=== PATIENT | male | born 1955 | race Caucasian/White ===

== ENCOUNTER → 2025-10-24 | Outpatient (CLI) | payer MEDICARE, SELFPAY ==
--- NOTE | 2025-10-24 09:08 | ECHOD_ITS ---
Reason For Study Reason For Study: AR Procedure This was a 2D Doppler, Color Flow transthoracic echocardiogram. Exam performed in department. Left Ventricle Normal-sized left ventricle. Left ventricular ejection fraction by Oshea's biplane: 50%. Systolic function borderline reduced. E/e' suggest normal filling pressures. No regional wall motion abnormalities noted. Borderline global hypokinesis. Right Ventricle Normal right ventricle. Normal systolic function. Unable to estimate RV systolic pressure due to insufficient tricuspid regurgitant envelope. Atria The left and right atria are normal. Estimated RA pressure: 3 mmHg. Normal atrial septum. Mitral Valve Normal mitral valve. Mild mitral regurgitation. No mitral stenosis. Tricuspid Valve Normal tricuspid valve. Trace tricuspid regurgitation. No tricuspid stenosis. Aortic Valve Trileaflet aortic valve. Mild aortic regurgitation. No hemodynamically significant aortic stenosis. Pulmonic Valve Normal pulmonic valve. Trace pulmonic regurgitation. No pulmonic stenosis. Great Vessels Normal aortic root. Normal ascending aorta. Pericardium/Pleural No pericardial effusion. MMode/2D Measurements & Calculations LVIDd: 5.4 cm IVSd: 1.2 cm Ao root diam: 3.5 cm LVIDs: 3.5 cm LVPWd: 1.2 cm RVDd: 3.3 cm FS: 36.6 % LAV(MOD-bp): 52.9 ml LVAd ap4: 24.3 cm2 SV(MOD-sp4): 31.9 ml LAV(MOD-bp) Indexed: 28.7 ml/m2 LVLd ap4: 7.6 cm SI(MOD-sp4): 17.3 ml/m2 LAV(MOD-sp2): 61.7 ml EDV(MOD-sp4): 66.8 ml LAV(MOD-sp4): 45.2 ml EDV(sp4-el): 66.5 ml LVAs ap4: 15.8 cm2 LVLs ap4: 6.4 cm ESV(MOD-sp4): 34.9 ml ESV(sp4-el): 33.2 ml EF(MOD-sp4): 47.8 % EF(sp4-el): 50.1 % SV(sp4-el): 33.3 ml LA A4 area: 17.7 cm2 RA A4 area: 15.7 cm2 Time Measurements MV dec time: 0.35 sec Doppler Measurements & Calculations MV E max jett: 58.9 cm/sec Lat Peak E' Jett: 9.2 cm/sec Med Peak E' Jett: 8.6 cm/sec MV A max jett: 47.1 cm/sec E/E' lat: 6.4 E/E' med: 6.9 MV E/A: 1.3 MV V2 max: 72.6 cm/sec Ao V2 max: 135.4 cm/sec MV max P.1 mmHg MV dec slope: 166.2 cm/sec2 Ao max P.3 mmHg MV V2 mean: 36.3 cm/sec Ao V2 mean: 90.8 cm/sec MV mean P.70 mmHg Ao mean P.8 mmHg MV V2 VTI: 34.8 cm Ao V2 VTI: 34.9 cm AV (velocity ratio): 0.73 LV V1 max: 101.1 cm/sec PA V2 max: 99.8 cm/sec LV V1 max P.1 mmHg PA V2 mean: 63.2 cm/sec LV V1 mean P.1 mmHg LV V1 mean: 67.4 cm/sec LV V1 VTI: 25.4 cm ECHO/Echo Complete Interpretation Summary Left ventricular EF by Oshea's biplane: 50%, Borderline reduced LV function w ith borderline global LV hypokinesis Normal right ventricular systolic function Mild aortic regurgitation Mild mitral regurgitation Ordering Physician: Nestor Ward Referring Physician: Nestor Ward Performed By: Rosa Cortes RCS
--- OUTSIDE RECORDS SUMMARY | 2025-10-24 09:40 | XMS RPT_ITS | CCD ---
Author Organization [facility] Care Team Providers Care Outcomes Specialist Name Role Phone MELVI AMARAL Consulting Unavailable KEYA, DR DEJA Iniguez Admitting Unavaila ble KEYA, DR DEJA Iniguez Primary Care Unavaila ble KEYA, DR DEJA Iniguez Attending Unavaila ble PROVIDER, UNKNOWN Consulting Unavailable KEYA, DR DEJA Iniguez Admitting Unavaila ble KEYA, DR DEJA Iniguez Primary Care Unavaila ble KEYA, DR DEJA Iniguez Attending Unavaila ble Melvi Amaral MD Primary Care Provider Melvi Amaral MD Primary Care Provider Melvi Amaral MD Primary Care Provider Melvi Amaral MD Primary Care Provider Melvi Amaral MD Primary Care Provider Erik SERVER.Zulay HOYT Unavailable Rajeev SERVERAustyn BLANCO Unavailable MELVI AMARAL Primary Care Unavailable MELVI AMARAL Attending Unavailable MELVI AMARAL Attending Unavailable MELVI AMARAL Primary Care Unavailable CARLOS A HOLLAND Attending Unavailable CHRISTINA DRAKE Referring Unavailable MELVI AMARAL Primary Care Unavailable MELVI AMARAL Primary Care Unavailable CHRISTINA DRAKE Attending Unavailable MELVI AMARAL Primary Care Unavailable MELVI AMARAL Referring Unavailable Melvi Amaral Referring Unavailable Melvi Amaral Primary Care Unavailable Nestor Ward Attending Unavailable Allergies Allergy Classification Reported Allergen(s) Allergy Type Date of Onset Reaction(s) Facility (20 sources) Amoxicillin / Clavulanate; Translations: [AMOXICILLIN-POT CLAVULANATE] Drug Allergy 09-30-2005 Rash [facility] Work Phone: (20 sources) Cephalexin; Translations: [CEPHALEXIN] Drug Allergy 09-30-2005 Hives [facility] Work Phone: (20 sources) predniSONE; Translations: [PREDNISONE] Drug Allergy 07-23-2022 Intolerance [facility] Work Phone: (1 source) Amoxicillin Drug Allergy 07-11-2025 [facility] Repository (1 source) Cephalexin Drug Allergy 07-11-2025 [facility] Repository (1 source) Clavulanate Drug Allergy 07-11-2025 [facility] Repository (1 source) predniSONE Drug Allergy 07-11-2025 [facility] Repository Medications Current Medications Medication Drug Class(es) Dates Sig (Normalized) Sig (Original) [id number] 200 actuat albuterol 0.09 mg/actuat metered dose inhaler (20 sources) beta2-Adrenergic Agonist Start: 07-05-2024 take 2 puff(s) by inhalation every four hours as needed albuterol HFA (PROVENTIL HFA, VENTOLIN HFA) 90 mcg/actuation inhaler Inhale 2 Puffs as instructed every 4 hours as needed. 1 Each 5 07/05/2024 Active Start: 05-11-2020 End: 07-05-2024 take 2 puff(s) by inhalation every six hours as needed albuterol HFA (PROVENTIL HFA, VENTOLIN HFA) 90 mcg/actuation inhaler Indications: Encounter for medication refill Inhale 2 Puffs as instructed every 6 hours as needed. 1 Each 2 11/19/2021 07/05/2024 Discontinued Comment on above: Inhale 2 Puffs as in structed every 6 hours as needed. fexofenadine (20 sources) Histamine-1 Receptor Antagonist fexofenadine HCl (CEYL ALLERGY ORAL) Take 1 tablet by mouth as needed. Active fexofenadine HCl (CELY ALLERGY ORAL) Take 1 tablet by mouth as needed. 0 Active Comment on above: Take 1 tablet by kris th as needed. levothyroxine sodium 0.175 mg oral tablet (20 sources) l-Thyroxine Start: 08-31-20 End: 09-10-20 take 1 tablet by mouth once daily for thyroid dysfunction levothyroxine (LEVOXYL) 175 mcg tablet Take 1 tablet by mouth once daily. Take on empty stomach. For Thyroid. 30 tablet 11 09/10/2024 Active Start: 05-02-2020 End: 04-30-2021 take 1 tablet by mouth once daily for thyroid dysfunction levothyroxine (LEVOXYL) 150 mcg tablet Take 1 tablet by mouth once daily. Take on empty stomach. For Thyroid. 30 tablet 11 05/02/2020 04/30/2021 Discontinued Comment on above: Take 1 tablet by kris th once daily. Take on empty stomach. For Thyroid. meloxicam 15 mg oral tablet (20 sources) Nonsteroidal Anti-inflammatory Drug Start: 03-13-20 End: 08-13-20 take 1 tablet by mouth once daily at mealtime meloxicam (MOBIC) 15 mg tablet Indications: Arthritis Take 1 tablet by mouth once daily. Take with food. 30 tablet 5 08/13/2024 Active Comment on above: Take 1 tablet by kris th once daily. Take with food. perflutren lipid microspheres 1.3 mL in NaCl (PF) 0.9% 10 mL injection (DEFINITY) (9 sources) Start: 07-26-20 End: 10-25-20 perflutren lipid microspheres 1.3 mL in NaCl (PF) 0.9% 10 mL injection (DEFINITY) polyethylene glycol 3350 [id number] mg / potassium chloride 2970 mg / sodium bicarbonate 6740 mg / sodium chloride 5860 mg / sodium sulfate 30347 mg powder for oral solution (1 source) Osmotic Laxative Start: 09-21-20 End: 09-21-20 peg 3350-Electrolytes (GOLYTELY) 236-22.74-6.74 -5.86 gram suspension Indications: Screen for colon cancer , History of colonic polyps Take 4,000 mL by mouth one time only for 1 dose. Refer to printed prep instructions from your provider. 4000 mL 09/21/2024 09/21/2024 Active predniSONE 10 mg oral tablet (1 source) Start: 07-09-20 22 End: 07-18-20 22 predniSONE (DELTASONE) 10 mg tablet Indications: Itching Take 4 tabs daily for 3 days, then 2 tabs daily for 3 days, then 1 tab daily for 3 days with food. 21 tablet 0 07/09/2022 07/18/2022 Active Comment on above: Take 4 tabs daily fo r 3 days, then 2 tabs daily for 3 days, then 1 tab daily for 3 days with food. 125 ml sodium chloride 9 mg/ml prefilled syringe (9 sources) Start: 07-26-20 End: 10-25-20 sodium chloride 0.9 % (flush) 10 mL (BD POSIFLUSH) Completed/Discontinued Medications Medication Drug Class(es) Dates Sig (Normalized) Sig (Original) 120 actuat budesonide 0.16 mg/actuat / formoterol fumarate 0.0048 mg/actuat / glycopyrrolate 0.009 mg/actuat metered dose inhaler (4 sources) Corticosteroid, beta2-Adrenergic Agonist Start: 10-12-2024 End: 05-09-2025 take 2 puff(s) by inhalation twice daily budesonide-glycopy r-formoterol (BREZTRI) 160-9-4.8 mcg/actuation HFA aerosol inhaler Inhale 2 Puffs as instructed two times a day. 10.7 g 5 10/12/2024 05/09/2025 Discontinued Start: 07-27-2024 End: 08-13-2024 take 2 puff(s) by inhalation twice daily bnrtwpxznx-chfwsggs-yyxxinmokh (BREZTRI AEROSPHERE) 160-9-4.8 mcg/actuation HFA aerosol inhaler Inhale 2 Puffs as instructed two times a day. 1 Each 5 07/27/2024 08/13/2024 Discontinued calcium chloride 0.0014 meq/ml / potassium chloride 0.004 meq/ml / sodium chloride 0.103 meq/ml / sodium lactate 0.028 meq/ml injectable solution (1 source) Start: 10-07-2024 End: 10-07-2024 take 30 mL intravenously every hour 30 mL/hr, INTRAVENOUS, CONTINUOUS, Starting on Vangie 10/07/24 at 1230, Until Vangie 10/07/24 at 1317, Preprocedure diphenhydrAMINE (1 source) Histamine-1 Receptor Antagonist Start: 10-07-2024 End: 10-07-2024 12.5-50 mg, INTRAVENOUS, DIRECTED, Starting on Vangie 10/07/24 at 1300, Until Vangie 10/07/24 at 1659, DOSING DIRECTED BY PHYSICIAN FOR PROCEDURAL SEDATION ONLY, Intraprocedure 1 ml fentaNYL 0.05 mg/ml injection (1 source) Opioid Agonist Start: 10-07-2024 End: 10-07-2024 25-100 mcg, INTRAVENOUS, DIRECTED, Starting on Vangie 10/07/24 at 1300, Until Vangie 10/07/24 at 1659, DOSING DIRECTED BY PHYSICIAN FOR PROCEDURAL SEDATION ONLY, Intraprocedure 12 hr fexofenadine hydrochloride 60 mg / pseudoephedrine hydrochloride 120 mg extended release oral tablet (1 source) alpha-Adrenergic Agonist, Histamine-1 Receptor Antagonist Start: 06-06-2010 End: 05-15-2021 p-ephed hcl/fexofenadine hcl(CELY-D 12 HOUR 60 MG-120 MG TAB) Indications: Allergic rhinitis, cause unspecified Take 1 pill twice daily as needed for allegies 180 3 06/06/2010 05/15/2021 Discontinued (Discontinued by Patient) 120 actuat fluticasone propionate 0.11 mg/actuat metered dose inhaler (20 sources) Corticosteroid Start: 07-26-2022 End: 05-26-2023 fluticasone (FLOVENT HFA) 110 mcg/actuation inhaler Inhale 2 Puffs as instructed twice daily. VIA SPACER THEN RINSE AND GARGLE MOUTH WITH WATER. 1 Each 07/26/2022 05/26/2023 Discontinued Start: 08-07-2021 End: 07-26-2022 fluticasone (FLOVENT HFA) 44 mcg/actuation inhaler 1 inhalation twice daily every day, or as directed. 1 Inhaler 08/07/2021 07/26/2022 Discontinued (Changing Therapy/Dosage Form) Comment on above: 1 inhalation twice d aily every day, or as directed. Inhale 2 Puffs as in structed twice daily. VIA SPACER THEN RINSE AND GARGLE MOUTH WITH WATER. fluticasone / salmeterol (5 sources) Corticosteroid, beta2-Adrenergic Agonist Start: 05-26-20 End: 12-29-19 take 1 puff(s) by inhalation twice daily fluticasone-salmeter ol (WIXELA INHUB) 100-50 mcg/dose inhaler Indications: Mild intermittent asthma without complication Inhale 1 Puff as instructed twice daily. 1 Each 05/26/2023 12/29/2023 Discontinued (Changing Therapy/Dosage Form) Start: 05-26-2023 take 1 puff(s) by in halation twice daily fluticasone-salmeterol (WIXELA INHUB) 100-50 mcg/dose inhaler Indications: Mild intermittent asthma without complication Inhale 1 Puff as instructed twice daily. 1 Each 05/26/2023 Active Comment on above: Inhale 1 Puff as ins tructed twice daily. fluticasone-umeclid in-vilanter (TRELEGY ELLIPTA) 200-62.5-25 mcg inhalation powder (14 sources) Start: End: take 1 puff(s) by inhalation once daily fluticasone-umeclidi n-vilanter (TRELEGY ELLIPTA) 200-62.5-25 mcg inhalation powder Inhale 1 Puff as instructed once daily. 1 Each 12/29/2023 10/12/2024 Discontinued (Course of therapy completed) Start: 12-29-2023 take 1 puff(s) by inhalation once daily pivnhabuysy-flysfeixd-zulrrqah (TRELEGY ELLIPTA) 200-62.5-25 mcg inhalation powder Inhale 1 Puff as instructed once daily. 1 Each 12/29/2023 Active Start: 10-28-2023 End: 12-29-2023 take 1 puff(s) by inhalation once daily iaxccohxizc-vcycemckm-pkztirdg (TRELEGY ELLIPTA) 200-62.5-25 mcg inhalation powder Inhale 1 Puff as instructed once daily. 1 Each 10/28/2023 12/29/2023 Discontinued Start: 10-28-2023 take 1 puff(s) by inhalation once daily orbfpvermfa-xfiieakjk-anmxagcq (TRELEGY ELLIPTA) 200-62.5-25 mcg inhalation powder Inhale 1 Puff as instructed once daily. 1 Each 10/28/2023 Active Comment on above: Inhale 1 Puff as ins tructed once daily. 5 ml midazolam 1 mg/ml injection (1 source) Benzodiazepine Start: 10-07-20 End: 10-07-20 1-5 mg, INTRAVENOUS, DIRECTED, Starting on Vangie 10/07/24 at 1300, Until Vangie 10/07/24 at 1659, DOSING DIRECTED BY PHYSICIAN FOR PROCEDURAL SEDATION ONLY, Intraprocedure montelukast 10 mg oral tablet (20 sources) Leukotriene Receptor Antagonist Start: 10-30-20 End: 05-09-20 take 1 tablet by mouth once daily at bedtime montelukast (SINGULAIR) 10 mg tablet Take 1 tablet by mouth daily at bedtime. 30 tablet 11 12/26/2023 05/09/2025 Discontinued Comment on above: Take 1 tablet by kris th daily at bedtime. nirmatrelvir tablet 150 mg and ritonavir tablet 100 mg in a dose pack (PAXLOVID) (4 sources) Start: 05-15-20 End: 05-20-20 nirmatrelvir tablet 150 mg and ritonavir tablet 100 mg in a dose pack (PAXLOVID) Indications: COVID Administer TWO pink nirmatrelvir 150 mg tablets and ONE white ritonavir 100 mg tablet for a total of three tablets twice daily. 30 tablet 0 05/15/2022 05/20/2022 Start: 05-15-2022 End: 05-20-2022 nirmatrelvir tablet 150 mg a nd ritonavir tablet 100 mg in a dose pack (PAXLOVID) Indications: COVID Administer TWO pink nirmatrelvir 150 mg tablets and ONE white ritonavir 100 mg tablet for a total of three tablets twice daily. 30 tablet 0 05/15/2022 05/20/2022 Active Start: 05-15-2022 End: 05-15-2022 nirmatrelvir tablet 150 mg a nd ritonavir tablet 100 mg in a dose pack (PAXLOVID) Indications: COVID Administer TWO pink nirmatrelvir 150 mg tablets and ONE white ritonavir 100 mg tablet for a total of three tablets twice daily. 30 tablet 0 05/15/2022 05/15/2022 Discontinued Comment on above: Administer TWO pink nirmatrelvir 150 mg tablets and ONE white ritonavir 100 mg tablet for a total of three tablets twice daily. Problems Active Problems Problem Classification Problem Date Documented Date Episodic/Chronic Adjustment disorders (20 sources) Adjustment disorder with depressed mood; Translations: [Adjustment disorder with depressed mood] Onset: 10-17-2006 10-17-2006 Chronic Asthma (20 sources) Uncomplicated asthma; Translations: [Unspecified asthma, uncomplicated] Onset: 11-25-2022 Chronic Cardiac dysrhythmias (1 source) Palpitations; Translations: [Palpitations] Episodic Conditions associated with dizziness or vertigo (3 sources) Dizziness; Translations: [Dizziness and giddiness] Onset: 05-09-2025 05-09-2025 Episodic Disorders of lipid metabolism (20 sources) Mixed hyperlipidemia; Translations: [Mixed hyperlipidemia] Onset: 10-17-2006 10-17-2006 Chronic Esophageal disorders (1 source) Gastroesophageal reflux disease; Translations: [Gastro-esophageal reflux disease without esophagitis] 12-29-2023 Chronic Osteoarthritis (2 sources) Arthritis; Translations: [Unspecified osteoarthritis, unspecified site] 06-23-2023 Chronic Other and unspecified benign neoplasm (2 sources) Polyp of colon; Translations: [Polyp of colon] Episodic Other infections; including parasitic (2 sources) Post-viral disorder; 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 Other inflammatory condition of skin (1 source) Itching ; Translations: [Pruritus, unspecified] Episodic Other nervous system disorders (1 source) Neuropathy; Translations: [Polyneuropathy, unspecified] Chronic Other skin disorders (1 source) Eruption; Translations: [Rash and other nonspecific skin eruption] Episodic Other upper respiratory disease (20 sources) Allergic rhinitis; Translations: [Allergic rhinitis, unspecified] Onset: 10-17-2019 11-09-2019 Chronic Other upper respiratory disease (1 source) Allergic rhinitis due to pollen; Translations: [Allergic rhinitis due to pollen] 06-23-2023 Chronic Residual codes; unclassified (1 source) Tobacco smoking consumption - finding; Translations: [Tobacco use] 12-29-2023 Episodic Syncope (2 sources) Syncope and collapse; Translations: [Syncope and collapse] 05-09-2025 Episodic Thyroid disorders (20 sources) Hypothyroidism; Translations: [Hypothyroidism, unspecified] Onset: 10-17-2006 12-14-2015 Chronic Unclassified (1 source) History of colonic polyps; Translations: [History of colonic polyps] Onset: 10-07-2024 Viral infection (2 sources) Disease caused by 2019-nCoV; Translations: [COVID-19] Episodic Past or Other Problems Problem Classification Problem Date Documented Da te Episodic/Chronic Allergic reactions (20 sources) Asteatotic eczema; Translations: [Other specified dermatitis] Onset: 04-03-2012 04-03-2012 Episodic Gastrointestinal hemorrhage (20 sources) Hematochezia; Translations: [Melena] Onset: 10-21-2008 10-21-2008 Episodic Other and unspecified benign neoplasm (8 sources) History of polyp of colon; Translations: [Personal history of colonic polyps] Onset: 10-07-2024 Episodic Other bone disease and musculoskeletal deformities (20 sources) Senile osteopenia; Translations: [Other specified disorders of bone density and structure, unspecified site] Onset: 08-19-2018 08-19-2018 Episodic Other inflammatory condition of skin (19 sources) Itching of skin; Translations: [Pruritus, unspecified] Onset: 04-03-2012 04-03-2012 Episodic Other inflammatory condition of skin (20 sources) Pruritus, unspecified; Translations: [Unspecified pruritic disorder] Onset: 04-03-2012 04-03-2012 Episodic Other injuries and conditions due to external causes (20 sources) Excoriation of skin; Translations: [Other injury of unspecified body region, initial encounter] Onset: 04-03-2012 04-03-2012 Episodic Other screening for suspected conditions (not mental disorders or infectious disease) (15 sources) Patient encounter status; Translations: [Encounter for screening for malignant neoplasm of colon] Onset: 08-20-2024 04-09-2021 Episodic Other skin disorders (20 sources) Asteatosis cutis; Translations: [Xerosis cutis] Onset: 04-03-2012 04-03-2012 Episodic Results Test Name Value Interpretation Reference Range Facil maribeth Belle 05-23-2025 MAGGY Telephone (FAMPWS) DAIANA ABDALLA ([id number]) 1955 M Date Time Provider Department 05/23/25 JACKELYNMELVI ASTORGA Steven GAUTHIER During your visit today, we recorded the following information about you: Anny Dobson LPN 05/23/2025 11:19 AM Signed Pt reports he had OV with pcp on 05/09/25 for near syncope. Pt reports it was discussed at the appt to have pt use Zio monitor if pt continued to have episodes and if they were more frequent. (Discussed the possibility of using a Zio monitor for extended cardiac monitoring if episodes become more frequent (more than once a week) or severe). Pt reports he would like to try the Zio Monitor. Advised pt provider is out of the office until 05/26 and [employer] Section Supervisor may review. Pt reports he is out of town at this time. Please call pt with provider message. SAMI Price Krista, LPN 05/24/2025 12:52 PM Signed Pt is calling back today and would like some type of response to message below. Pt would like Zio ordered. Please call pt when provider has reviewed message. SAMI Price Jesse, APRN.EVELINA 05/24/2025 1:56 PM Signed Please let the patient know that I have ordered. Should be mailed to him today or tomorrow. Austyn Boo APRN.Evelin Cristobal MA 05/24/2025 3:56 PM Signed Pt notified. Evelin Gregg MA Allergies As of Date: 05/23/2025 Noted Allergy Reaction AUGMENTIN (AMOXICILLIN-POT CLAVUL*09/30/2005 2 - Rash KEFLEX (CEPHALEXIN) 09/30/2005 4 - Hives PREDNISONE 07/23/2022 5 - Intolerance Comments: Dizziness, tachycardia Date Reviewed: 05/09/2025 Reviewed by: Evelin Gregg MA - Fully Assessed Reason for Visit: Orders [681] Visit Diagnosis:Syncope and collapse [R55] Order(s):OUTSIDE VENDOR CARDIAC OUTPATIENT EXTENDED RHYTHM RECORDING (WITHOUT TELEMETRY) [[id number]] Order #: [id number]: 1 Prescriptions as of 05/24/2025 - levothyroxine (LEVOXYL) 175 mcg tablet Take 1 tablet by mouth once daily. Take on empty stomach. For Thyroid. - meloxicam (MOBIC) 15 mg tablet Take 1 tablet by mouth once daily. Take with food. - albuterol HFA (PROVENTIL HFA, VENTOLIN HFA) 90 mcg/actuation inhaler Inhale 2 Puffs as instructed every 4 hours as needed. - fexofenadine HCl (CELY ALLERGY ORAL) Take 1 tablet by mouth as needed. Problem List As Of Date 05/23/2025 Noted Resolved MIXED HYPERLIPIDEMIA [E78.2] 10/17/2006 ADJUSTMENT DISORDER WITH DEPRESSED MOOD [F43.21]10/17/2006 Hypothyroidism [E03.9] 10/17/2006 MELENA, BLOOD IN STOOL [K92.1] 10/21/2008 Pruritus [L29.9] 04/03/2012 Asteatotic eczema [L30.8] 04/03/2012 Xerosis cutis [L85.3] 04/03/2012 Excoriation [T14.8XXA] 04/03/2012 Osteopenia, senile [M85.80] 08/19/2018 Allergic rhinitis due to allergen [J30.9] 10/2019 Mild intermittent asthma without complication [*11/25/2022 History of colonic polyps [Z86.0100] 10/07/2024 Screen for colon cancer [Z12.11] 10/07/2024 Encounter Status:Closed by EVELIN GREGG on 05/24/25 [facility] CNOVon 05-09-2025 CNOV Office Visit (FAMPWS ) DAIANA ABDALLA ([id number]) 1955 M Date Time Provider Department 05/09/25 12:40 PM MELVI AMARAL During your visit today, we recorded the following information about you: Pulse Respiration Blood pressure Weight 75/minute 16/minute 130/80 81.2 kg Melvi Amaral MD 05/09/2025 1:25 PM Signed Chief Complaint Patient presents with: Syncope HPI Daiana Loida Abdalla is a 70 year old adult who presents here today for syncope. Pt states that he has had multiple episodes where he has felt like he was going to pass out, but has not passed out. He states that he feels something coming over him like he is moving to a different level of consciousness. He stated he looked up sx to make sure he was not having a mini stroke. He has not been evaluated at ER for this. Denies any n/v, Shortness of Breath. He does have some dizziness with it. He states he does get a little fluttering of the heart at times. It seems to occur when he is active, one time he was walking in a store. He has had an episode while driving. He states that these episodes only last 2-5 seconds. No headaches. Vision gets blurry. Denies any changes to his medication since this started other than no longer singular or Breztri inhaler. Nothing he can think of that would trigger these episodes. Near-Syncope: - Intermittent episodes of near-syncope, described as feeling like the body is crashing or shutting down, lasting a few seconds. - Episodes occur sporadically; none in the past week, but had some a week ago. - Occur in various settings, including while driving and at the store. - No specific triggers identified; denies correlation with exercise. - Denies associated dyspnea or fatigue. - Denies family history of cardiac issues, except for father who had a mitral valve issue at age 87. - Denies excessive alcohol consumption; quit drinking 6 months ago, with only occasional beer since. - Consumes caffeine regularly; last episode occurred during a drive to [place], [place], when he ensured he was caffeinated. - Questions if lack of sleep could be a contributing factor. - Daughter has hypoglycemia; Daiana wonders if episodes could be related, but denies being diabetic. 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 - Recent EKG performed. - Echo performed a couple of years ago by Dr. Salcido, supervisor malted milk, due to suspected COVID-19. - Researches mini-strokes (TIA) but does not believe symptoms fit. Asthma: - Discontinued asthma medications due to psychological side effects. - Reports improvement in asthma symptoms; willing to resume medication if symptoms become chronic again. Past medical history, appointments, medications, allergies reviewed. Previous Medical History PAST MEDICAL HISTORY Diagnosis Date Allergic rhinitis due to allergen 10/2019 Remote allergy shots, over 25 years ago. Arthritis Asthma (HCC) 10/2019 Childhood. Cancer ([facility]) Skin GERD (gastroesophageal reflux disease) Neuropathy Feet. Other and unspecified hyperlipidemia Unspecified hypothyroidism Previous Surgical History PAST SURGICAL HISTORY Procedure Laterality Date HERNIA REPAIR HX RPR UMBILICAL HRNA 5 YRS/> REDUCIBLE Family History FAMILY HISTORY Problem Relation Age of Onset Prostate Cancer Father Asthma Father Severe. Thyroid Brother Patient Allergies ALLERGIES Allergen Reactions Augmentin [Amoxicil* Rash Keflex [Cephalexin] Hives Prednisone Intolerance Dizziness, tachycardia Current Medications Current Outpatient Medications on File Prior to Visit Medication Sig dtvzsvdsnx-dkmpcrgq-el rmoterol (BREZTRI) 160-9-4.8 mcg/actuation HFA aerosol inhaler Inhale 2 Puffs as instructed two times a day. levothyroxine (LEVOXYL) 175 mcg tablet Take 1 tablet by mouth once daily. Take on empty stomach. For Thyroid. meloxicam (MOBIC) 15 mg tablet Take 1 tablet by mouth once daily. Take with food. albuterol HFA (PROVENTIL HFA, VENTOLIN HFA) 90 mcg/actuation inhaler Inhale 2 Puffs as instructed every 4 hours as needed. montelukast (SINGULAIR) 10 mg tablet Take 1 tablet by mouth daily at bedtime. fexofenadine HCl (CELY ALLERGY ORAL) Take 1 tablet by mouth as needed. No current facility-administered medications on file prior to visit. Social History Social History Tobacco Use Smoking status: Some Days Current packs/day: 0.00 Types: Cigarettes Last attempt to quit: 2022 Years since quittin.4 Smokeless tobacco: Never Tobacco comments: Infrequent smoker of cigarette (3 or less per month), marijuana couple hits per week. Vaping Use Vaping status: Never Used Substance Use Topics Alcohol use: Not Currently Comment: Beer 3 times a week Drug use: Yes Frequency: 2.0 times per week Types: Marijuana Comment: week EXAM: B (more content not included)... Normal [facility] [id number] 05-09-2025 ECG01 Ventricular Rate : 6 3 BPM Atrial Rate : 63 BPM P-R Interval : 146 ms QRS Duration : 86 ms Q-T Interval : 414 ms QTC Calculation(Bazett) : 423 ms Calculated P [place] : 39 degrees Calculated R [place] : -1 degrees Calculated T [place] : 16 degrees NORMAL SINUS RHYTHM NORMAL ECG Confirmed by MD SINGH QARAB ([id number]) on 05/10/2025 1:27:28 PM NAME : DAIANA ABDALLA PID : [id number] : 1955 Gender : Male Race : ORD : Procedure Date : May 09 2025 12:54:25 Edit Date : May 10 2025 13:27:30 Diagnosis: NORMAL SINUS RHYTHM NORMAL ECG Confirmed by MD SINGH QARAB ([id number]) on 05/10/2025 1:27:28 PM Test Reason : Location : 136 : [place] Overread By : MD SINGH QARAB Edited By : MD SINGH QARAB Referred By : Melvi Amaral Acquired by : pineda gregg ma, [facility] [id number] 10-07-2024 [id number] HNO ID: [id number] Author: DISHA BERG RN Service: ? Author Type: Registered Nurse Type: [id number] Filed: 11/25/2024 10:24 Note Text: The patient received a copy of Colonoscopy discharge instructions that contain information for how to contact the physician who performed the procedure and when to seek medical care. Normal [facility] Colonoscopyon 10-07-2024 Colonoscopy [facility] Patient Name: Daiana Abdalla Procedure Date: 10/07/2024 12:36 PM Date of : 1955 Admit Type: Outpatient Age: 69 Gender: Male Note Status: Finalized Procedure: Colonoscopy Indications: High risk colon cancer surveillance: Personal history of colonic polyps Providers: Carlos A Holland MD Patient Profile: This is a 69 year old male. Refer to note in patient chart for documentation of history and physical. Last Colonoscopy: June 2022. Referring Physician: Christina Drake (Referring ) Medicines: Fentanyl 50 micrograms IV, Midazolam 3 mg IV, Diphenhydramine 50 mg IV Complications: No immediate complications. Estimated blood loss: None. Requesting Provider: Procedure: Pre-Anesthesia Assessment: - Prior to the procedure, a History and Physical was performed, and patient medications and allergies were reviewed. The patient's tolerance of previous anesthesia was also reviewed. The risks and benefits of the procedure and the sedation options and risks were discussed with the patient. All questions were answered, and informed consent was obtained. Prior Anticoagulants: The patient has taken no anticoagulant or antiplatelet agents. ASA Grade Assessment: III - A patient with severe systemic disease. After reviewing the risks and benefits, the patient was deemed in satisfactory condition to undergo the procedure. After I obtained informed consent, the scope was passed under direct vision. Throughout the procedure, the patient's blood pressure, pulse, and oxygen saturations were monitored continuously. The Colonoscope was introduced through the anus and advanced to the cecum, identified by appendiceal orifice and ileocecal valve. The colonoscopy was performed without difficulty. The patient tolerated the procedure well. The quality of the bowel preparation was adequate to identify polyps greater than 5 mm in size. The ileocecal valve, appendiceal orifice, and rectum were photographed. Moderate Sedation: The administration of moderate sedation was initiated at 12:44. Moderate (conscious) sedation was personally administered by the endoscopist. The following parameters were monitored: oxygen saturation, heart rate, blood pressure, respiratory rate, EKG, adequacy of pulmonary ventilation, and response to care. Total physician intraservice time was 14 minutes. Findings: The perianal and digital rectal examinations were normal. Non-bleeding internal hemorrhoids were found during retroflexion. The hemorrhoids were mild and small. The appendiceal orifice appeared normal. The exam was otherwise without abnormality. Impression: - Non-bleeding internal hemorrhoids. - The appendiceal orifice is normal. - The examination was otherwise normal. - No specimens collected. Recommendation: - Patient has a contact number available for emergencies. The signs and symptoms of potential delayed complications were discussed with the patient. Return to normal activities tomorrow. Written discharge instructions were provided to the patient. - Resume previous diet. - Continue present medications. - Repeat colonoscopy in 5 years for surveillance. - Return to primary care physician PRN. Procedure Code(s): --- Professional --- 72194, Colonoscopy, flexible; diagnostic, including collection of specimen(s) by brushing or washing, when performed (separate procedure) G0500, Moderate sedation services provided by the same physician or other qualified health child care provider performing a gastrointestinal endoscopic service that sedation supports, requiring the presence of an independent trained observer to assist in the monitoring of the patient's level of consciousness and physiological status; initial 15 minutes of intra-service time; patient age 5 years or older (additional time may be reported with 62143, as appropriate) Diagnosis Code(s): --- Professional --- Z12.11, Encounter for screening for malignant neoplasm of colon Z86.0100, Personal history of colon polyps, unspecified K64.8, Other hemorrhoids CPT copyright 2020 [employer]. All rights reserved. The codes documented in this report are preliminary and upon certified social workers in health care review may be revised to meet current compliance requirements. Attending Participation: I personally performed the entire procedure. Scope In: 12:47:35 PM Scope Out: 12:58:54 PM MD Carlos A Faulkner MD 10/07/2024 1:02:19 PM This report has been signed electronically by Carlos A Holland MD Number of Addenda: 0 Note Initiated On: 10/07/2024 12:36 PM Estimated Blood Loss: Estimated blood loss: none. Normal [facility] Colonoscopy Study observatio non 10-07-2024 [facility] Gastrointestinal Endoscopy Patient Name: Daiana Abdalla Procedure Date: 10/07/2024 12:36 PM Date of : 1955 Admit Type: Outpatient Age: 69 Gender: Male Note Status: Finalized Procedure: Colonoscopy Indications: High risk colon cancer surveillance: Personal history of colonic polyps Providers: Carlos A Holland MD Patient Profile: This is a 69 year old male. Refer to note in patient chart for documentation of history and physical. Last Colonoscopy: June 2022. Referring Physician: Christina Drake (Referring ) Medicines: Fentanyl 50 micrograms IV, Midazolam 3 mg IV, Diphenhydramine 50 mg IV Complications: No immediate complications. Estimated blood loss: None. Requesting Provider: Procedure: Pre-Anesthesia Assessment: - Prior to the procedure, a History and Physical was performed, and patient medications and allergies were reviewed. The patient's tolerance of previous anesthesia was also reviewed. The risks and benefits of the procedure and the sedation options and risks were discussed with the patient. All questions were answered, and informed consent was obtained. Prior Anticoagulants: The patient has taken no anticoagulant or antiplatelet agents. ASA Grade Assessment: III - A patient with severe systemic disease. After reviewing the risks and benefits, the patient was deemed in satisfactory condition to undergo the procedure. After I obtained informed consent, the scope was passed under direct vision. Throughout the procedure, the patient's blood pressure, pulse, and oxygen saturations were monitored continuously. The Colonoscope was introduced through the anus and advanced to the cecum, identified by appendiceal orifice and ileocecal valve. The colonoscopy was performed without difficulty. The patient tolerated the procedure well. The quality of the bowel preparation was adequate to identify polyps greater than 5 mm in size. The ileocecal valve, appendiceal orifice, and rectum were photographed. Moderate Sedation: The administration of moderate sedation was initiated at 12:44. Moderate (conscious) sedation was personally administered by the endoscopist. The following parameters were monitored: oxygen saturation, heart rate, blood pressure, respiratory rate, EKG, adequacy of pulmonary ventilation, and response to care. Total physician intraservice time was 14 minutes. Findings: The perianal and digital rectal examinations were normal. Non-bleeding internal hemorrhoids were found during retroflexion. The hemorrhoids were mild and small. The appendiceal orifice appeared normal. The exam was otherwise without abnormality. Impression: - Non-bleeding internal hemorrhoids. - The appendiceal orifice is normal. - The examination was otherwise normal. - No specimens collected. Recommendation: - Patient has a contact number available for emergencies. The signs and symptoms of potential delayed complications were discussed with the patient. Return to normal activities tomorrow. Written discharge instructions were provided to the patient. - Resume previous diet. - Continue present medications. - Repeat colonoscopy in 5 years for surveillance. - Return to primary care physician PRN. Procedure Code(s): --- Professional --- 67162, Colonoscopy, flexible; diagnostic, including collection of specimen(s) by brushing or washing, when performed (separate procedure) G0500, Moderate sedation services provided by the same physician or other qualified health child care provider performing a gastrointestinal endoscopic service that sedation supports, requiring the presence of an independent trained (more content not included)... PROVATION [facility] Radiology Study observation (narrative) [facility] HISTORY PHYSICALon HISTORY PHYSICAL HNO ID: [id number] Author: CARLOS A HOLLAND MD Service: General Surgery Author Type: Physician Type: H&P Filed: 10/07/2024 12:40 Note Text: HISTORY AND PHYSICAL Daiana Loida Kanne : 1955 REFERRING PHYSICIAN: No referring provider defined for this encounter. CHIEF COMPLAINT: Patient presents with: Consult: Colonoscopy consultation. HPI: Daiana is a 69 year old adult referred for endoscopy. Daiana notes due for screening colonoscopy- hx of polyps. Daiana denies abdominal pain.. Daiana denies diarrhea. Daiana denies constipation. Daiana denies a change in bowel habits. Daiana denies melena. Daiana denies bright red blood per rectum. Daiana denies hemorrhoids. Daiana denies heartburn. Daiana denies dysphagia. Daiana denies a history of ulcers/ peptic ulcer disease. Daiana denies family history of colon issues. Daiana has undergone prior endoscopy. Colonoscopy 04/[address] Melara at [facility]. Sedation:Midazolam 3 mg IV, Fentanyl 50 micrograms IV, Diphenhydramine 50 mg IV Impression: - Non-bleeding internal hemorrhoids. - Diverticulosis in the sigmoid colon. - Nodular and pseudopolypoid mucosa in the cecum. Biopsied. CONVERTED FINAL DIAGNOSIS Colon, thickened cecal fold, biopsy (A) - Sessile serrated polyp. Colonoscopy with 06/[address] Prater at [facility]. Sedation: Midazolam 4 mg IV, Fentanyl 75 micrograms IV Impression: - Preparation of the colon was fair. - One 15 mm polyp in the cecum, removed with mucosal resection. Resected and retrieved. Clip was placed. - The examination was otherwise normal. - Mucosal resection was performed. Resection and retrieval were complete. FINAL DIAGNOSIS A. Cecal polyp, biopsy: - Sessile serrated polyp. CAYETANO/lakesha 06/19/2022 Repeat colonoscopy in 6 mos. CURRENT MEDICATIONS Current Outpatient Medications Medication Sig levothyroxine (LEVOXYL) 175 mcg tablet Take 1 tablet by mouth once daily. Take on empty stomach. For Thyroid. meloxicam (MOBIC) 15 mg tablet Take 1 tablet by mouth once daily. Take with food. albuterol HFA (PROVENTIL HFA, VENTOLIN HFA) 90 mcg/actuation inhaler Inhale 2 Puffs as instructed every 4 hours as needed. fluticasone-umeclidin- vilanter (TRELEGY ELLIPTA) 200-62.5-25 mcg inhalation powder Inhale 1 Puff as instructed once daily. montelukast (SINGULAIR) 10 mg tablet Take 1 tablet by mouth daily at bedtime. fexofenadine HCl (CELY ALLERGY ORAL) Take 1 tablet by mouth as needed. No current facility-administered medications for this visit. ALLERGIES: Augmentin [Amoxicillin-Pot Clavulanate], Keflex [Cephalexin], and Prednisone PAST MEDICAL HISTORY PAST MEDICAL HISTORY Diagnosis Date Allergic rhinitis due to allergen 10/2019 Remote allergy shots, over 25 years ago. Arthritis Asthma 10/2019 Childhood. Cancer (HCC) Skin GERD (gastroesophageal reflux disease) Neuropathy Feet. Other and unspecified hyperlipidemia Unspecified hypothyroidism PAST SURGICAL HISTORY PAST SURGICAL HISTORY Procedure Laterality Date HERNIA REPAIR HX RPR UMBILICAL HRNA 5 YRS/> REDUCIBLE FAMILY HISTORY FAMILY HISTORY Problem Relation Age of Onset Prostate Cancer Father Asthma Father Severe. Thyroid Brother SOCIAL HISTORY Social History Tobacco Use Smoking status: Some Days Current packs/day: 0.00 Types: Cigarettes Last attempt to quit: 2022 Years since quittin.8 Smokeless tobacco: Never Tobacco comments: Infrequent smoker of cigarette (3 or less per month), marijuana couple hits per week. Vaping Use Vaping status: Never Used Substance Use Topics Alcohol use: Not Currently Comment: Beer 3 times a week Drug use: Yes Frequency: 2.0 times per week Types: Marijuana Comment: week REVIEW OF SYMPTOMS: REVIEW OF SYSTEMS: General: The patient denies fatigue, denies weight loss, denies weight gain, denies feeling hot, and feelings of cold. Eyes: The patient denies glaucoma, denies eye injury/surgery, + glasses or contacts. Ear/Nose/Throat: The patient + allergies, denies hayfever, denies ear infections, and denies bloody noses. Cardiovascular: The patient denies chest pain, denies heart disease, denies high blood pressure, denies high cholesterol, and denies poor circulation. Respiratory: The patient denies tuberculosis, denies pneumonia, denies frequent cough, denies shortness of breath, and denies coughing up blood. Gastrointestinal: The patient denies difficulty swallowing, denies acid reflux, denies ulcers, denies jaundice/hepatitis, denies gallbladder problems, denies vomiting, denies black or tarry stools, denies hemorrhoids, denies bleeding from rectum, denies diverticulitis, denies constipation, denies diarrhea, denies loss of stool control, and denies hernias. Kidney/Bladder: The patient denies kidney stones, denies urine infections, and denies bloody urine. Skin: The patient + a history of skin cancer, denies bleeding/changing moles (more content not included)... Normal [facility] NURSING PROGon 10-07-2024 NURSING PROG HNO ID: [id number] Author: DISHA BERG RN Service: ? Author Type: Registered Nurse Type: Nursing Progress Note Filed: 10/07/2024 13:23 Note Text: pt arrived to phase 2 resting on left side. SR up x 2, call light in reach. Disha Berg RN Normal [facility] CNOVon 09-21-2024 CNOV Office Visit (GENSWS ) DAIANA ABDALLA ([id number]) 1955 [facility] Date Time Provider Department 09/21/24 8:00 AM CHRISTINA DRAKE During your visit today, we recorded the following information about you: Temperature Pulse Blood pressure Weight 97.3 degrees 76/minute 143/83 84.3 kg Height 1.651 m Christina Drake APRN.CNP 09/21/2024 9:10 AM Signed HISTORY AND PHYSICAL Daiana Abdalla : 1955 REFERRING PHYSICIAN: No referring provider defined for this encounter. CHIEF COMPLAINT: Patient presents with: Consult: Colonoscopy consultation. HPI: Daiana is a 69 year old adult referred for endoscopy. Daiana notes due for screening colonoscopy- hx of polyps. Daiana denies abdominal pain.. Daiana denies diarrhea. Daiana denies constipation. Daiana denies a change in bowel habits. Daiana denies melena. Daiana denies bright red blood per rectum. Daiana denies hemorrhoids. Daiana denies heartburn. Daiana denies dysphagia. Daiana denies a history of ulcers/ peptic ulcer disease. Daiana denies family history of colon issues. Daiana has undergone prior endoscopy. Colonoscopy 04/[address] Melara at [facility]. Sedation:Midazolam 3 mg IV, Fentanyl 50 micrograms IV, Diphenhydramine 50 mg IV Impression: - Non-bleeding internal hemorrhoids. - Diverticulosis in the sigmoid colon. - Nodular and pseudopolypoid mucosa in the cecum. Biopsied. CONVERTED FINAL DIAGNOSIS Colon, thickened cecal fold, biopsy (A) - Sessile serrated polyp. Colonoscopy with 06/[address] Prater at [facility]. Sedation: Midazolam 4 mg IV, Fentanyl 75 micrograms IV Impression: - Preparation of the colon was fair. - One 15 mm polyp in the cecum, removed with mucosal resection. Resected and retrieved. Clip was placed. - The examination was otherwise normal. - Mucosal resection was performed. Resection and retrieval were complete. FINAL DIAGNOSIS A. Cecal polyp, biopsy: - Sessile serrated polyp. CAYETANO/lakesha 06/19/2022 Repeat colonoscopy in 6 mos. Current Outpatient Medications Medication Sig levothyroxine (LEVOXYL) 175 mcg tablet Take 1 tablet by mouth once daily. Take on empty stomach. For Thyroid. meloxicam (MOBIC) 15 mg tablet Take 1 tablet by mouth once daily. Take with food. albuterol HFA (PROVENTIL HFA, VENTOLIN HFA) 90 mcg/actuation inhaler Inhale 2 Puffs as instructed every 4 hours as needed. fluticasone-umeclidin- vilanter (TRELEGY ELLIPTA) 200-62.5-25 mcg inhalation powder Inhale 1 Puff as instructed once daily. montelukast (SINGULAIR) 10 mg tablet Take 1 tablet by mouth daily at bedtime. fexofenadine HCl (CELY ALLERGY ORAL) Take 1 tablet by mouth as needed. No current facility-administered medications for this visit. ALLERGIES: Augmentin [Amoxicillin-Pot Clavulanate], Keflex [Cephalexin], and Prednisone PAST MEDICAL HISTORY Diagnosis Date Allergic rhinitis due to allergen 10/2019 Remote allergy shots, over 25 years ago. Arthritis Asthma 10/2019 Childhood. Cancer (HCC) Skin GERD (gastroesophageal reflux disease) Neuropathy Feet. Other and unspecified hyperlipidemia Unspecified hypothyroidism PAST SURGICAL HISTORY Procedure Laterality Date HERNIA REPAIR HX RPR UMBILICAL HRNA 5 YRS/> REDUCIBLE FAMILY HISTORY Problem Relation Age of Onset Prostate Cancer Father Asthma Father Severe. Thyroid Brother Social History Tobacco Use Smoking status: Some Days Current packs/day: 0.00 Types: Cigarettes Last attempt to quit: 2022 Years since quittin.8 Smokeless tobacco: Never Tobacco comments: Infrequent smoker of cigarette (3 or less per month), marijuana couple hits per week. Vaping Use Vaping status: Never Used Substance Use Topics Alcohol use: Not Currently Comment: Beer 3 times a week Drug use: Yes Frequency: 2.0 times per week Types: Marijuana Comment: week REVIEW OF SYMPTOMS: REVIEW OF SYSTEMS: General: The patient denies fatigue, denies weight loss, denies weight gain, denies feeling hot, and feelings of cold. Eyes: The patient denies glaucoma, denies eye injury/surgery, + glasses or contacts. Ear/Nose/Throat: The patient + allergies, denies hayfever, denies ear infections, and denies bloody noses. Cardiovascular: The patient denies chest pain, denies heart disease, denies high blood pressure, denies high cholesterol, and denies poor circulation. Respiratory: The patient denies tuberculosis, denies pneumonia, denies frequent cough, denies shortness of breath, and denies coughing up blood. Gastrointestinal: The patient denies difficulty swallowing, denies acid reflux, denies ulcers, denies jaundice/hepatitis, denies gallbladder problems, denies vomiting, denies black or tarry stools, denies hemorrhoids, denies bleeding from rectum, denies diverticulitis, denies constipation, denies diarrhea, denies loss of stool control, and d (more content not included)... Normal [facility] Barbra 09-21-2024 EVELINAN Telephone ([employer]) DAIANA ABDALLA ([id number]) 1955 M Date Time Provider Department 09/21/24 ALIE DRAKE [employer] During your visit today, we recorded the following information about you: Tigist Guo 09/21/2024 8:36 AM Signed 10-07-2024 Colonoscopy [facility] provider went over all prep instructions, patient has direct number to call if any questions after appointment Tigist Guo Allergies As of Date: 09/21/2024 Noted Allergy Reaction AUGMENTIN (AMOXICILLIN-POT CLAVUL*09/30/2005 2 - Rash KEFLEX (CEPHALEXIN) 09/30/2005 4 - Hives PREDNISONE 07/23/2022 5 - Intolerance Comments: Dizziness, tachycardia Date Reviewed: 09/21/2024 Reviewed by: Christina Drake APRN.CERTIFIED PHYSICIAN'S ASSISTANT - Fully Assessed Prescriptions as of 02/14/2025 - otthdooarb-fohuqvyt-lm rmoterol (BREZTRI) 160-9-4.8 mcg/actuation HFA aerosol inhaler Inhale 2 Puffs as instructed two times a day. - levothyroxine (LEVOXYL) 175 mcg tablet Take 1 tablet by mouth once daily. Take on empty stomach. For Thyroid. - meloxicam (MOBIC) 15 mg tablet Take 1 tablet by mouth once daily. Take with food. - albuterol HFA (PROVENTIL HFA, VENTOLIN HFA) 90 mcg/actuation inhaler Inhale 2 Puffs as instructed every 4 hours as needed. - montelukast (SINGULAIR) 10 mg tablet Take 1 tablet by mouth daily at bedtime. - fexofenadine HCl (CELY ALLERGY ORAL) Take 1 tablet by mouth as needed. Problem List As Of Date 09/21/2024 Noted Resolved MIXED HYPERLIPIDEMIA [E78.2] 10/17/2006 ADJUSTMENT DISORDER WITH DEPRESSED MOOD [F43.21]10/17/2006 Hypothyroidism [E03.9] 10/17/2006 MELENA, BLOOD IN STOOL [K92.1] 10/21/2008 Pruritus [L29.9] 04/03/2012 Asteatotic eczema [L30.8] 04/03/2012 Xerosis cutis [L85.3] 04/03/2012 Excoriation [T14.8XXA] 04/03/2012 Osteopenia, senile [M85.80] 08/19/2018 Allergic rhinitis due to allergen [J30.9] 10/2019 Mild intermittent asthma without complication [*11/25/2022 Encounter Status:Closed by TIGIST GUO on 02/14/25 Normal [facility] Comprehensive metabolic 2000 panelon 08-20-2024 Albumin [Mass/Vol] 4.1 g/dL Normal 3.9-4.9 [facility] Comment on above: Order Comment: Speci men Type: BLOOD SPECIMENOrdering Facility: [facility] Address: [address] [place] [address] Performed By: #### 2 4331-1, 17545-3, 6-3 ####[facility] LABCLIA [id number] [address] [address] [place] ALP [Catalytic activity/Vol] 93 U/L Normal 38-113 [facility] Comment on above: Order Comment: Speci men Type: BLOOD SPECIMENOrdering Facility: [facility] Address: [address] [place] [address] Performed By: #### 2 4331-1, 00026-5, 6-3 ####[facility] LABCLIA [id number] [place] [address] [place] ALT [Catalytic activity/Vol] 23 U/L Normal 10-54 [facility] Comment on above: Order Comment: Speci men Type: BLOOD SPECIMENOrdering Facility: [facility] Address: [address] [place] [address] Performed By: #### 2 4331-1, 20840-9, 3015-3 ####[facility] LABCLIA [id number] [address] [address] [place] Anion gap [Moles/Vol] 12 mmol/L Normal 8-15 [facility] Comment on above: Order Comment: Speci men Type: BLOOD SPECIMENOrdering Facility: [facility] Address: [address] [place] [address] Performed By: #### 2 4331-1, 35991-9, 6-3 ####[facility] LABCLIA [id number] [place] [address] [place] AST [Catalytic activity/Vol] 26 U/L Normal 14-40 [facility] Comment on above: Order Comment: Speci men Type: BLOOD SPECIMENOrdering Facility: [facility] Address: [address] [place] [address] Performed By: #### 2 4331-1, 43192-3, 3015-3 ####[facility] LABCLIA [id number] [place] [address] [place] Bilirubin [Mass/Vol] 0.4 mg/dL Normal 0.2-1.3 [facility] Comment on above: Order Comment: Speci men Type: BLOOD SPECIMENOrdering Facility: [facility] Address: [address] [place] [address] Performed By: #### 2 4331-1, 68841-9, 3 ####[facility] LABCLIA [id number] [place] [address] [place] Calcium [Mass/Vol] 8.8 mg/dL Normal 8.5-10.2 [facility] Comment on above: Order Comment: Speci men Type: BLOOD SPECIMENOrdering Facility: [facility] Address: [address] [place] [address] Performed By: #### 2 4331-1, 10923-6, 3 ####[facility] LABCLIA [id number] [place] [address] [place] Chloride [Moles/Vol] 104 mmol/L Normal 98-107 [facility] Comment on above: Order Comment: Speci men Type: BLOOD SPECIMENOrdering Facility: [facility] Address: [address] [place] [address] Performed By: #### 2 4331-1, 37962-6, 3015-3 ####[facility] [facility] [id number] [place] [address] [place] CO2 [Moles/Vol] 23 mmol/L Normal 22-30 [facility] Comment on above: Order Comment: Speci men Type: BLOOD SPECIMENOrdering Facility: [facility] Address: [address] [place] [address] Performed By: #### 2 4331-1, 79835-8, 3 ####[facility] [id number] [place] [address] [place] Creatinine [Mass/Vol] 0.81 mg/dL Normal 0.73-1.22 [facility] Comment on above: Order Comment: Speci men Type: BLOOD SPECIMENOrdering Facility: [facility] Address: [address] [place] [address] Performed By: #### 2 4331-1, , 3016-01 ####[facility] [id number] [place] [address] [place] Creatinine and Glomerular filtration rate.predicted panel (S/P/Bld) 95 mL/min/1.73m??? Normal >=60 [facility] Comment on above: Order Comment: Mikhaili men Type: BLOOD SPECIMENOrdering Facility: [facility] Address: [address] [place] [address] Result Comment: Aruna mated Glomerular Filtration Rate (eGFR) is calculated using the 2020 CKD-EPI creatinine equation. This equation utilizes serum creatinine, sex, and age as parameters. The creatinine assay has traceable calibration to isotope dilution-mass spectrometry. Refer to KDIGO guidelines for clinical interpretation. In patients with unstable renal function, e.g. those with acute kidney injury, the eGFR may not accurately reflect actual GFR. Performed By: #### 2 4331-1, 28564-1, 3 ####[facility] [id number] [place] [id number] [place] Glucose [Mass/Vol] 93 mg/dL Normal 74-99 [facility] Comment on above: Order Comment: Speci men Type: BLOOD SPECIMENOrdering Facility: [facility] Address: [address] [place] [place] [id number] Result Comment: The [place] Diabetes [employer] (ADA) provides guidance for cutoff values for fasting glucose and random glucose. The ADA defines fasting as no caloric intake for at least 8 hours. Fasting plasma glucose results between 100 to 125 mg/dL indicate increased risk for diabetes (prediabetes). Fasting plasma glucose results greater than or equal to 126 mg/dL meet the criteria for diagnosis of diabetes. In the absence of unequivocal hyperglycemia, results should be confirmed by repeat testing. In a patient with classic symptoms of hyperglycemia or hyperglycemic crisis, random plasma glucose results greater than or equal to 200 mg/dL meet the criteria for diagnosis of diabetes. Reference: Standards of Medical Care in Diabetes 2016, [place] [employer]. Diabetes Care. 2016.39(Suppl 1). Performed By: #### 2 4331-1, , 3 ####[facility] [id number] [place] [address] [place] Potassium [Moles/Vol] 4.4 mmol/L Normal 3.7-5.1 [facility] Comment on above: Order Comment: Speci men Type: BLOOD SPECIMENOrdering Facility: [facility] Address: [address] [place] [address] Performed By: #### 2 4331-1, , 3 ####[facility]IA [id number] [address] [address] [place] Protein [Mass/Vol] 6.7 g/dL Normal 6.3-8.0 [facility] Comment on above: Order Comment: Speci men Type: BLOOD SPECIMENOrdering Facility: [facility] Address: [address] [place] [address] Performed By: #### 2 4331-1, , 3 ####[facility] [id number] [address] [address] [place] Sodium [Moles/Vol] 139 mmol/L Normal 136-144 [facility] Comment on above: Order Comment: Speci men Type: BLOOD SPECIMENOrdering Facility: [facility] Address: [address] [place], [place] [address] Performed By: #### 2 4331-1, , 3 ####[facility] [id number] [address] [address] [place] Urea nitrogen [Mass/Vol] 15 mg/dL Normal 9-24 [facility] Comment on above: Order Comment: Speci men Type: BLOOD SPECIMENOrdering Facility: [facility] Address: [address] [place] [address] Performed By: #### 2 4331-1, , 3 ####[facility] [id number] [place] [id number] [place] Lipid 1996 panelon 4 Cholesterol [Mass/Vol] 231 mg/dL High <200 [facility] Comment on above: Order Comment: Speci men Type: BLOOD SPECIMENOrdering Facility: [facility] Address: [address] [place], [place] [id number] Result Comment: <200 mg/dL, Desirable 200-239 mg/dL, Borderline high >239 mg/dL, High Performed By: #### 2 4331-1, , 3016-01 ####[facility] [id number] [place] [id number] [place] Cholesterol in HDL [Mass/Vol] 45 mg/dL Normal >39 [facility] Comment on above: Order Comment: Speci men Type: BLOOD SPECIMENOrdering Facility: [facility] Address: [address] [place], [place] [id number] Result Comment: 40-5 9 mg/dL, Acceptable >59 mg/dL, High: Negative risk factor for coronary heart disease <40 mg/dL, Low: Positive risk factor for coronary heart disease Performed By: #### 2 4331-1, 60056-5, 3015-3 ####[facility] [id number] [place] Cholesterol in LDL [Mass/Vol] 170 mg/dL High <100 [facility] Comment on above: Order Comment: Speci men Type: BLOOD SPECIMENOrdering Facility: [facility] Address: [address] [place] [address] Result Comment: <100 mg/dL, Optimal 100-129 mg/dL, Near optimal/above optimal 130-159 mg/dL, Borderline high 160-189 mg/dL, High >189 mg/dL, Very high Secondary prevention optimal LDL Cholesterol levels are recommended to be < 70 mg/dL Performed By: #### 2 4331-1, 36578-0, 6-3 ####[facility] [id number] [address] STATES [facility] Cholesterol in LDL/Cholesterol in HDL [Mass ratio] 3.78 {ratio} High <2.54 [facility] Comment on above: Order Comment: Speci men Type: BLOOD SPECIMENOrdering Facility: [facility] Address: [address] [place] [address] Result Comment: Refe rence: 1. National Cholesterol Education Program ATP III Guideline At-A-Glance Quick Desk Reference: National Heart, Lung, and Blood Bowdle. National Institutes of Health. 2001: NIH Publication No. 01-3305. 2. An International Atherosclerosis Society position paper: global recommendations for the management of dyslipidemia: executive summary, Atherosclerosis. 2014: 232(2):410-413. Performed By: #### 2 4331-1, 21046-6, 3015-3 ####[facility] [id number] [address] [place] Cholesterol in VLDL [Mass/Vol] 16 mg/dL Normal <30 [facility] Comment on above: Order Comment: Mikhaili men Type: BLOOD SPECIMENOrdering Facility: [facility] Address: [address] [place] [address] Performed By: #### 2 4331-1, 17649-9, 6-3 ####[facility] [id number] [place] [address] [place] Cholesterol non HDL [Mass/Vol] 186 mg/dL High <130 [facility] Comment on above: Order Comment: Speci men Type: BLOOD SPECIMENOrdering Facility: [facility] Address: [address] [place] [address] Result Comment: <130 mg/dL, Optimal 130-159 mg/dL, Near optimal/above optimal 160-189 mg/dL, Borderline high 190-219 mg/dL, High >219 mg/dL, Very high Secondary prevention optimal non HDL Cholesterol levels are recommended to be <100 mg/dL Performed By: #### 2 4331-1, 88291-8, 6-3 ####[facility] [id number] [place] [address] [place] Cholesterol.total/C holesterol in HDL [Mass ratio] 5.13 {ratio} High <5.10 [facility] Comment on above: Order Comment: Speci men Type: BLOOD SPECIMENOrdering Facility: [facility] Address: [address] [place] [address] Performed By: #### 2 4331-1, 54325-0, 6-3 ####[facility] [id number] [place] [address] [place] FASTING TIME 12 hrs Normal [facility] Comment on above: Order Comment: Speci men Type: BLOOD SPECIMENOrdering Facility: [facility] Address: [address] [place] [address] Performed By: #### 2 4331-1, 69088-5, 6-3 ####[facility] [id number] [place] [address] [place] Triglyceride [Mass/Vol] 82 mg/dL Normal <150 [facility] Comment on above: Order Comment: Speci men Type: BLOOD SPECIMENOrdering Facility: [facility] Address: [address] [place] [address] Result Comment: <150 mg/dL, Normal 150-199 mg/dL, Borderline high 200-499 mg/dL, High >499 mg/dL, Very high Performed By: #### 2 4331-1, 90318-2, 3016-3 ####[facility] LABIA [id number] [place] [id number] [place] PSA/PROSTATE SPECIFIC ANTIGE N SCREENINGon 08-20-2024 Prostate specific Ag [Mass/Vol] 0.71 ng/mL Normal [facility] Comment on above: Order Comment: Speci men Type: BLOOD SPECIMENOrdering Facility: [facility] Address: [address] [place] [address] Performed By: #### P SAS1 ####[facility] [id number] [place] [address] [place] TSH SerPl-aCncon 08-20-2024 TSH Qn 1.380 m[IU]/L Normal 0.270-4.200 [facility] Comment on above: Order Comment: Speci men Type: BLOOD SPECIMENOrdering Facility: [facility] Address: [address] [place] [address] Performed By: #### 2 4331-1, 83321-8, 3016-3 ####[facility] [id number] [address] [place] CNOVon 08-13-2024 [facility] DAIANA ABDALLA ([id number]) 1955 M [facility] Date Time Provider Department 08/13/24 8:00 AM [facility] During your visit today, we recorded the following information about you: Pulse Respiration Blood pressure Weight 68/minute 16/minute 128/78 83.1 kg Height 1.676 m Melvi Amaral MD 08/13/2024 2:10 PM Signed Daiana Loida Lianne is a 69 year old adult here for a Medicare wellness visit. Overall doing well Skin concerns; some sun damage; lesion on left forearm that does not heal. Discussed colonoscopy; had serrated poly removed 2021; at the time 6 month follow up recommended. He will follow with Dr Melara. Arthritis pain in hands and knees, uses mobic 1-2 times.week Medicare Health Risk Assessment General Health Excellent Exercise: Minutes/Day 140 min Exercise: Days/Week 7 days Alcohol: Daily Use Patient declined Alcohol: Drinks/Day Patient declined Alcohol: 6 or more drinks Patient declined Feel off balance No Concerns: Teeth/Dentures No Concerns: Sexual function No Troubled by feelings None of the above Frequency: Eating healthy diet Nearly every day ADLs requiring help None of the above Safety precautions in home/vehicle Smoke, vape, chews tobacco No Difficulty hearing No Difficulty seeing No Current Providers Specialists: I have reviewed specialist-related care of the patient in the medical record. Current care team: Patient Care Team: Melvi Amaral MD as PCP - General Outside specialists seen: Pulmonary Medical/Family history review Reviewed and updated problem list, medical/surgical/famil y/social history, medications, and allergies. Opioid use review Opioid Medications (last 90 days) No data to display Anxiety/Depression screening PHQ-9 Score: 0. ALEXANDRA-7 Score: 0. Recommendation: no further intervention at this time Cognitive screening Cognitive screening reviewed and Patient declined Mini-Cog test. Functional Observation Was the patient's Timed Up AND Go test unsteady or >= 12 seconds? No Advance Care Planning Patient did not wish or was not able to name a surrogate decision maker or provide an advance care plan Not sure if they have this, he will check with his Measurements BP 128/78 Pulse 68 Resp 16 Ht 167.6 cm (5' 6) Wt 83.1 kg (183 lb 3.2 oz) BMI 29.57 kg/m? Vision Screening: Right: 20/20 Left: 20/ 20 Both: 20/20 CV: RRR Lungs: clear Skin: raised excoriated lesion left forearm Assessment/Plan Medicare annual wellness visit, subsequent (Z00.00) - Counseled on healthy diet and regular exercise - Personalized prevention plan provided ASSESSMENT/PLAN: 1. Medicare annual wellness visit, subsequent - ICD9: V70.0, ICD10: Z00.00 (primary diagnosis) - Counseled on healthy diet and regular exercise 2. Arthritis - ICD9: 716.90, ICD10: M19.90 Use mobic sparingly - MELOXICAM 15 MG TABLET 3. Screening for depression - ICD9: V79.0, ICD10: Z13.31 - DEPRESSION SCREENING 4. Encounter for screening examination for other mental health and behavioral disorders - ICD9: V79.8, ICD10: Z13.39 - ANXIETY SCREENING 5. Mixed hyperlipidemia - ICD9: 272.2, ICD10: E78.2 - LIPID PANEL BASIC - COMPREHENSIVE METABOLIC PANEL 6. Acquired hypothyroidism - ICD9: 244.9, ICD10: E03.9 - THYROID STIMULATING HORMONE 7. Screening for prostate cancer - ICD9: V76.44, ICD10: Z12.5 - PSA/PROSTATE SPECIFIC ANTIGEN SCREENING Notify of lab results. He will contact Katey and Dr Melara for follow up Follow up in 1 year Melvi Amaral MD Allergies As of Date: 08/13/2024 Noted Allergy Reaction AUGMENTIN (AMOXICILLIN-POT CLAVUL*09/30/2005 2 - Rash KEFLEX (CEPHALEXIN) 09/30/2005 4 - Hives PREDNISONE 07/23/2022 5 - Intolerance Comments: Dizziness, tachycardia Date Reviewed: 08/13/2024 Reviewed by: Eevlin Gregg MA - Fully Assessed Reason for Visit: Medicare Wellness Exam [4060] Primary Visit Diagnosis:Medicare annual wellness visit, subsequent [Z00.00] Other Visit Diagnoses:Arthritis [M19.90] Screening for depression [Z13.31] Encounter for screening examination for other mental health and behavioral disorders [Z13.39] Mixed hyperlipidemia [E78.2] Acquired hypothyroidism [E03.9] Screening for prostate cancer [Z12.5] Order(s):meloxicam (MOBIC) 15 mg tabletTake 1 tablet by mouth once daily. Take with food.Disp: 30 tabletRfl: 5 DEPRESSION SCREENING [] Order #: [id number]: 1 ANXIETY SCREENING [] Order #: [id number]: 1 THYROID STIMULATING HORMONE [SQTSH] Order #: [id number] FUTURE LIPID PANEL BASIC [SQLIPB] Order #: [id number] FUTURE COMPREHENSIVE METABOLIC PANEL [SQCMP] Order #: [id number] FUTURE PSA/PROSTATE SPECIFIC ANTIGEN SCREENING [SQPSAS1] Order #: [id number] FUTURE Prescriptions as of 08/13/2024 - meloxicam (MOBIC) 15 mg tablet Take 1 tablet by mouth once daily. Take wi (more content not included)... [facility] Tele[facility] (PULMWS) DAIANA ABDALLA ([id number]) 1955 [facility] Date Time Provider Department 07/27/24 FIFI SALCIDO [facility] During your visit today, we recorded the following information about you: Chary Lakhani RN 07/27/2024 9:12 AM Signed Patient calling stating that the Trelegy has become to expensive and asking if a cheaper alternative could be ordered. Patient adds that he is completely out of his med and has attempted to work with his insurance but has not gotten anywhere. [facility] [place]. YARELY Avila Kathleen, LPN 07/27/2024 10:22 AM Signed Called [facility], RX is still processing but copay has increased from $42 to $106. Pharmacy believes this is related to melanie alvarado. SAMI Cisneros Kathleen, LPN 07/27/2024 11:13 AM Signed Patient notified Jose Miguel fischer. He will compare prices. Amanda Canales LPN Allergies As of Date: 07/27/2024 Noted Allergy Reaction AUGMENTIN (AMOXICILLIN-POT CLAVUL*09/30/2005 2 - Rash KEFLEX (CEPHALEXIN) 09/30/2005 4 - Hives PREDNISONE 07/23/2022 5 - Intolerance Comments: Dizziness, tachycardia Date Reviewed: 07/05/2024 Reviewed by: Fifi Salcido MD - Fully Assessed Reason for Visit: Medication Problem [65] Order(s):budesonide-gl ycopyr-formoterol (BREZTRI AEROSPHERE) 160-9-4.8 mcg/actuation HFA aerosol inhalerInhale 2 Puffs as instructed two times a day.Disp: 1 EachRfl: 5 Prescriptions as of 07/27/2024 - uwlcsscnqh-wgcmqrmd-dr rmoterol (BREZTRI AEROSPHERE) 160-9-4.8 mcg/actuation HFA aerosol inhaler Inhale 2 Puffs as instructed two times a day. - albuterol HFA (PROVENTIL HFA, VENTOLIN HFA) 90 mcg/actuation inhaler Inhale 2 Puffs as instructed every 4 hours as needed. - fluticasone-umeclidin- vilanter (TRELEGY ELLIPTA) 200-62.5-25 mcg inhalation powder Inhale 1 Puff as instructed once daily. - montelukast (SINGULAIR) 10 mg tablet Take 1 tablet by mouth daily at bedtime. - levothyroxine (LEVOXYL) 175 mcg tablet Take 1 tablet by mouth once daily. Take on empty stomach. For Thyroid. - meloxicam (MOBIC) 15 mg tablet Take 1 tablet by mouth once daily. Take with food. - fexofenadine HCl (CELY ALLERGY ORAL) Take 1 tablet by mouth as needed. Problem List As Of Date 07/27/2024 Noted Resolved MIXED HYPERLIPIDEMIA [E78.2] 10/17/2006 ADJUSTMENT DISORDER WITH DEPRESSED MOOD [F43.21]10/17/2006 Hypothyroidism [E03.9] 10/17/2006 MELENA, BLOOD IN STOOL [K92.1] 10/21/2008 Pruritus [L29.9] 04/03/2012 Asteatotic eczema [L30.8] 04/03/2012 Xerosis cutis [L85.3] 04/03/2012 Excoriation [T14.8XXA] 04/03/2012 Osteopenia, senile [M85.80] 08/19/2018 Allergic rhinitis due to allergen [J30.9] 10/2019 Mild intermittent asthma without complication [*11/25/2022 Prescriptions ordered this encounter Disp Refills Start End BREZTRI AEROSPHERE 160 MCG-9MCG-4.8M* 1 Ea* 5 07/27/2024 Route: INHALATION Sig: Inhale 2 Puffs as instructed two times a day. Encounter Status:Closed by FIFI SALCIDO on 07/27/24 [facility] Barbra 07-16-2024 CNPN Telephone (FAMPWS) DAIANA ABDALLA ([id number]) 1955 [facility] Date Time Provider Department 07/16/24 MELVI AMARAL [facility] During your visit today, we recorded the following information about you: Evelin Gregg MA 07/16/2024 1:16 PM Signed Due for Medicare Wellness. Message left for pt to call back. KAYLEN Coleman Jillian, LPN 07/16/2024 2:16 PM Signed Patient returned call and appt scheduled. Allergies As of Date: 07/16/2024 Noted Allergy Reaction AUGMENTIN (AMOXICILLIN-POT CLAVUL*09/30/2005 2 - Rash KEFLEX (CEPHALEXIN) 09/30/2005 4 - Hives PREDNISONE 07/23/2022 5 - Intolerance Comments: Dizziness, tachycardia Date Reviewed: 07/05/2024 Reviewed by: Fifi Salcido MD - Fully Assessed Reason for Visit: due for appt [Other] Prescriptions as of 07/16/2024 - albuterol HFA (PROVENTIL HFA, VENTOLIN HFA) 90 mcg/actuation inhaler Inhale 2 Puffs as instructed every 4 hours as needed. - fluticasone-umeclidin- vilanter (TRELEGY ELLIPTA) 200-62.5-25 mcg inhalation powder Inhale 1 Puff as instructed once daily. - montelukast (SINGULAIR) 10 mg tablet Take 1 tablet by mouth daily at bedtime. - levothyroxine (LEVOXYL) 175 mcg tablet Take 1 tablet by mouth once daily. Take on empty stomach. For Thyroid. - meloxicam (MOBIC) 15 mg tablet Take 1 tablet by mouth once daily. Take with food. - fexofenadine HCl (CELY ALLERGY ORAL) Take 1 tablet by mouth as needed. Problem List As Of Date 07/16/2024 Noted Resolved MIXED HYPERLIPIDEMIA [E78.2] 10/17/2006 ADJUSTMENT DISORDER WITH DEPRESSED MOOD [F43.21]10/17/2006 Hypothyroidism [E03.9] 10/17/2006 MELENA, BLOOD IN STOOL [K92.1] 10/21/2008 Pruritus [L29.9] 04/03/2012 Asteatotic eczema [L30.8] 04/03/2012 Xerosis cutis [L85.3] 04/03/2012 Excoriation [T14.8XXA] 04/03/2012 Osteopenia, senile [M85.80] 08/19/2018 Allergic rhinitis due to allergen [J30.9] 10/2019 Mild intermittent asthma without complication [*11/25/2022 Encounter Status:Closed by YOSEF CRUM on 07/16/24 Normal [facility] NITRIC OXIDE, EXHALEDon - Yuridia Muñoz RPF T 07/05/2024 9:50 AM RESPIRATORY THERAPY ORAL EXHALED NITRIC OXIDE SERVICE DATE: 07/05/2024 SERVICE TIME: 9:50 AM Oral Exhaled Nitric Oxide measurement: 23.0 (ppb) Normal: Adult <25 ppb, pediatric (<12 years) <20 ppb High Normal / Increased: Adult 25-50 ppb, pediatric (<12 years) 20-35 ppb Moderately raised exhaled Nitric Oxide may indicate underlying inflammation, but note that: Cold and influenza can raise exhaled Nitric Oxide and some patients have higher baseline exhaled Nitric Oxide levels than others. High: Adult >50 ppb, pediatric (<12 years) >35 ppb Indicative of ongoing eosinophilic inflammation. Symptomatic patient likely to respond to steroids. Possible causes (if already on steroids): Poor compliance, recent allergen exposure, steroid dose inadequate, and steroid resistance. Note that not all patients with high exhaled nitric oxide levels display symptoms. Oral Exhaled Nitric Oxide measurement (Previous Encounters) Test Date Oral Exhaled Nitric Oxide (ppb) 07/05/2024 23.0 11/25/2022 12.0 07/26/2022 9.0 11/09/2019 83.0 (A) NAME: ARELI Diaz PATIENT NAME: Daiana Loida Abdalla DATE: July 05, 2024 TIME: 9:50 AM [facility] NITRIC OXIDE, EXHALEDon [facility] NITRIC OXIDE, EXHALEDon [facility] COLONOSCOPY DIAGNOSTICon [facility] Vital Signs Date Time Vital Sign Value Performing Clinician Faci lity 05-09-2025 12:44-0400 Body mass index (BMI) [Ratio] 29.79 kg/m2 Melvi Amaral MD Work Phone: [facility] 05-09-2025 12:44-0400 Body weight 81.2 kg Melvi Amaral MD Work Phone: [facility] 05-09-2025 12:44-0400 Diastolic blood pressure 80 mm[Hg] Melvi Amaral MD Work Phone: [facility] 05-09-2025 12:44-0400 Heart rate 75 /min Melvi Amaral MD Work Phone: [facility] 05-09-2025 12:44-0400 Respiratory rate 16 /min Melvi Amaral MD Work Phone: [facility] 05-09-2025 12:44-0400 Systolic blood pressure 130 mm[Hg] Melvi Amaral MD Work Phone: [facility] 10-07-2024 13:31-0500 Respiratory rate 16 /min Carlos A Holland MD Work Phone: [facility] 10-07-2024 13:03-0500 Heart rate 61 /min Carlos A Holland MD Work Phone: [facility] 10-07-2024 13:03-0500 SaO2% (BldA) [Mass fraction] 93 % Carlos A Holland MD Work Phone: [facility] 10-07-2024 13:00-0500 Diastolic blood pressure 84 mm[Hg] Carlos A Holland MD Work Phone: [facility] 10-07-2024 13:00-0500 Systolic blood pressure 155 mm[Hg] Carlos A Holland MD Work Phone: [facility] 10-07-2024 12:22-0500 Body mass index (BMI) [Ratio] 30.93 kg/m2 Carlos A Holland MD Work Phone: [facility] 10-07-2024 12:22-0500 Body temperature 97 [degF] Carlos A Holland MD Work Phone: [facility] 10-07-2024 12:22-0500 Body weight 84.3 kg Carlos A Holland MD Work Phone: [facility] 09-21-2024 08:07-0500 Body height 165.1 cm Christina Eric SERVER.CERTIFIED PHYSICIAN'S ASSISTANT Work Phone: [facility] 09-21-2024 08:07-0500 Body mass index (BMI) [Ratio] 30.92 kg/m2 Christina Eric SERVER.CERTIFIED PHYSICIAN'S ASSISTANT Work Phone: [facility] 09-21-2024 08:07-0500 Body temperature 97.3 [degF] Christina Eric SERVER.CERTIFIED PHYSICIAN'S ASSISTANT Work Phone: [facility] 09-21-2024 08:07-0500 Body weight 84.28 kg Christina Eric SERVER.CERTIFIED PHYSICIAN'S ASSISTANT Work Phone: [facility] 09-21-2024 08:07-0500 Diastolic blood pressure 83 mm[Hg] Christina Eric SERVER.CERTIFIED PHYSICIAN'S ASSISTANT Work Phone: [facility] 09-21-2024 08:07-0500 Heart rate 76 /min Christina Eric SERVER.CERTIFIED PHYSICIAN'S ASSISTANT Work Phone: [facility] 09-21-2024 08:07-0500 SaO2% (BldA) [Mass fraction] 100 % Christina Eric SERVER.CERTIFIED PHYSICIAN'S ASSISTANT Work Phone: [facility] 09-21-2024 08:07-0500 Systolic blood pressure 143 mm[Hg] Christina Monteroanshul GARZA Work Phone: [facility] 08-13-2024 08:03-0400 Body height 167.6 cm Melvi Amaral MD Work Phone: [facility] 08-13-2024 08:03-0400 Body mass index (BMI) [Ratio] 29.57 kg/m2 Melvi Amaral MD Work Phone: [facility] 08-13-2024 08:03-0400 Body weight 83.1 kg Melvi Amaral MD Work Phone: [facility] 08-13-2024 08:03-0400 Diastolic blood pressure 78 mm[Hg] Melvi Amaral MD Work Phone: [facility] 08-13-2024 08:03-0400 Heart rate 68 /min Melvi Amaral MD Work Phone: [facility] 08-13-2024 08:03-0400 Respiratory rate 16 /min Melvi Amaral MD Work Phone: [facility] 08-13-2024 08:03-0400 Systolic blood pressure 128 mm[Hg] Melvi Amaral MD Work Phone: [facility] 07-05-2024 09:48-0400 Body mass index (BMI) [Ratio] 30.43 kg/m2 Fifi Salcido MD Work Phone: [facility] 07-05-2024 09:48-0400 Body weight 83.46 kg Fifi Salcido MD Work Phone: [facility] 07-05-2024 09:46-0400 Body mass index (BMI) [Ratio] 30.43 kg/m2 Pulm Wstr Work Phone: [facility] 07-05-2024 09:46-0400 Body weight 83.46 kg Pulm Wstr Work Phone: [facility] 12-29-2023 15:10-0500 Body weight 84.82 kg Fifi Salcido MD Work Phone: [facility] 06-23-2023 14:45-0400 Body weight 84.23 kg Melvi Amaral MD Work Phone: [facility] 06-23-2023 14:45-0400 Diastolic blood pressure 70 mm[Hg] Melvi Amaral MD Work Phone: [facility] 06-23-2023 14:45-0400 Heart rate 72 /min Melvi Amaral MD Work Phone: [facility] 06-23-2023 14:45-0400 Respiratory rate 16 /min Melvi Amaral MD Work Phone: [facility] 06-23-2023 14:45-0400 Systolic blood pressure 122 mm[Hg] Melvi Amaral MD Work Phone: [facility] 11-25-2022 10:04-0500 Body weight 85.73 kg Fifi Salcido MD Work Phone: [facility] 11-25-2022 10:04-0500 Diastolic blood pressure 80 mm[Hg] Fifi Salcido MD Work Phone: [facility] 11-25-2022 10:04-0500 Heart rate 64 /min Fifi Salcido MD Work Phone: [facility] 11-25-2022 10:04-0500 Respiratory rate 17 /min Fifi Salcido MD Work Phone: [facility] 11-25-2022 10:04-0500 SaO2% (BldA) [Mass fraction] 95 % Fifi Salcido MD Work Phone: [facility] 11-25-2022 10:04-0500 Systolic blood pressure 122 mm[Hg] Fifi Salcido MD Work Phone: [facility] 07-26-2022 08:44-0400 Body height 165.6 cm Fifi Salcido MD Work Phone: [facility] 07-26-2022 08:44-0400 Body weight 83.01 kg Fifi Salcido MD Work Phone: [facility] 07-26-2022 08:44-0400 Heart rate 83 /min Fifi Salcido MD Work Phone: [facility] 07-26-2022 08:44-0400 Respiratory rate 12 /min Fifi Salcido MD Work Phone: [facility] 07-26-2022 08:44-0400 SaO2% (BldA) [Mass fraction] 96 % Fifi Salcido MD Work Phone: [facility] 07-26-2022 08:22-0400 Body height 165.6 cm Respiratory Wstr Work Phone: [facility] 07-26-2022 08:22-0400 Body weight 83.42 kg Respiratory Wstr Work Phone: [facility] 07-26-2022 08:22-0400 Heart rate 83 /min Respiratory Wstr Work Phone: [facility] 07-26-2022 08:22-0400 Respiratory rate 12 /min Respiratory Wstr Work Phone: [facility] 07-26-2022 08:22-0400 SaO2% (BldA) [Mass fraction] 96 % Respiratory Wstr Work Phone: [facility] 07-09-2022 15:43-0400 Body weight 83.01 kg Melvi Amaral MD Work Phone: [facility] 07-09-2022 15:43-0400 Diastolic blood pressure 72 mm[Hg] Melvi Amaral MD Work Phone: [facility] 07-09-2022 15:43-0400 Heart rate 88 /min Melvi Amaral MD Work Phone: [facility] 07-09-2022 15:43-0400 Respiratory rate 16 /min Melvi Amaral MD Work Phone: [facility] 07-09-2022 15:43-0400 Systolic blood pressure 118 mm[Hg] Melvi Amaral MD Work Phone: [facility] 06-17-2022 16:30-0400 Heart rate 66 /min Ezekiel Prater MD Work Phone: [facility] 06-17-2022 16:30-0400 Respiratory rate 16 /min Ezekiel Prater MD Work Phone: [facility] 06-17-2022 16:30-0400 SaO2% (BldA) [Mass fraction] 95 % Ezekiel Prater MD Work Phone: [facility] 06-17-2022 16:20-0400 Diastolic blood pressure 87 mm[Hg] Ezekiel Prater MD Work Phone: [facility] 06-17-2022 16:20-0400 Systolic blood pressure 134 mm[Hg] Ezekiel Prater MD Work Phone: [facility] 06-17-2022 14:47-0400 Body height 165.1 cm Ezekiel Prater MD Work Phone: [facility] 06-17-2022 14:47-0400 Body temperature 97.5 [degF] Ezekiel Prater MD Work Phone: [facility] 06-17-2022 14:47-0400 Body weight 83.92 kg Ezekiel Prater MD Work Phone: [facility] Encounters Encounter Date Encounter Type Care Provider Facility Start: 09-29-2025 ambulatory Melvi Amaral Facilit y:[facility] Start: 05-23-2025 End: 05-24-2025 Telephone encounter Melvi Amaral MD Work Phone: [facility] [place] Comment on above: Orders Start: 05-09-2025 End: 05-09-2025 Office outpatient visit 15 minutes Melvi Amaral MD Work Phone: [facility] [place] Comment on above: Dizziness (Primary D x); Syncope and collapse; Mild intermittent asthma, unspecified whether complicated (HCC) Start: 05-09-2025 End: 05-09-2025 ambulatory MELVI AMARAL Facility:[facility] Start: 10-12-2024 End: 10-12-2024 ambulatory Fifi Salcido MD Work Phone: Pulmonary Medicine Comment on above: Kentrell Bose Start: 10-07-2024 End: 10-07-2024 ambulatory CARLOS A HOLLAND Facility:[facility] Start: 10-07-2024 End: 10-07-2024 Subsequent hospital visit by physician Carlos A Holland MD Work Phone: Ambulatory Surgery Comment on above: Screen for colon can cer [Z12.11] Start: 09-21-2024 End: 02-14-2025 Telephone encounter Alie PRATHER General Surgery Start: 09-21-2024 End: 09-21-2024 ambulatory MELVI AMARAL Facility:[facility] Start: 09-21-2024 End: 09-21-2024 Patient encounter procedure Christina Drake APRN.CERTIFIED PHYSICIAN'S ASSISTANT Work Phone: General Surgery Comment on above: Screen for colon can cer (Primary Dx); History of colonic polyps Start: 09-10-2024 End: 09-10-2024 Refill Austyn Boo APRN.CERTIFIED PHYSICIAN'S ASSISTANT Work Phone: [facility] [place] Comment on above: Refill Request Start: 08-20-2024 End: 08-20-2024 ambulatory MELVI AMARAL Facility:[facility] Start: 08-13-2024 End: 08-13-2024 ambulatory MELVI AMARAL Facility:[facility] Start: 08-13-2024 End: 08-13-2024 Patient encounter procedure Melvi Amaral MD Work Phone: [facility] [place] Comment on above: Medicare annual well ness visit, subsequent (Primary Dx); Arthritis; Screening for depression; Encounter for screening examination for other mental health and behavioral disorders; Mixed hyperlipidemia; Acquired hypothyroidism; Screening for prostate cancer Start: 07-27-2024 End: 07-27-2024 Telephone encounter Fifi Salcido MD Work Phone: Pulmonary Medicine Comment on above: Medication Problem Start: 07-16-2024 End: 07-16-2024 Telephone encounter Melvi Amaral MD Work Phone: [facility] [place] Comment on above: due for appt Start: 07-05-2024 End: 07-05-2024 ambulatory Pulm [facility] Work Phone: PULM LAB [facility] Comment on above: Spirometry Start: 07-05-2024 End: 07-05-2024 Patient encounter procedure [facility] Work Phone: [facility] Comment on above: Mild persistent asth ma without complication (Primary Dx) Start: 06-23-2024 ambulatory Xuan Villalta [facility] Start: 06-23-2024 Patient encounter procedure Xuan High Pawan ABDULLAHI [facility] Comment on above: Population Health Na vigation Outreach (Soni Regalado PCSA) Start: 04-13-2024 ambulatory Polly Braunvirginiemerline [facility] Start: 04-13-2024 Patient encounter procedure Polly Dee Deemerline [facility]BDULLAH[facility] Comment on above: Population Health Na vigation Outreach (Soni AWV/HCC and care gaps ) Start: 12-29-2023 End: 12-29-2023 Patient encounter procedure Fifi Salcido MD Work Phone: Pulmonary Medicine Comment on above: Mild intermittent as thma without complication (Primary Dx); Current occasional smoker; Gastroesophageal reflux disease, unspecified whether esophagitis present Start: 12-26-2023 Refill Fifi Salcido MD Work Phone: Pulmonary Medicine Comment on above: Refill Request Start: 09-05-2023 Refill Austyn AGUILAR RN.CERTIFIED PHYSICIAN'S ASSISTANT Work Phone: [facility] [place] Comment on above: Refill Request Start: 06-23-2023 End: 06-23-2023 Patient encounter procedure Melvi Amaral MD Work Phone: [facility] [place] Comment on above: Acquired hypothyroid ism (Primary Dx); Mixed hyperlipidemia; Mild intermittent asthma without complication; Seasonal allergic rhinitis due to pollen; Arthritis Start: 05-26-2023 End: 05-26-2023 Patient encounter procedure Ronit Smith PA-C Work Phone: Pulmonary Medicine Comment on above: Mild intermittent as thma without complication (Primary Dx); Post-COVID syndrome Start: 05-05-2023 ambulatory Avani Roseanna Briggsoneida Luis [facility]ar[facility] Comment on above: Population Health Na vigation Outreach ([place] Care Gap) Start: 12-02-2022 Refill [facility] Provider Pulmonary Medicine Comment on above: Refill Request (saleem hutchinson ) Start: 11-25-2022 End: 11-25-2022 ambulatory Pul[facility] Work Phone: [facility] Comment on above: Spirometry Start: 11-25-2022 End: 11-25-2022 Patient encounter procedure [facility] Work Phone: [facility] [employer] Comment on above: Mild intermittent as thma without complication (Primary Dx) Start: 09-20-2022 Refill Melvi ventura MD Work Phone: [facility] [place] Comment on above: Refill Request Start: 07-26-2022 End: 07-26-2022 ambulatory Respiratory Therapist [facility] Work Phone: Pulmonary Medicine Comment on above: Spirometry Start: 07-26-2022 End: 07-26-2022 Patient encounter procedure Respiratory Therapist [facility] Work Phone: [facility] [employer] Comment on above: Mild persistent asth ma without complication (Primary Dx); Post-COVID syndrome; Palpitations Start: 07-22-2022 ambulatory Melvi ventura MD Work Phone: [facility] [place] Comment on above: Prendisone Results Start: 07-09-2022 End: 07-09-2022 Patient encounter procedure Melvi Amaral MD Work Phone: [facility] [place] Comment on above: Itching (Primary Dx) ; Rash; Neuropathy; Acquired hypothyroidism Start: 06-26-2022 Telephone encounter Loree RosenRn ) Kami PRITCHETT Colorectal Surgery Comment on above: Results Start: 06-24-2022 ambulatory Meg Montoya MD Work Phone: Colorectal Surgery Comment on above: Biopsy Test Result Start: 06-17-2022 End: 06-17-2022 Subsequent hospital visit by physician Ezekiel Prater MD Work Phone: Gastroenterology Comment on above: Polyp of colon, unsp ecified part of colon, unspecified type [K63.5] Start: 05-16-2022 Orders Only Meg Montoya MD Work Phone: Colorectal Surgery Comment on above: Polyp of colon, unsp ecified part of colon, unspecified type (Primary Dx) Start: 05-15-2022 End: 05-15-2022 ambulatory Melvi Amaral MD Work Phone: [facility] [place] Comment on above: COVID (Primary Dx) History of colonic p olyps Start: 05-15-2022 End: 05-15-2022 Telemedicine consultation with patient Melvi Amaral MD Work Phone: [facility] [place] Start: 05-15-2022 Telephone encounter Melvi bustillos MD Work Phone: [facility] [place] Comment on above: Medication Request ( antivirals ) Refill Request; Refi ll Request Start: 04-22-2022 Orders Only Fifi Salcido MD Work Phone: Res[facility] [place] Comment on above: Uncomplicated asthma , unspecified asthma severity, unspecified whether persistent (Primary Dx) Start: 03-30-2021 ambulatory Melvi ventura MD Work Phone: [facility] [place] Comment on above: RE: Medication Quest ion (Not Renewal) Start: 02-02-2021 End: 02-02-2021 ambulatory MELVI AMARAL [facility] Start: 01-12-2021 End: 01-12-[address] DEJA LAURA [facility] Procedures Date Procedure Procedure Detail Performing Clinician Start: 10-07-2024 Colonoscopy flx dx w /collj spec when pfrmd Christina Drake SERVER.CERTIFIED PHYSICIAN'S ASSISTANT Work Phone: Start: 10-07-2024 Colonoscopy Carlos A ulloa MD Work Phone: Start: 08-20-2024 Lipid 1996 panel - S keyanna or Plasma Austyn Rajeev SERVER.CERTIFIED PHYSICIAN'S ASSISTANT Work Phone: Start: 08-13-2024 Adult depression scr eening assessment Melvi Amaral MD Work Phone: Start: 07-05-2024 Nitric oxide gas determination Fifi Salcido MD Work Phone: Start: 06-27-2023 Lipid 1996 panel - S keyanna or Plasma Austyn Rajeev SERVER.CERTIFIED PHYSICIAN'S ASSISTANT Work Phone: Start: 11-25-2022 Nitric oxide gas determination Fifi Salcido MD Work Phone: Start: 07-26-2022 Nitric oxide gas determination Fifi Salcido MD Work Phone: Start: 07-26-2022 Brncdilat rspse spmt ry pre&post-brncdilat admn Fifi Salcido MD Work Phone: Start: 06-17-2022 Colonoscopy flx dx w /collj spec when pfrmd I Abelino Montoya MD Work Phone: Start: 06-17-2022 Colonoscopy Ezekiel bonilla MD Work Phone: Start: 02-14-2022 Adult depression scr eening assessment Fifi Salcido MD Work Phone: Start: 05-16-2021 Colonoscopy Fifi Salcido MD Work Phone: Plan of Treatment Date Care Activity Detail Author Start: 02-16-2032 Urine microalbumin profile [facility] Start: 10-07-2029 Screening for malign ant neoplasm of colon [facility] Start: 08-20-2029 Lipid panel Lipid Screening [facility] Start: 06-27-2028 Lipid 1996 panel - S keyanna or Plasma Lipid Screening [facility] Start: 06-27-2028 Lipid panel Lipid Screening [facility] Start: 08-20-2027 Diabetes Screening Diabetes Screenin g [facility] Start: 02-15-2027 LIPID SCREEN LIPID SCREEN [facility] Start: 06-27-2026 Diabetes Screening Diabetes Screenin g [facility] Start: 05-09-2026 Annual PCP Team Plastics Fabricator Or Welder carlos Disease Visit Annual PCP Team Chronic Disease Visit [facility] Start: 10-07-2025 Screening for malign ant neoplasm of colon [facility] Start: 08-13-2025 Abdominal aortic ane urysm screening Abdominal Aortic Aneurysm Screening [facility] Comment on above: Postponed from 01/11 (Declined at this time) Start: 08-13-2025 Annual PCP Team Plastics Fabricator Or Welder carlos Disease Visit Annual PCP Team Chronic Disease Visit [facility] Start: 08-13-2025 Anxiety Screening Anxiety Screening [facility] Start: 08-13-2025 Covid-19 Vaccine ( season) Covid-19 Vaccine () [facility] Comment on above: Postponed from 07/18 (Declined at this time) Start: 08-13-2025 Depression Screening Depression Scre ening [facility] Start: 08-13-2025 Pneumococcal Vaccine : 50+ (1 of 2 - PCV) Pneumococcal Vaccine: 50+ (1 of 2 - PCV) [facility] Comment on above: Postponed from 01/11 (Declined at this time) Start: 08-13-2025 Pneumococcal Vaccine : 65+ (1 of 2 - PCV) Pneumococcal Vaccine: 65+ (1 of 2 - PCV) [facility] Comment on above: Postponed from 01/11 (Declined at this time) Start: 08-13-2025 RSV Vaccine (1 - Ris k 60-74 years 1-dose series) RSV Vaccine (1 - Risk 60-74 years 1-dose series) [facility] Comment on above: Postponed from 01/11 (Declined at this time) Start: 08-13-2025 Screening for malign ant neoplasm of breast Mammogram Screening [facility] Comment on above: Postponed from 01/11 (Declined at this time) Start: 08-13-2025 Shingrix Vaccine (1 of 2) Delgado grix Vaccine (1 of 2) [facility] Comment on above: Postponed from 01/11 (Declined at this time) Start: 07-18-2025 Influenza vaccination C [facility] Start: 05-16-2025 Influenza vaccination Influenza Vacc ine (#1) [facility] Comment on above: Postponed from 07/18 (Declined at this time) Start: 02-15-2025 DIABETES SCREEN DIABETES SCREEN [facility] Start: 01-07-2025 End: 01-07-2025 Patient encounter procedure 01/07/2025 10:00 AM EST Office Visit Pulmonary Medicine [address] [place] [address] Zahraa Mason APRN.CERTIFIED PHYSICIAN'S ASSISTANT [address] [place] [address] 6 month f/u Pulmonary Medicine Comment on above: 6 month f/u Start: 01-06-2025 End: 01-06-2025 Patient encounter procedure 01/06/2025 9:30 AM EST Office Visit Pulmonary Medicine [address] [place] [address] Fifi Salcido MD [address] [place] [address] 6 month f/u Pulmonary Medicine Comment on above: 6 month f/u Start: 11-17-2024 Advance Directive Discussion Advance Directive Discussion [facility] Start: 11-17-2024 Medicare Advantage A nnual Wellness Visit Medicare Advantage Annual Wellness Visit [facility] Start: 10-07-2024 End: 10-07-2024 Patient encounter procedure 10/07/2024 2:00 PM EST Appointment Ambulatory Surgery [address] [place] [address] Carlos A Holland MD [address] [place] [address] Ambulatory Surgery Start: 08-13-2024 End: 11-12-2024 Comprehensive metabolic 2000 panel - Serum or Plasma COMPREHENSIVE METABOLIC PANEL Lab Routine Mixed hyperlipidemia Expected: 08/13/2024 (Approximate), Expires: 11/12/2024 [facility] Comment on above: Expected: 08/13/2024 (Approximate), Expires: 11/12/2024 Start: 08-13-2024 End: 11-12-2024 Lipid 1996 panel - Serum or Plasma LIPID PANEL BASIC Lab Routine Mixed hyperlipidemia Expected: 08/13/2024 (Approximate), Expires: 11/12/2024 [facility] Comment on above: Expected: 08/13/2024 (Approximate), Expires: 11/12/2024 Start: 08-13-2024 End: 11-12-2024 PSA/PROSTATE SPECIFIC ANTIGEN SCREENING PSA/PROSTATE SPECIFIC ANTIGEN SCREENING Lab Routine Screening for prostate cancer Expected: 08/13/2024, Expires: 11/12/2024 [facility] Comment on above: Expected: 08/13/2024 , Expires: 11/12/2024 Start: 08-13-2024 End: 11-12-2024 Thyrotropin [Units/volume] in Serum or Plasma THYROID STIMULATING HORMONE Lab Routine Acquired hypothyroidism Expected: 08/13/2024 (Approximate), Expires: 11/12/2024 [facility] Work Phone: Comment on above: Expected: 08/13/2024 (Approximate), Expires: 11/12/2024 Start: 08-13-2024 End: 08-13-2024 Patient encounter procedure 08/13/2024 8:00 AM EDT Office Visit [facility] [address] [place] [id number] Melvi Amaral MD [address] [place] [id number] Medicare Wellness [facility] Comment on above: Medicare Wellness Start: 07-18-2024 Covid-19 Vaccine ( season) Covid-19 Vaccine ( season) [facility] Start: 07-18-2024 Influenza vaccination C [facility] Start: 07-05-2024 End: 07-05-2024 Patient encounter procedure 07/05/2024 10:00 AM EDT Office Visit Pulmonary Medicine [address] [place] [id number] Fifi Salcido MD [address] [place] [id number] 6 month follow up Pulmonary Medicine Comment on above: 6 month follow up Start: 07-05-2024 End: 07-05-2024 Follow-up encounter 07/05/2024 9:45 AM EDT Procedure PULM LAB [facility] [address] [place] [address] Wstr, Pulm Lab [facility] [address] [place] [address] 6 month follow up PULM LAB [facility] Comment on above: 6 month follow up Start: 06-23-2024 ANNUAL PCP TEAM CATERING ASSISTANT CARLOS DISEASE VISIT ANNUAL PCP TEAM CHRONIC DISEASE VISIT [facility] Start: 11-17-2023 Advance Directive Discussion Advance Directive Discussion [facility] Start: 11-17-2023 Behavioral Health Screening Behavioral Health Screening [facility] Start: 11-17-2023 Depression Assessment Depression Ass essment [facility] Start: 08-05-2023 PROSTATE CANCER SCRE ENING DISCUSSION PROSTATE CANCER SCREENING DISCUSSION [facility] Start: 08-05-2023 Prostate specific an tigen measurement Prostate Cancer Screening Discussion [facility] Start: 07-18-2023 Covid-19 Vaccine ( season) Covid-19 Vaccine () [facility] Start: 07-18-2023 Influenza vaccination C [facility] Start: 07-09-2023 ANNUAL PCP TEAM CATERING ASSISTANT CARLOS DISEASE VISIT ANNUAL PCP TEAM CHRONIC DISEASE VISIT [facility] Start: 06-23-2023 End: 08-23-2023 CBC W Auto Differential panel - Blood CBC + DIFF Lab Routine Acquired hypothyroidism Arthritis Expected: 06/23/2023 (Approximate), Expires: 08/23/2023 [facility] Work Phone: Comment on above: Expected: 06/23/2023 (Approximate), Expires: 08/23/2023 Start: 06-23-2023 End: 08-23-2023 Comprehensive metabolic 2000 panel - Serum or Plasma COMP METABOLIC PANEL Lab Routine Mixed hyperlipidemia Expected: 06/23/2023 (Approximate), Expires: 08/23/2023 [facility] Work Phone: Comment on above: Expected: 06/23/2023 (Approximate), Expires: 08/23/2023 Start: 06-23-2023 End: 08-23-2023 Lipid 1996 panel - Serum or Plasma LIPID PANEL BASIC Lab Routine Mixed hyperlipidemia Expected: 06/23/2023 (Approximate), Expires: 08/23/2023 [facility] Work Phone: Comment on above: Expected: 06/23/2023 (Approximate), Expires: 08/23/2023 Start: 06-23-2023 End: 08-23-2023 Thyrotropin [Units/volume] in Serum or Plasma TSH BLD Lab Routine Acquired hypothyroidism Expected: 06/23/2023 (Approximate), Expires: 08/23/2023 [facility] Work Phone: Comment on above: Expected: 06/23/2023 (Approximate), Expires: 08/23/2023 Start: 06-17-2023 Colonoscopy COLONOSCOPY [facility] Start: 06-17-2023 COLORECTAL CANCER SCREENING COLORECTAL CANCER SCREENING [facility] Start: 06-17-2023 Screening for malign ant neoplasm of colon [facility] Start: 05-15-2023 ANNUAL PCP TEAM CATERING ASSISTANT CARLOS DISEASE VISIT ANNUAL PCP TEAM CHRONIC DISEASE VISIT [facility] Start: 02-15-2023 ANNUAL PCP TEAM CATERING ASSISTANT CARLOS DISEASE VISIT ANNUAL PCP TEAM CHRONIC DISEASE VISIT [facility] Start: 02-14-2023 Adult depression scr eening assessment DEPRESSION SCREENING [facility] Start: 11-17-2022 ADVANCE DIRECTIVE DISCUSSION ADVANCE DIRECTIVE DISCUSSION [facility] Start: 11-17-2022 DEPRESSION ASSESSMENT DEPRESSION ASS ESSMENT [facility] Start: 07-18-2022 Influenza vaccination INFLUENZA (#1) [facility] Start: 06-18-2022 COLORECTAL CANCER SCREENING COLORECTAL CANCER SCREENING [facility] Start: 05-16-2022 Colonoscopy COLONOSCOPY [facility] Start: 02-19-2022 COLORECTAL CANCER SCREENING COLORECTAL CANCER SCREENING [facility] Start: 02-19-2022 FECAL OCCULT BLOOD FECAL OCCULT BLOO D [facility] Start: 02-19-2022 Screening for malign ant neoplasm of colon Fecal Occult Blood [facility] Start: 12-21-2021 COVID-19 VACCINE (4 - Booster for Pfizer series) COVID-19 VACCINE (4 - Booster for Pfizer series) [facility] Start: 11-17-2021 DEPRESSION ASSESSMENT DEPRESSION ASS ESSMENT [facility] Start: 10-15-2021 COVID-19 VACCINE (4 - Booster for Pfizer series) COVID-19 VACCINE (4 - Booster for Pfizer series) [facility] Start: 10-15-2021 COVID-19 VACCINE (4 - Pfizer series) COVID-19 VACCINE (4 - Pfizer series) [facility] Start: 2015 RSV Vaccine (1 - 1-d ose 60+ series) RSV Vaccine (1 - 1-dose 60+ series) [facility] Start: 2005 SHINGRIX VACCINE (1 of 2) DELGADO GRIX VACCINE (1 of 2) [facility] Start: 2000 COLOGUARD (FIT-DNA) COLOGUARD (FIT-D NA) [facility] Start: [address] COLONOGRAPHY [facility] Start: 2000 Screening for malign ant neoplasm of colon [facility] Start: 2000 SIGMOIDOSCOPY SIGMOIDOSCOPY [facility] Start: 1995 Mammography [facility] Start: 1995 Screening for malign ant neoplasm of breast Mammogram Screening [facility] Start: 1973 Anxiety Screening Anxiety Screening [facility] Start: 1973 Depression Screening Depression Scre ening [facility] Start: 1961 Pneumococcal Vaccine : 65+ (1 - PCV) Pneumococcal Vaccine: 65+ (1 - PCV) [facility] Start: 1961 Pneumococcal Vaccine : 65+ (1 of 2 - PCV) Pneumococcal Vaccine: 65+ (1 of 2 - PCV) [facility] Start: 1961 PNEUMOCOCCAL: 65+ (1 - PCV) PNEUMOCOCCAL: 65+ (1 - PCV) [facility] Start: 1955 ABDOMINAL AORTIC ANE URYSM SCREENING ABDOMINAL AORTIC ANEURYSM SCREENING [facility] Start: 1955 Abdominal aortic ane urysm screening Abdominal Aortic Aneurysm Screening [facility] End: 05-16-2023 COLONOSCOPY DIAGNOSTIC COLONOSCOPY DIAGNOSTIC Endoscopy Routine Polyp of colon, unspecified part of colon, unspecified type 1 Occurrences starting 05/16/2022 until 05/16/2023 [facility] Work Phone: Comment on above: 1 Occurrences starti ng 05/16/2022 until 05/16/2023 ECG COMPLETE ECG COMPLETE ECG Routine Dizziness Ordered: 05/09/2025 [facility] Work Phone: Comment on above: Ordered: 05/09/2025 End: 07-26-2023 Echocardiography ECHO Cardiology Routine Palpitations 1 Occurrences starting 07/26/2022 until 07/26/2023 [facility] Work Phone: Comment on above: 1 Occurrences starti ng 07/26/2022 until 07/26/2023 End: 05-22-2023 NITRIC OXIDE, EXHALED NITRIC OXIDE, EXHALED PFT Routine Uncomplicated asthma, unspecified asthma severity, unspecified whether persistent 1 Occurrences starting 04/23/2022 until 05/22/2023 [facility] Work Phone: Comment on above: 1 Occurrences starti ng 04/23/2022 until 05/22/2023 End: 08-25-2023 NITRIC OXIDE, EXHALED NITRIC OXIDE, EXHALED PFT Routine Mild persistent asthma without complication 1 Occurrences starting 07/26/2022 until 08/25/2023 [facility] Work Phone: Comment on above: 1 Occurrences starti ng 07/26/2022 until 08/25/2023 End: 01-27-2025 NITRIC OXIDE, EXHALED NITRIC OXIDE, EXHALED PFT Routine 1 Occurrences starting 12/29/2023 until 01/27/2025 [facility] Work Phone: Comment on above: 1 Occurrences starti ng 12/29/2023 until 01/27/2025 OUTSIDE VENDOR CARDI AC OUTPATIENT EXTENDED RHYTHM RECORDING (WITHOUT TELEMETRY) OUTSIDE VENDOR CARDIAC OUTPATIENT EXTENDED RHYTHM RECORDING (WITHOUT TELEMETRY) Holter Routine Syncope and collapse Ordered: 05/24/2025 [facility] Work Phone: Comment on above: Ordered: 05/24/2025 End: 09-21-2025 Screening colonoscopy COLONOSCOPY SCREENING Endoscopy Routine Screen for colon cancer History of colonic polyps 1 Occurrences starting 09/21/2024 until 09/21/2025 [facility] Work Phone: Comment on above: 1 Occurrences starti ng 09/21/2024 until 09/21/2025 End: 05-22-2023 SPIROMETRY - BASELINE AND POST DILATOR SPIROMETRY - BASELINE AND POST DILATOR PFT Routine Uncomplicated asthma, unspecified asthma severity, unspecified whether persistent 1 Occurrences starting 04/23/2022 until 05/22/2023 [facility] Work Phone: Comment on above: 1 Occurrences starti ng 04/23/2022 until 05/22/2023 SPIROMETRY - BASELIN E AND POST DILATOR SPIROMETRY - BASELINE AND POST DILATOR PFT Routine Uncomplicated asthma, unspecified asthma severity, unspecified whether persistent 07/26/2022 8:26 AM EDT [facility] Work Phone: SURGICAL PATHOLOGY [facility] Work Phone: Comment on above: Release Upon Orderin g for 1 Occurrences starting 06/17/2022, 1 completed [facility] Immunizations Immunization Date Immunization Notes Care Provider Fa [facility] 02-15-2022 tetanus toxoid, redu stephany diphtheria toxoid, and acellular pertussis vaccine, adsorbed Fifi Salcido MD Work Phone: [facility] 08-30-2021 influenza, high-dose , quadrivalent vaccine (FLUZONE HIGH DOSE QUADRIVALENT) Fifi Salcido MD Work Phone: [facility] 08-30-2021 influenza virus vacc ine, unspecified formulation Austyn Boo SERVER.CERTIFIED PHYSICIAN'S ASSISTANT Work Phone: [facility] 10-17-2011 influenza virus vacc ine, unspecified formulation Fifi Salcido MD Work Phone: [facility] 06-06-2007 diphtheria, tetanus toxoids and acellular pertussis vaccine Fifi Salcido MD Work Phone: [facility] Payers Date Payer Category Payer Self-pay 2021 Medicare (Managed Care) SONI DAVIS HMO [id number] 2021 Unknown ANTHEM BLUE CROS S AND BLUE SHIELD ANTHEM MEDIBLUE HMO [id number] 2021-Present [phone] [address] [place] [address] O [id number] 2021 Unknown [id number] 2021 Medicare [id number] 2018 Private Health Insurance [employer]ITIL[employer] High [facility] [id number] 2018-2022 [address] [place] [address] O [id number] 1955 Unknown [id number] Medicare [id number] Unknown [id number] Social History Date Type Detail Facility Start: 05-16-2021 End: 07-26-2022 Tobacco smoking status NHIS Light tobacco smoker [facility] End: 11-17-2022 History of tobacco use Smoker [facility] Start: 05-16-2021 End: 07-05-2024 Tobacco use and exposure Smokeless tobacco non-user [facility] Start: 10-11-2020 End: 02-15-2022 Alcohol intake Current drinker of alcohol (finding) [facility] Start: 02-14-2022 History SDOH Alcohol Frequency 98 [facility] Start: 05-16-2021 History SDOH Alcohol Comment Beer 3 times a week [facility] Start: 02-14-2022 History SDOH Physica l Activity DPW 7 [facility] Start: 02-14-2022 History SDOH Stress 2 [facility] Start: 02-14-2022 History SDOH Housing Places Lived 1 [facility] Start: 05-15-2021 End: 07-26-2022 Tobacco Comment Infrequent smoker of cigarette (3 or less per month), marijuana couple hits per week. [facility] Start: 1955 Sex Assigned At Not on file C [facility] Start: 04-12-2022 End: 07-09-2022 Exposure to SARS-CoV-2 (event) Not sure [facility] Start: 06-17-2022 End: 05-09-2025 Alcohol intake Ex-drinker (finding) [facility] End: 11-17-2022 History of tobacco use Cigarette Smoker [facility] Start: 1955 Sex Assigned At Male C [facility] Start: 02-03-2018 End: 11-25-2022 Tobacco smoking status NHIS Ex-smoker [facility] Work Phone: Start: 02-14-2022 End: 05-26-2023 History of Social function [facility] Start: 02-14-2022 End: 05-26-2023 Social connection and isolation panel [facility] In a typical week, h ow many times do you talk on the telephone with family, friends, or neighbors? Patient refused [facility] Are you now , , , , never or living with a partner? Refused [facility] Do you feel stress - tense, restless, nervous, or anxious, or unable to sleep at night because your mind is troubled all the time - these days [OSQ] Only a little [facility] (I/We) worried whejesse er (my/our) food would run out before (I/we) got money to buy more. DK or Refused [facility] In the past 12 month s, was there a time when you were not able to pay the mortgage or rent on time? No [facility] Start: 07-07-2022 Gender identity Identifies as male gender (finding) [facility] Start: 07-07-2022 Sexual orientation Choose not to dis close [facility] Start: 12-29-2023 End: 07-05-2024 Tobacco smoking status NHIS Occasional tobacco smoker [facility] Work Phone: Start: 01-24-2012 Tobacco Comment smoke about 10 cigs per day [facility] Do you belong to any clubs or organizations such as alevism groups, [employer], [employer] or athletic groups, or school groups? Yes [facility] Are you now , , , , never or living with a partner? [facility] Do you feel stress - tense, restless, nervous, or anxious, or unable to sleep at night because your mind is troubled all the time - these days [OSQ] Not at all [facility] Functional Status Date Assessment Result Facility 11-22-2014 Are you deaf, or do you have serious difficulty hearing No 11/22/2014 10:09 AM Christy Schafer LPN No [facility] 11-22-2014 Are you blind, or do you have serious difficulty seeing, even when wearing glasses No 11/22/2014 10:09 AM Christy Schafer LPN No [facility] 11-22-2014 Do you have serious difficulty walking or climbing stairs No 11/22/2014 10:09 AM Christy Schafer LPN No [facility] 11-22-2014 Do you have difficul ty dressing or bathing No 11/22/2014 10:09 AM Christy Schafer LPN No [facility] 11-22-2014 Because of a physica l, mental, or emotional condition, do you have difficulty doing errands alone such as visiting a physician's office or shopping No 11/22/2014 10:09 AM Christy Schafer LPN No [facility] Mental Status Date Assessment Result Facility 11-22-2014 Because of a physica l, mental, or emotional condition, do you have serious difficulty concentrating, remembering, or making decisions No 11/22/2014 10:09 AM Christy Schafer LPN No [facility] Clinical Notes 03-30-2021 to 05-24-2025 Telephone Encounter - Evelin Gregg MA - 05/24/2025 3:56 PM EDTTelephone Encounter - Evelin Gregg MA - 05/24/2025 3:56 PM Melvi Montes MD - 05/09/2025 12:40 PM EDT Note Date & Type Note Facility 05-24-2025 Telephone encounter Note Pt notified. Evelin Gregg MA [facility] 05-24-2025 Miscellaneous Notes Pt notified. Evelin Gregg MA Please let the patient know that I have ordered. Should be mailed to him today or tomorrow. Austyn Boo APRN.CERTIFIED PHYSICIAN'S ASSISTANT Pt is calling back today and would like some type of response to message below. Pt would like Zio ordered. Please call pt when provider has reviewed message. Anny Dobson LPN Pt reports he had OV with pcp on 05/09/25 for near syncope. Pt reports it was discussed at the appt to have pt use Zio monitor if pt continued to have episodes and if they were more frequent. (Discussed the possibility of using a Zio monitor for extended cardiac monitoring if episodes become more frequent (more than once a week) or severe). Pt reports he would like to try the Zio Monitor. Advised pt provider is out of the office until 05/26 and Tracer Bullet Section Supervisor may review. Pt reports he is out of town at this time. Please call pt with provider message. Anny Dobson LPN documented in this encounter [facility] 05-24-2025 Telephone encounter Note Please let the patient know that I have ordered. Should be mailed to him today or tomorrow. Austyn Boo APRN.CERTIFIED PHYSICIAN'S ASSISTANT [facility] 05-24-2025 Telephone encounter Note Pt is calling back today and would like some type of response to message below. Pt would like Zio ordered. Please call pt when provider has reviewed message. Anny Dobson LPN [facility] 05-23-2025 Telephone encounter Note Pt reports he had OV with pcp on 05/09/25 for near syncope. Pt reports it was discussed at the appt to have pt use Zio monitor if pt continued to have episodes and if they were more frequent. (Discussed the possibility of using a Zio monitor for extended cardiac monitoring if episodes become more frequent (more than once a week) or severe). Pt reports he would like to try the Zio Monitor. Advised pt provider is out of the office until 05/26 and [employer] Section Supervisor may review. Pt reports he is out of town at this time. Please call pt with provider message. Anny Dobson LPN [facility] 05-23-2025 Note HNO ID: [id number] Author: LUZ SMITH MD Service: ? Author Type: Physician Type: Procedures Filed: 07/04/2025 13:02 Note Text: Patient Name: Daiana Abdalla : 1955 Ordering Provider: Austyn Boo Indication: R55 Syncope and collapse Type of Monitor: Extended Monitoring-Zio Patch Enrollment Dates: 05/27/2025-06/09/2025 IRHYTHM FINDINGS: Patient had a min HR of 47 bpm, max HR of 273 bpm, and avg HR of 77 bpm. Predominant underlying rhythm was Sinus Rhythm. 5 Ventricular Tachycardia runs occurred, the run with the fastest interval lasting 5 beats with a max rate of 273 bpm, the longest lasting 10 beats with an avg rate of 118 bpm. 15 Supraventricular Tachycardia runs occurred, the run with the fastest interval lasting 4 beats with a max rate of 200 bpm, the longest lasting 16 beats with an avg rate of 102 bpm. Ventricular Tachycardia was detected within +/- 45 seconds of symptomatic patient event(s). Isolated SVEs were rare (<1.0%), SVE Couplets were rare (<1.0%), and SVE Triplets were rare (<1.0%). Isolated VEs were rare (<1.0%, 60641), VE Couplets were rare (<1.0%, 71), and VE Triplets were rare (<1.0%, 10). Ventricular Bigeminy and Trigeminy were present. [facility] 05-09-2025 History of Present illness Narrative Chief Complaint Patient presents with: Syncope HPI Daiana Abdalla is a 70 year old adult who presents here today for syncope. Pt states that he has had multiple episodes where he has felt like he was going to pass out, but has not passed out. He states that he feels something coming over him like he is moving to a different level of consciousness. He stated he looked up sx to make sure he was not having a mini stroke. He has not been evaluated at ER for this. Denies any n/v, Shortness of Breath. He does have some dizziness with it. He states he does get a little fluttering of the heart at times. It seems to occur when he is active, one time he was walking in a store. He has had an episode while driving. He states that these episodes only last 2-5 seconds. No headaches. Vision gets blurry. Denies any changes to his medication since this started other than no longer singular or Breztri inhaler. Nothing he can think of that would trigger these episodes. Near-Syncope: - Intermittent episodes of near-syncope, described as feeling like the body is crashing or shutting down, lasting a few seconds. - Episodes occur sporadically; none in the past week, but had some a week ago. - Occur in various settings, including while driving and at the store. - No specific triggers identified; denies correlation with exercise. - Denies associated dyspnea or fatigue. - Denies family history of cardiac issues, except for father who had a mitral valve issue at age 87. - Denies excessive alcohol consumption; quit drinking 6 months ago, with only occasional beer since. - Consumes caffeine regularly; last episode occurred during a drive to [place], [place], when he ensured he was caffeinated. - Questions if lack of sleep could be a contributing factor. - Daughter has hypoglycemia; Daiana wonders if episodes could be related, but denies being diabetic. 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 - Recent EKG performed. - Echo performed a couple of years ago by Dr. Salcido, supervisor malted milk, due to suspected COVID-19. - Researches mini-strokes (TIA) but does not believe symptoms fit. Asthma: - Discontinued asthma medications due to psychological side effects. - Reports improvement in asthma symptoms; willing to resume medication if symptoms become chronic again. Past medical history, appointments, medications, allergies reviewed. Previous Medical History PAST MEDICAL HISTORY Diagnosis Date Allergic rhinitis due to allergen 10/2019 Remote allergy shots, over 25 years ago. Arthritis Asthma (HCC) 10/2019 Childhood. Cancer (HCC) Skin GERD (gastroesophageal reflux disease) Neuropathy Feet. Other and unspecified hyperlipidemia Unspecified hypothyroidism Previous Surgical History PAST SURGICAL HISTORY Procedure Laterality Date HERNIA REPAIR HX RPR UMBILICAL HRNA 5 YRS/> REDUCIBLE Family History FAMILY HISTORY Problem Relation Age of Onset Prostate Cancer Father Asthma Father Severe. Thyroid Brother Patient Allergies ALLERGIES Allergen Reactions Augmentin [Amoxicil* Rash Keflex [Cephalexin] Hives Prednisone Intolerance Dizziness, tachycardia Current Medications Current Outpatient Medications on File Prior to Visit Medication Sig oopihbdfvi-rbvpcdkn-oioaqqoguq (BREZTRI) 160-9-4.8 mcg/actuation HFA aerosol inhaler Inhale 2 Puffs as instructed two times a day. levothyroxine (LEVOXYL) 175 mcg tablet Take 1 tablet by mouth once daily. Take on empty stomach. For Thyroid. meloxicam (MOBIC) 15 mg tablet Take 1 tablet by mouth once daily. Take with food. albuterol HFA (PROVENTIL HFA, VENTOLIN HFA) 90 mcg/actuation inhaler Inhale 2 Puffs as instructed every 4 hours as needed. montelukast (SINGULAIR) 10 mg tablet Take 1 tablet by mouth daily at bedtime. fexofenadine HCl (CELY ALLERGY ORAL) Take 1 tablet by mouth as needed. No current facility-administered medications on file prior to visit. Social History Social History Tobacco Use Smoking status: Some Days Current packs/day: 0.00 Types: Cigarettes Last attempt to quit: 2022 Years since quittin.4 Smokeless tobacco: Never Tobacco comments: Infrequent smoker of cigarette (3 or less per month), marijuana couple hits per week. Vaping Use Vaping status: Never Used Substance Use Topics Alcohol use: Not Currently Comment: Beer 3 times a week Drug use: Yes Frequency: 2.0 times per week Types: Marijuana Comment: week EXAM: BP 130/80 Pulse 75 Resp 16 Wt 81.2 kg (179 lb 0.2 oz) BMI 29.79 kg/m General Appearance: Well appearing, alert, in no acute distress, well-hydrated, well nourished.. Neck: Supple, no adenopathy; thyroid symmetric, normal size, no bruits. Lungs: Lungs clear to auscultation. No wheezing, rhonchi, rales.. Heart: RRR without murmur, gallop, or rubs. No ectopy. Health Maintenance List Advance Directive Discussion due on 11/17/2024 Medicare Advantage Annual Wellness Visit due on 11/17/2024 Abdominal Aortic Aneurysm Screening due on 08/13/2025 RSV Vaccine(1 - Risk 60-74 years 1-dose series) due on 08/13/2025 Shingrix Vaccine(1 of 2) due on 08/13/2025 Covid-19 Vaccine( - season) due on 08/13/2025 Pneumococcal Vaccine: 50+(1 of 2 - PCV) due on 08/13/2025 Influenza Vaccine(Season Ended) due on 07/18/2025 Annual PCP Team Chronic Disease Visit due on 08/13/2025 Depression Screening due on 08/13/2025 Anxiety Screening due on 08/13/2025 Diabetes Screening due on 08/20/2027 Lipid Screening due on 08/20/2029 Lipid Screening due on 08/20/2029 Colorectal Cancer Screening due on 10/07/2029 DTaP,Tdap,Td Vaccine(3 - Td or Tdap) due on 02/16/2032 Bone Density Screening Completed Hepatitis C Screening Completed Data reviewed EKG normal 1. Dizziness (R42) 2. Syncope and collapse (R55) - Episodes of transient dizziness and near-syncope lasting a few seconds, occurring sporadically over the past few weeks; no episodes in the past week. - Differential diagnoses include cardiac arrhythmias and transient ischemic attacks (TIAs). - EKG performed today was normal, ruling out immediate arrhythmias during the test period. - Discussed the possibility of using a Zio monitor for extended cardiac monitoring if episodes become more frequent (more than once a week) or severe. - Advised patient to reduce caffeine intake, increase hydration, and improve sleep quality to see if these lifestyle modifications reduce the frequency of episodes. - Patient to keep a log of episodes, noting frequency, duration, and any associated symptoms. - Follow-up if episodes increase in frequency or severity. 3. Mild intermittent asthma, unspecified whether complicated (HCC) (J45.20) - Patient has discontinued asthma medications due to adverse psychological effects; reports improvement in asthma symptoms. - No current shortness of breath or exercise intolerance reported. - Will monitor asthma symptoms; patient agrees to resume medication if symptoms worsen. I agree with the Chief Complaint, ROS, and Past Histories independently gathered by the clinical ict support engineer and the remaining scribed note accurately describes my personal service to the patient. Recording using ambient [employer] software for draft documentation of the visit was discussed with the patient/authorized shipping services sales representative; all questions welcomed and answered. Patient/authorized shipping services sales representative agreed to proceed Medical Decision Making: Problems: Moderate: New problem with uncertain prognosis Data: Unique test result(s) reviewed: 1 Unique test(s) ordered: 1 Risk: Low: Low risk from testing/treatment Medical Decision Making Level: 3 - Low Follow up prn Melvi Amaral MD The documentation for this note was completed by Evelin Gregg MA acting as scribe for Melvi Amaral MD. May 09, 2025 12:46 PM. Evelin Gregg MA documented in this encounter [facility] 05-09-2025 Note HNO ID: [id number] Author: MELVI AMARAL MD Service: ? Author Type: Physician Type: Progress Notes Filed: 05/09/2025 13:25 Note Text: Chief Complaint Patient presents with: Syncope HPI Daiana Loida Lianne is a 70 year old adult who presents here today for syncope. Pt states that he has had multiple episodes where he has felt like he was going to pass out, but has not passed out. He states that he feels something coming over him like he is moving to a different level of consciousness. He stated he looked up sx to make sure he was not having a mini stroke. He has not been evaluated at ER for this. Denies any n/v, Shortness of Breath. He does have some dizziness with it. He states he does get a little fluttering of the heart at times. It seems to occur when he is active, one time he was walking in a store. He has had an episode while driving. He states that these episodes only last 2-5 seconds. No headaches. Vision gets blurry. Denies any changes to his medication since this started other than no longer singular or Breztri inhaler. Nothing he can think of that would trigger these episodes. Near-Syncope: - Intermittent episodes of near-syncope, described as feeling like the body is crashing or shutting down, lasting a few seconds. - Episodes occur sporadically; none in the past week, but had some a week ago. - Occur in various settings, including while driving and at the store. - No specific triggers identified; denies correlation with exercise. - Denies associated dyspnea or fatigue. - Denies family history of cardiac issues, except for father who had a mitral valve issue at age 87. - Denies excessive alcohol consumption; quit drinking 6 months ago, with only occasional beer since. - Consumes caffeine regularly; last episode occurred during a drive to [place], [place], when he ensured he was caffeinated. - Questions if lack of sleep could be a contributing factor. - Daughter has hypoglycemia; Daiana wonders if episodes could be related, but denies being diabetic. 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 - Recent EKG performed. - Echo performed a couple of years ago by Dr. Salcido, supervisor [employer], due to suspected COVID-19. - Researches mini-strokes (TIA) but does not believe symptoms fit. Asthma: - Discontinued asthma medications due to psychological side effects. - Reports improvement in asthma symptoms; willing to resume medication if symptoms become chronic again. Past medical history, appointments, medications, allergies reviewed. Previous Medical History PAST MEDICAL HISTORY Diagnosis Date Allergic rhinitis due to allergen 10/2019 Remote allergy shots, over 25 years ago. Arthritis Asthma (HCC) 10/2019 Childhood. Cancer ([facility]) Skin GERD (gastroesophageal reflux disease) Neuropathy Feet. Other and unspecified hyperlipidemia Unspecified hypothyroidism Previous Surgical History PAST SURGICAL HISTORY Procedure Laterality Date HERNIA REPAIR HX RPR UMBILICAL HRNA 5 YRS/> REDUCIBLE Family History FAMILY HISTORY Problem Relation Age of Onset Prostate Cancer Father Asthma Father Severe. Thyroid Brother Patient Allergies ALLERGIES Allergen Reactions Augmentin [Amoxicil* Rash Keflex [Cephalexin] Hives Prednisone Intolerance Dizziness, tachycardia Current Medications Current Outpatient Medications on File Prior to Visit Medication Sig bhwevixmqc-gbvoqpwt-freucfqstr (BREZTRI) 160-9-4.8 mcg/actuation HFA aerosol inhaler Inhale 2 Puffs as instructed two times a day. levothyroxine (LEVOXYL) 175 mcg tablet Take 1 tablet by mouth once daily. Take on empty stomach. For Thyroid. meloxicam (MOBIC) 15 mg tablet Take 1 tablet by mouth once daily. Take with food. albuterol HFA (PROVENTIL HFA, VENTOLIN HFA) 90 mcg/actuation inhaler Inhale 2 Puffs as instructed every 4 hours as needed. montelukast (SINGULAIR) 10 mg tablet Take 1 tablet by mouth daily at bedtime. fexofenadine HCl (CELY ALLERGY ORAL) Take 1 tablet by mouth as needed. No current facility-administered medications on file prior to visit. Social History Social History Tobacco Use Smoking status: Some Days Current packs/day: 0.00 Types: Cigarettes Last attempt to quit: 2022 Years since quittin.4 Smokeless tobacco: Never Tobacco comments: Infrequent smoker of cigarette (3 or less per month), marijuana couple hits per week. Vaping Use Vaping status: Never Used Substance Use Topics Alcohol use: Not Currently Comment: Beer 3 times a week Drug use: Yes Frequency: 2.0 times per week Types: Marijuana Comment: week EXAM: BP 130/80 Pulse 75 Resp 16 Wt 81.2 kg (179 lb 0.2 oz) BMI 29.79 kg/m? General Appearance: Well appearing, alert, in no acute distress, well-hydrated, well nourished.. Neck: Supple, no adenopathy; thyroid symmetric, normal size, no bruits. Lungs: Lungs clear (more content not included)... [facility] 10-07-2024 History and physical note HISTORY AND PHYSICAL Daiana Abdalla : 1955 REFERRING PHYSICIAN: No referring provider defined for this encounter. CHIEF COMPLAINT: Patient presents with: Consult: Colonoscopy consultation. HPI: Daiana is a 69 year old adult referred for endoscopy. Daiana notes due for screening colonoscopy- hx of polyps. Daiana denies abdominal pain.. Daiana denies diarrhea. Daiana denies constipation. Daiana denies a change in bowel habits. Daiana denies melena. Daiana denies bright red blood per rectum. Daiana denies hemorrhoids. Daiana denies heartburn. Daiana denies dysphagia. Daiana denies a history of ulcers/ peptic ulcer disease. Daiana denies family history of colon issues. Daiana has undergone prior endoscopy. Colonoscopy 04/[address] Melara at [facility]. Sedation:Midazolam 3 mg IV, Fentanyl 50 micrograms IV, Diphenhydramine 50 mg IV Impression: - Non-bleeding internal hemorrhoids. - Diverticulosis in the sigmoid colon. - Nodular and pseudopolypoid mucosa in the cecum. Biopsied. CONVERTED FINAL DIAGNOSIS Colon, thickened cecal fold, biopsy (A) - Sessile serrated polyp. Colonoscopy with 06/[address] Prater at [facility]. Sedation: Midazolam 4 mg IV, Fentanyl 75 micrograms IV Impression: - Preparation of the colon was fair. - One 15 mm polyp in the cecum, removed with mucosal resection. Resected and retrieved. Clip was placed. - The examination was otherwise normal. - Mucosal resection was performed. Resection and retrieval were complete. FINAL DIAGNOSIS A. Cecal polyp, biopsy: - Sessile serrated polyp. CAYETANO/lakesha 06/19/2022 Repeat colonoscopy in 6 mos. CURRENT MEDICATIONS Current Outpatient Medications Medication Sig levothyroxine (LEVOXYL) 175 mcg tablet Take 1 tablet by mouth once daily. Take on empty stomach. For Thyroid. meloxicam (MOBIC) 15 mg tablet Take 1 tablet by mouth once daily. Take with food. albuterol HFA (PROVENTIL HFA, VENTOLIN HFA) 90 mcg/actuation inhaler Inhale 2 Puffs as instructed every 4 hours as needed. wqlfaqvuzsj-wycecluqo-hwzpwyzn (TRELEGY ELLIPTA) 200-62.5-25 mcg inhalation powder Inhale 1 Puff as instructed once daily. montelukast (SINGULAIR) 10 mg tablet Take 1 tablet by mouth daily at bedtime. fexofenadine HCl (CELY ALLERGY ORAL) Take 1 tablet by mouth as needed. No current facility-administered medications for this visit. ALLERGIES: Augmentin [Amoxicillin-Pot Clavulanate], Keflex [Cephalexin], and Prednisone PAST MEDICAL HISTORY PAST MEDICAL HISTORY Diagnosis Date Allergic rhinitis due to allergen 10/2019 Remote allergy shots, over 25 years ago. Arthritis Asthma 10/2019 Childhood. Cancer (HCC) Skin GERD (gastroesophageal reflux disease) Neuropathy Feet. Other and unspecified hyperlipidemia Unspecified hypothyroidism PAST SURGICAL HISTORY PAST SURGICAL HISTORY Procedure Laterality Date HERNIA REPAIR HX RPR UMBILICAL HRNA 5 YRS/> REDUCIBLE FAMILY HISTORY FAMILY HISTORY Problem Relation Age of Onset Prostate Cancer Father Asthma Father Severe. Thyroid Brother SOCIAL HISTORY Social History Tobacco Use Smoking status: Some Days Current packs/day: 0.00 Types: Cigarettes Last attempt to quit: 2022 Years since quittin.8 Smokeless tobacco: Never Tobacco comments: Infrequent smoker of cigarette (3 or less per month), marijuana couple hits per week. Vaping Use Vaping status: Never Used Substance Use Topics Alcohol use: Not Currently Comment: Beer 3 times a week Drug use: Yes Frequency: 2.0 times per week Types: Marijuana Comment: week REVIEW OF SYMPTOMS: REVIEW OF SYSTEMS: General: The patient denies fatigue, denies weight loss, denies weight gain, denies feeling hot, and feelings of cold. Eyes: The patient denies glaucoma, denies eye injury/surgery, + glasses or contacts. Ear/Nose/Throat: The patient + allergies, denies hayfever, denies ear infections, and denies bloody noses. Cardiovascular: The patient denies chest pain, denies heart disease, denies high blood pressure, denies high cholesterol, and denies poor circulation. Respiratory: The patient denies tuberculosis, denies pneumonia, denies frequent cough, denies shortness of breath, and denies coughing up blood. Gastrointestinal: The patient denies difficulty swallowing, denies acid reflux, denies ulcers, denies jaundice/hepatitis, denies gallbladder problems, denies vomiting, denies black or tarry stools, denies hemorrhoids, denies bleeding from rectum, denies diverticulitis, denies constipation, denies diarrhea, denies loss of stool control, and denies hernias. Kidney/Bladder: The patient denies kidney stones, denies urine infections, and denies bloody urine. Skin: The patient + a history of skin cancer, denies bleeding/changing moles, and denies a history of skin rash. Neurologic: The patient denies a history of epilepsy/convulsions, denies headaches, denies head/spinal injuries, and denies stroke/TIA. Psychiatric: The patient denies psychiatric medications, denies depression, and denies voices. Endocrine: The patient + thyroid disorders, denies diabetes, and denies hormonal problems. Hematologic: The patient denies a history of bruising, denies bleeding, and denies anemia. Infections: The patient denies a history of measles and mumps, denies rheumatic fever, and denies sexually transmitted diseases. Musculoskeletal: The patient denies back pain/injury, denies back problems, denies sciatica, denies knee/foot trouble, denies arthritis, or denies gout. PHYSICAL EXAMINATION: General: The patient is 69 year old, adult well nourished, well hydrated in no acute distress. The patient is oriented to time, place, and person. VITALS: Blood pressure 143/83, pulse 76, temperature 36.3 C (97.3 F), height 165.1 cm (5' 5), weight 84.3 kg (185 lb 12.8 oz), SpO2 100%. Body mass index is 30.92 kg/m . HEENT: Normal cephalic, ataumatic, pupils are equally round, sclera are anicteric, mucous membranes are moist, oropharynx is clear. Neck has no masses, asymmetry or lymphadenopathy. Respiratory: Clear to auscultation and percussion. Normal respiratory excursion and pattern. Cardiac: Examination is regular rate and rhythm. Normal S1/S2 Abdominal exam: Soft, nontender, with no palpable masses. No hepatosplenomegaly. No palpable hernias. Extremities: no clubbing, cyanosis or edema. No adenopathy. LABORATORY VALUES: As Noted RADIOLOGIC STUDIES: As Noted Assessment IMPRESSION: screen for colon cancer, history of colon polyps PLAN: I have reviewed my findings with the surgeon. Will plan for lower endoscopy. We discussed the risks and benefits of the planned endoscopy. I have informed the patient that complications can occur including failure to complete the endoscopy and perforation. Daiana had the opportunity to ask questions concerning the planned endoscopy. My staff has also explained the procedure to the patient in understandable terms and has given the patient printed material concerning the procedure. Daiana freely consents to surgery. I plan to use Golytely bowel preparation I have explained to the patient the difference between IV conscious sedation and MAC anesthesia - and I have offered either, according to the patient's wishes. I have explained that with IV conscious sedation there is no anesthesia provider available and therefore there is a limitation of the amount of IV medications that can be given and that the patient may wake up in the middle of the procedure and/or experience pain/discomfort during the procedure. Further discussion was done and the patient was given the opportunity to ask questions and all questions were answered. Daiana chooses IV conscious sedation. Daiana was counseled that if there are changes in his/her medical condition, to let the office know if surgery should proceed. If there are changes in patient's medical condition from time of this encounter to the day of the procedure that preclude anesthesia, patient may have procedure cancelled for patient's safety. Diagnoses: (Z12.11) Screen for colon cancer (primary encounter diagnosis) (Z86.0100) History of colonic polyps Portions of this documentation were copied and pasted from previous office visit notes in order to provide a cohesive continuity of the history. The note has been reviewed and edited and updated as necessary. Christina Drake APRN.EVELINA UPDATED HISTORY AND PHYSICAL EXAMINATION SERVICE DATE: 10/07/2024 SERVICE TIME: 12:40 PM SENSITIVE EXAMINATION CONSENT: The sensitive examination was discussed with the Patient or Patient's Authorized Customer Relations Advisor. As applicable, any other physician, advance practice provider, medical student, or other health professional student that will be observing or involved in the sensitive examination for educational or training purposes was discussed with the Patient or Authorized Customer Relations Advisor. The Patient or Authorized Customer Relations Advisor has agreed to proceed with the sensitive examination. (Sensitive examination includes inspection and/or palpation of the breasts, pelvis, prostate and anorectal regions) PHYSICAL EXAM MUST BE COMPLETED ON ADMISSION The History and Physical (completed in the past 30 days) has been reviewed and the patient has been examined. The contents accurately reflect the patient's condition with the following additions or revisions since the H&P was completed. Examination indicates no changes. This H&P can be found in the attached. SIGNATURE: Carlos A Holland III, MD PATIENT NAME: Daiana Abdalla DATE: October 07, 2024 TIME: 12:40 PM [facility] 10-07-2024 History and physical note HISTORY AND PHYSICAL Daiana Abdalla : 1955 REFERRING PHYSICIAN: No referring provider defined for this encounter. CHIEF COMPLAINT: Patient presents with: Consult: Colonoscopy consultation. HPI: Daiana is a 69 year old adult referred for endoscopy. Daiana notes due for screening colonoscopy- hx of polyps. Daiana denies abdominal pain.. Daiana denies diarrhea. Daiana denies constipation. Daiana denies a change in bowel habits. Daiana denies melena. Daiana denies bright red blood per rectum. Daiana denies hemorrhoids. Daiana denies heartburn. Daiana denies dysphagia. Daiana denies a history of ulcers/ peptic ulcer disease. Daiana denies family history of colon issues. Daiana has undergone prior endoscopy. Colonoscopy 04/[address] Melara at [facility]. Sedation:Midazolam 3 mg IV, Fentanyl 50 micrograms IV, Diphenhydramine 50 mg IV Impression: - Non-bleeding internal hemorrhoids. - Diverticulosis in the sigmoid colon. - Nodular and pseudopolypoid mucosa in the cecum. Biopsied. CONVERTED FINAL DIAGNOSIS Colon, thickened cecal fold, biopsy (A) - Sessile serrated polyp. Colonoscopy with 06/[address] Prater at [facility]. Sedation: Midazolam 4 mg IV, Fentanyl 75 micrograms IV Impression: - Preparation of the colon was fair. - One 15 mm polyp in the cecum, removed with mucosal resection. Resected and retrieved. Clip was placed. - The examination was otherwise normal. - Mucosal resection was performed. Resection and retrieval were complete. FINAL DIAGNOSIS A. Cecal polyp, biopsy: - Sessile serrated polyp. CAYETANO/lakesha 06/19/2022 Repeat colonoscopy in 6 mos. CURRENT MEDICATIONS Current Outpatient Medications Medication Sig levothyroxine (LEVOXYL) 175 mcg tablet Take 1 tablet by mouth once daily. Take on empty stomach. For Thyroid. meloxicam (MOBIC) 15 mg tablet Take 1 tablet by mouth once daily. Take with food. albuterol HFA (PROVENTIL HFA, VENTOLIN HFA) 90 mcg/actuation inhaler Inhale 2 Puffs as instructed every 4 hours as needed. tzhnvpvddth-kyjguaorb-cjfkyrpc (TRELEGY ELLIPTA) 200-62.5-25 mcg inhalation powder Inhale 1 Puff as instructed once daily. montelukast (SINGULAIR) 10 mg tablet Take 1 tablet by mouth daily at bedtime. fexofenadine HCl (CELY ALLERGY ORAL) Take 1 tablet by mouth as needed. No current facility-administered medications for this visit. ALLERGIES: Augmentin [Amoxicillin-Pot Clavulanate], Keflex [Cephalexin], and Prednisone PAST MEDICAL HISTORY PAST MEDICAL HISTORY Diagnosis Date Allergic rhinitis due to allergen 10/2019 Remote allergy shots, over 25 years ago. Arthritis Asthma 10/2019 Childhood. Cancer (HCC) Skin GERD (gastroesophageal reflux disease) Neuropathy Feet. Other and unspecified hyperlipidemia Unspecified hypothyroidism PAST SURGICAL HISTORY PAST SURGICAL HISTORY Procedure Laterality Date HERNIA REPAIR HX RPR UMBILICAL HRNA 5 YRS/> REDUCIBLE FAMILY HISTORY FAMILY HISTORY Problem Relation Age of Onset Prostate Cancer Father Asthma Father Severe. Thyroid Brother SOCIAL HISTORY Social History Tobacco Use Smoking status: Some Days Current packs/day: 0.00 Types: Cigarettes Last attempt to quit: 2022 Years since quittin.8 Smokeless tobacco: Never Tobacco comments: Infrequent smoker of cigarette (3 or less per month), marijuana couple hits per week. Vaping Use Vaping status: Never Used Substance Use Topics Alcohol use: Not Currently Comment: Beer 3 times a week Drug use: Yes Frequency: 2.0 times per week Types: Marijuana Comment: week REVIEW OF SYMPTOMS: REVIEW OF SYSTEMS: General: The patient denies fatigue, denies weight loss, denies weight gain, denies feeling hot, and feelings of cold. Eyes: The patient denies glaucoma, denies eye injury/surgery, + glasses or contacts. Ear/Nose/Throat: The patient + allergies, denies hayfever, denies ear infections, and denies bloody noses. Cardiovascular: The patient denies chest pain, denies heart disease, denies high blood pressure, denies high cholesterol, and denies poor circulation. Respiratory: The patient denies tuberculosis, denies pneumonia, denies frequent cough, denies shortness of breath, and denies coughing up blood. Gastrointestinal: The patient denies difficulty swallowing, denies acid reflux, denies ulcers, denies jaundice/hepatitis, denies gallbladder problems, denies vomiting, denies black or tarry stools, denies hemorrhoids, denies bleeding from rectum, denies diverticulitis, denies constipation, denies diarrhea, denies loss of stool control, and denies hernias. Kidney/Bladder: The patient denies kidney stones, denies urine infections, and denies bloody urine. Skin: The patient + a history of skin cancer, denies bleeding/changing moles, and denies a history of skin rash. Neurologic: The patient denies a history of epilepsy/convulsions, denies headaches, denies head/spinal injuries, and denies stroke/TIA. Psychiatric: The patient denies psychiatric medications, denies depression, and denies voices. Endocrine: The patient + thyroid disorders, denies diabetes, and denies hormonal problems. Hematologic: The patient denies a history of bruising, denies bleeding, and denies anemia. Infections: The patient denies a history of measles and mumps, denies rheumatic fever, and denies sexually transmitted diseases. Musculoskeletal: The patient denies back pain/injury, denies back problems, denies sciatica, denies knee/foot trouble, denies arthritis, or denies gout. PHYSICAL EXAMINATION: General: The patient is 69 year old, adult well nourished, well hydrated in no acute distress. The patient is oriented to time, place, and person. VITALS: Blood pressure 143/83, pulse 76, temperature 36.3 C (97.3 F), height 165.1 cm (5' 5), weight 84.3 kg (185 lb 12.8 oz), SpO2 100%. Body mass index is 30.92 kg/m . HEENT: Normal cephalic, ataumatic, pupils are equally round, sclera are anicteric, mucous membranes are moist, oropharynx is clear. Neck has no masses, asymmetry or lymphadenopathy. Respiratory: Clear to auscultation and percussion. Normal respiratory excursion and pattern. Cardiac: Examination is regular rate and rhythm. Normal S1/S2 Abdominal exam: Soft, nontender, with no palpable masses. No hepatosplenomegaly. No palpable hernias. Extremities: no clubbing, cyanosis or edema. No adenopathy. LABORATORY VALUES: As Noted RADIOLOGIC STUDIES: As Noted Assessment IMPRESSION: screen for colon cancer, history of colon polyps PLAN: I have reviewed my findings with the surgeon. Will plan for lower endoscopy. We discussed the risks and benefits of the planned endoscopy. I have informed the patient that complications can occur including failure to complete the endoscopy and perforation. Daiana had the opportunity to ask questions concerning the planned endoscopy. My staff has also explained the procedure to the patient in understandable terms and has given the patient printed material concerning the procedure. Daiana freely consents to surgery. I plan to use Golytely bowel preparation I have explained to the patient the difference between IV conscious sedation and MAC anesthesia - and I have offered either, according to the patient's wishes. I have explained that with IV conscious sedation there is no anesthesia provider available and therefore there is a limitation of the amount of IV medications that can be given and that the patient may wake up in the middle of the procedure and/or experience pain/discomfort during the procedure. Further discussion was done and the patient was given the opportunity to ask questions and all questions were answered. Daiana chooses IV conscious sedation. Daiana was counseled that if there are changes in his/her medical condition, to let the office know if surgery should proceed. If there are changes in patient's medical condition from time of this encounter to the day of the procedure that preclude anesthesia, patient may have procedure cancelled for patient's safety. Diagnoses: (Z12.11) Screen for colon cancer (primary encounter diagnosis) (Z86.0100) History of colonic polyps Portions of this documentation were copied and pasted from previous office visit notes in order to provide a cohesive continuity of the history. The note has been reviewed and edited and updated as necessary. Christinajose Drake APRN.CERTIFIED PHYSICIAN'S ASSISTANT UPDATED HISTORY AND PHYSICAL EXAMINATION SERVICE DATE: 10/07/2024 SERVICE TIME: 12:40 PM SENSITIVE EXAMINATION CONSENT: The sensitive examination was discussed with the Patient or Patient's Authorized Customer Relations Advisor. As applicable, any other physician, advance practice provider, medical student, or other health professional student that will be observing or involved in the sensitive examination for educational or training purposes was discussed with the Patient or Authorized Customer Relations Advisor. The Patient or Authorized Customer Relations Advisor has agreed to proceed with the sensitive examination. (Sensitive examination includes inspection and/or palpation of the breasts, pelvis, prostate and anorectal regions) PHYSICAL EXAM MUST BE COMPLETED ON ADMISSION The History and Physical (completed in the past 30 days) has been reviewed and the patient has been examined. The contents accurately reflect the patient's condition with the following additions or revisions since the H&P was completed. Examination indicates no changes. This H&P can be found in the attached. SIGNATURE: Carlos A Holland III, MD PATIENT NAME: Daiana Abdalla DATE: October 07, 2024 TIME: 12:40 PM documented in this encounter [facility] 10-07-2024 Nurse Note pt arrived to phase 2 resting on left side. SR up x 2, call light in reach. Disha Berg RN [facility] 10-07-2024 Nurse Note pt arrived to phase 2 resting on left side. SR up x 2, call light in reach. Disha Berg RN documented in this encounter [facility] 09-21-2024 Telephone encounter Note 10-07-2024 Colonoscopy [facility] provider went over all prep instructions, patient has direct number to call if any questions after appointment Tigist Guo [facility] 09-21-2024 Miscellaneous Notes 10-07-2024 Colonoscopy [facility] provider went over all prep instructions, patient has direct number to call if any questions after appointment Tigist Guo documented in this encounter [facility] 09-21-2024 History of Present illness Narrative HISTORY AND PHYSICAL Daiana Abdalla : 1955 REFERRING PHYSICIAN: No referring provider defined for this encounter. CHIEF COMPLAINT: Patient presents with: Consult: Colonoscopy consultation. HPI: Daiana is a 69 year old adult referred for endoscopy. Daiana notes due for screening colonoscopy- hx of polyps. Daiana denies abdominal pain.. Daiana denies diarrhea. Daiana denies constipation. Daiana denies a change in bowel habits. Daiana denies melena. Daiana denies bright red blood per rectum. Daiana denies hemorrhoids. Daiana denies heartburn. Daiana denies dysphagia. Daiana denies a history of ulcers/ peptic ulcer disease. Daiana denies family history of colon issues. Daiana has undergone prior endoscopy. Colonoscopy 04/[address] Melara at [facility]. Sedation:Midazolam 3 mg IV, Fentanyl 50 micrograms IV, Diphenhydramine 50 mg IV Impression: - Non-bleeding internal hemorrhoids. - Diverticulosis in the sigmoid colon. - Nodular and pseudopolypoid mucosa in the cecum. Biopsied. CONVERTED FINAL DIAGNOSIS Colon, thickened cecal fold, biopsy (A) - Sessile serrated polyp. Colonoscopy with 06/[address] Prater at [facility]. Sedation: Midazolam 4 mg IV, Fentanyl 75 micrograms IV Impression: - Preparation of the colon was fair. - One 15 mm polyp in the cecum, removed with mucosal resection. Resected and retrieved. Clip was placed. - The examination was otherwise normal. - Mucosal resection was performed. Resection and retrieval were complete. FINAL DIAGNOSIS A. Cecal polyp, biopsy: - Sessile serrated polyp. CAYETANO/lakesha 06/19/2022 Repeat colonoscopy in 6 mos. Current Outpatient Medications Medication Sig levothyroxine (LEVOXYL) 175 mcg tablet Take 1 tablet by mouth once daily. Take on empty stomach. For Thyroid. meloxicam (MOBIC) 15 mg tablet Take 1 tablet by mouth once daily. Take with food. albuterol HFA (PROVENTIL HFA, VENTOLIN HFA) 90 mcg/actuation inhaler Inhale 2 Puffs as instructed every 4 hours as needed. rvyktiqrebq-jwchdrpbf-zsdobamn (TRELEGY ELLIPTA) 200-62.5-25 mcg inhalation powder Inhale 1 Puff as instructed once daily. montelukast (SINGULAIR) 10 mg tablet Take 1 tablet by mouth daily at bedtime. fexofenadine HCl (CELY ALLERGY ORAL) Take 1 tablet by mouth as needed. No current facility-administered medications for this visit. ALLERGIES: Augmentin [Amoxicillin-Pot Clavulanate], Keflex [Cephalexin], and Prednisone PAST MEDICAL HISTORY Diagnosis Date Allergic rhinitis due to allergen 10/2019 Remote allergy shots, over 25 years ago. Arthritis Asthma 10/2019 Childhood. Cancer (HCC) Skin GERD (gastroesophageal reflux disease) Neuropathy Feet. Other and unspecified hyperlipidemia Unspecified hypothyroidism PAST SURGICAL HISTORY Procedure Laterality Date HERNIA REPAIR HX RPR UMBILICAL HRNA 5 YRS/> REDUCIBLE FAMILY HISTORY Problem Relation Age of Onset Prostate Cancer Father Asthma Father Severe. Thyroid Brother Social History Tobacco Use Smoking status: Some Days Current packs/day: 0.00 Types: Cigarettes Last attempt to quit: 2022 Years since quittin.8 Smokeless tobacco: Never Tobacco comments: Infrequent smoker of cigarette (3 or less per month), marijuana couple hits per week. Vaping Use Vaping status: Never Used Substance Use Topics Alcohol use: Not Currently Comment: Beer 3 times a week Drug use: Yes Frequency: 2.0 times per week Types: Marijuana Comment: week REVIEW OF SYMPTOMS: REVIEW OF SYSTEMS: General: The patient denies fatigue, denies weight loss, denies weight gain, denies feeling hot, and feelings of cold. Eyes: The patient denies glaucoma, denies eye injury/surgery, + glasses or contacts. Ear/Nose/Throat: The patient + allergies, denies hayfever, denies ear infections, and denies bloody noses. Cardiovascular: The patient denies chest pain, denies heart disease, denies high blood pressure, denies high cholesterol, and denies poor circulation. Respiratory: The patient denies tuberculosis, denies pneumonia, denies frequent cough, denies shortness of breath, and denies coughing up blood. Gastrointestinal: The patient denies difficulty swallowing, denies acid reflux, denies ulcers, denies jaundice/hepatitis, denies gallbladder problems, denies vomiting, denies black or tarry stools, denies hemorrhoids, denies bleeding from rectum, denies diverticulitis, denies constipation, denies diarrhea, denies loss of stool control, and denies hernias. Kidney/Bladder: The patient denies kidney stones, denies urine infections, and denies bloody urine. Skin: The patient + a history of skin cancer, denies bleeding/changing moles, and denies a history of skin rash. Neurologic: The patient denies a history of epilepsy/convulsions, denies headaches, denies head/spinal injuries, and denies stroke/TIA. Psychiatric: The patient denies psychiatric medications, denies depression, and denies voices. Endocrine: The patient + thyroid disorders, denies diabetes, and denies hormonal problems. Hematologic: The patient denies a history of bruising, denies bleeding, and denies anemia. Infections: The patient denies a history of measles and mumps, denies rheumatic fever, and denies sexually transmitted diseases. Musculoskeletal: The patient denies back pain/injury, denies back problems, denies sciatica, denies knee/foot trouble, denies arthritis, or denies gout. PHYSICAL EXAMINATION: General: The patient is 69 year old, adult well nourished, well hydrated in no acute distress. The patient is oriented to time, place, and person. VITALS: Blood pressure 143/83, pulse 76, temperature 36.3 C (97.3 F), height 165.1 cm (5' 5), weight 84.3 kg (185 lb 12.8 oz), SpO2 100%. Body mass index is 30.92 kg/m . HEENT: Normal cephalic, ataumatic, pupils are equally round, sclera are anicteric, mucous membranes are moist, oropharynx is clear. Neck has no masses, asymmetry or lymphadenopathy. Respiratory: Clear to auscultation and percussion. Normal respiratory excursion and pattern. Cardiac: Examination is regular rate and rhythm. Normal S1/S2 Abdominal exam: Soft, nontender, with no palpable masses. No hepatosplenomegaly. No palpable hernias. Extremities: no clubbing, cyanosis or edema. No adenopathy. LABORATORY VALUES: As Noted RADIOLOGIC STUDIES: As Noted Assessment IMPRESSION: screen for colon cancer, history of colon polyps PLAN: I have reviewed my findings with the surgeon. Will plan for lower endoscopy. We discussed the risks and benefits of the planned endoscopy. I have informed the patient that complications can occur including failure to complete the endoscopy and perforation. Daiana had the opportunity to ask questions concerning the planned endoscopy. My staff has also explained the procedure to the patient in understandable terms and has given the patient printed material concerning the procedure. Daiana freely consents to surgery. I plan to use Golytely bowel preparation I have explained to the patient the difference between IV conscious sedation and MAC anesthesia - and I have offered either, according to the patient's wishes. I have explained that with IV conscious sedation there is no anesthesia provider available and therefore there is a limitation of the amount of IV medications that can be given and that the patient may wake up in the middle of the procedure and/or experience pain/discomfort during the procedure. Further discussion was done and the patient was given the opportunity to ask questions and all questions were answered. Daiana chooses IV conscious sedation. Daiana was counseled that if there are changes in his/her medical condition, to let the office know if surgery should proceed. If there are changes in patient's medical condition from time of this encounter to the day of the procedure that preclude anesthesia, patient may have procedure cancelled for patient's safety. Diagnoses: (Z12.11) Screen for colon cancer (primary encounter diagnosis) (Z86.0100) History of colonic polyps Portions of this documentation were copied and pasted from previous office visit notes in order to provide a cohesive continuity of the history. The note has been reviewed and edited and updated as necessary. Christina Drake APRN.CERTIFIED PHYSICIAN'S ASSISTANT documented in this encounter [facility] 09-21-2024 Note HNO ID: [id number] Author: CHRISTINA DRAKE APRN.EVELINA Service: ? Author Type: Nurse Practitioner Type: Progress Notes Filed: 09/21/2024 09:10 Note Text: HISTORY AND PHYSICAL Daiana Abdalla : 1955 REFERRING PHYSICIAN: No referring provider defined for this encounter. CHIEF COMPLAINT: Patient presents with: Consult: Colonoscopy consultation. HPI: Daiana is a 69 year old adult referred for endoscopy. Daiana notes due for screening colonoscopy- hx of polyps. Daiana denies abdominal pain.. Daiana denies diarrhea. Daiana denies constipation. Daiana denies a change in bowel habits. Daiana denies melena. Daiana denies bright red blood per rectum. Daiana denies hemorrhoids. Daiana denies heartburn. Daiana denies dysphagia. Daiana denies a history of ulcers/ peptic ulcer disease. Daiana denies family history of colon issues. Daiana has undergone prior endoscopy. Colonoscopy 04/[address] Melara at [facility]. Sedation:Midazolam 3 mg IV, Fentanyl 50 micrograms IV, Diphenhydramine 50 mg IV Impression: - Non-bleeding internal hemorrhoids. - Diverticulosis in the sigmoid colon. - Nodular and pseudopolypoid mucosa in the cecum. Biopsied. CONVERTED FINAL DIAGNOSIS Colon, thickened cecal fold, biopsy (A) - Sessile serrated polyp. Colonoscopy with 06/[address] Prater at [facility]. Sedation: Midazolam 4 mg IV, Fentanyl 75 micrograms IV Impression: - Preparation of the colon was fair. - One 15 mm polyp in the cecum, removed with mucosal resection. Resected and retrieved. Clip was placed. - The examination was otherwise normal. - Mucosal resection was performed. Resection and retrieval were complete. FINAL DIAGNOSIS A. Cecal polyp, biopsy: - Sessile serrated polyp. CAYETANO/lakesha 06/19/2022 Repeat colonoscopy in 6 mos. Current Outpatient Medications Medication Sig levothyroxine (LEVOXYL) 175 mcg tablet Take 1 tablet by mouth once daily. Take on empty stomach. For Thyroid. meloxicam (MOBIC) 15 mg tablet Take 1 tablet by mouth once daily. Take with food. albuterol HFA (PROVENTIL HFA, VENTOLIN HFA) 90 mcg/actuation inhaler Inhale 2 Puffs as instructed every 4 hours as needed. rcrscidnkpd-bgaanlgoo-ycvfdztj (TRELEGY ELLIPTA) 200-62.5-25 mcg inhalation powder Inhale 1 Puff as instructed once daily. montelukast (SINGULAIR) 10 mg tablet Take 1 tablet by mouth daily at bedtime. fexofenadine HCl (CELY ALLERGY ORAL) Take 1 tablet by mouth as needed. No current facility-administered medications for this visit. ALLERGIES: Augmentin [Amoxicillin-Pot Clavulanate], Keflex [Cephalexin], and Prednisone PAST MEDICAL HISTORY Diagnosis Date Allergic rhinitis due to allergen 10/2019 Remote allergy shots, over 25 years ago. Arthritis Asthma 10/2019 Childhood. Cancer (HCC) Skin GERD (gastroesophageal reflux disease) Neuropathy Feet. Other and unspecified hyperlipidemia Unspecified hypothyroidism PAST SURGICAL HISTORY Procedure Laterality Date HERNIA REPAIR HX RPR UMBILICAL HRNA 5 YRS/> REDUCIBLE FAMILY HISTORY Problem Relation Age of Onset Prostate Cancer Father Asthma Father Severe. Thyroid Brother Social History Tobacco Use Smoking status: Some Days Current packs/day: 0.00 Types: Cigarettes Last attempt to quit: 2022 Years since quittin.8 Smokeless tobacco: Never Tobacco comments: Infrequent smoker of cigarette (3 or less per month), marijuana couple hits per week. Vaping Use Vaping status: Never Used Substance Use Topics Alcohol use: Not Currently Comment: Beer 3 times a week Drug use: Yes Frequency: 2.0 times per week Types: Marijuana Comment: week REVIEW OF SYMPTOMS: REVIEW OF SYSTEMS: General: The patient denies fatigue, denies weight loss, denies weight gain, denies feeling hot, and feelings of cold. Eyes: The patient denies glaucoma, denies eye injury/surgery, + glasses or contacts. Ear/Nose/Throat: The patient + allergies, denies hayfever, denies ear infections, and denies bloody noses. Cardiovascular: The patient denies chest pain, denies heart disease, denies high blood pressure, denies high cholesterol, and denies poor circulation. Respiratory: The patient denies tuberculosis, denies pneumonia, denies frequent cough, denies shortness of breath, and denies coughing up blood. Gastrointestinal: The patient denies difficulty swallowing, denies acid reflux, denies ulcers, denies jaundice/hepatitis, denies gallbladder problems, denies vomiting, denies black or tarry stools, denies hemorrhoids, denies bleeding from rectum, denies diverticulitis, denies constipation, denies diarrhea, denies loss of stool control, and denies hernias. Kidney/Bladder: The patient denies kidney stones, denies urine infections, and denies bloody urine. Skin: The patient + a history of skin cancer, denies bleeding/changing moles, and denies a history of skin rash. Neurologic: The patient denies a history of epileps (more content not included)... [facility] 09-10-2024 Telephone encounter Note The following approved medication requests have been transmitted electronically. Requested Prescriptions Pending Prescriptions Disp Refills levothyroxine (LEVOXYL) 175 mcg tablet 30 tablet 11 Sig: Take 1 tablet by mouth once daily. Take on empty stomach. For Thyroid. Austyn Boo APRN.CNP [facility] 09-10-2024 Miscellaneous Notes The following approved medication requests have been transmitted electronically. Requested Prescriptions Pending Prescriptions Disp Refills levothyroxine (LEVOXYL) 175 mcg tablet 30 tablet 11 Sig: Take 1 tablet by mouth once daily. Take on empty stomach. For Thyroid. Austyn Boo APRN.CNP Prescription Refill Information The patient has been identified by name and date of : Yes Caregiver verified no other encounters exist for this prescription request: Yes Caregiver confirmed with patient/requestor that no other refills are due, in the near future, with this provider at this time: Yes The last office visit in the department: 08/13/24 Does the patient have a future office visit with this provider/department: No - had Medicare Wellness. Requested Prescriptions Pending Prescriptions Disp Refills levothyroxine (LEVOXYL) 175 mcg tablet 30 tablet 11 Sig: Take 1 tablet by mouth once daily. Take on empty stomach. For Thyroid. Shannan Brennan MA September 10, 2024 8:41 AM documented in this encounter [facility] 09-10-2024 Telephone encounter Note Prescription Refill Information The patient has been identified by name and date of : Yes Caregiver verified no other encounters exist for this prescription request: Yes Caregiver confirmed with patient/requestor that no other refills are due, in the near future, with this provider at this time: Yes The last office visit in the department: 08/13/24 Does the patient have a future office visit with this provider/department: No - had Medicare Wellness. Requested Prescriptions Pending Prescriptions Disp Refills levothyroxine (LEVOXYL) 175 mcg tablet 30 tablet 11 Sig: Take 1 tablet by mouth once daily. Take on empty stomach. For Thyroid. Shannan Brennan MA September 10, 2024 8:41 AM [facility] 08-13-2024 History of Present illness Narrative Images from the original note were not included. Daiana Abdalla is a 69 year old adult here for a Medicare wellness visit. Overall doing well Skin concerns; some sun damage; lesion on left forearm that does not heal. Discussed colonoscopy; had serrated poly removed 2021; at the time 6 month follow up recommended. He will follow with Dr Melara. Arthritis pain in hands and knees, uses mobic 1-2 times.week Medicare Health Risk Assessment General Health Excellent Exercise: Minutes/Day 140 min Exercise: Days/Week 7 days Alcohol: Daily Use Patient declined Alcohol: Drinks/Day Patient declined Alcohol: 6 or more drinks Patient declined Feel off balance No Concerns: Teeth/Dentures No Concerns: Sexual function No Troubled by feelings None of the above Frequency: Eating healthy diet Nearly every day ADLs requiring help None of the above Safety precautions in home/vehicle Smoke, vape, chews tobacco No Difficulty hearing No Difficulty seeing No Current Providers Specialists: I have reviewed specialist-related care of the patient in the medical record. Current care team: Patient Care Team: Melvi Amaral MD as PCP - General Outside specialists seen: Pulmonary Medical/Family history review Reviewed and updated problem list, medical/surgical/family/social history, medications, and allergies. Opioid use review Opioid Medications (last 90 days) No data to display Anxiety/Depression screening PHQ-9 Score: 0. ALEXANDRA-7 Score: 0. Recommendation: no further intervention at this time Cognitive screening Cognitive screening reviewed and Patient declined Mini-Cog test. Functional Observation Was the patient's Timed Up & Go test unsteady or >= 12 seconds? No Advance Care Planning Patient did not wish or was not able to name a surrogate decision maker or provide an advance care plan Not sure if they have this, he will check with his Measurements BP 128/78 Pulse 68 Resp 16 Ht 167.6 cm (5' 6) Wt 83.1 kg (183 lb 3.2 oz) BMI 29.57 kg/m Vision Screening: Right: 20/20 Left: 20/ 20 Both: 20/20 CV: RRR Lungs: clear Skin: raised excoriated lesion left forearm Assessment/Plan Medicare annual wellness visit, subsequent (Z00.00) - Counseled on healthy diet and regular exercise - Personalized prevention plan provided ASSESSMENT/PLAN: 1. Medicare annual wellness visit, subsequent - ICD9: V70.0, ICD10: Z00.00 (primary diagnosis) - Counseled on healthy diet and regular exercise 2. Arthritis - ICD9: 716.90, ICD10: M19.90 Use mobic sparingly - MELOXICAM 15 MG TABLET 3. Screening for depression - ICD9: V79.0, ICD10: Z13.31 - DEPRESSION SCREENING 4. Encounter for screening examination for other mental health and behavioral disorders - ICD9: V79.8, ICD10: Z13.39 - ANXIETY SCREENING 5. Mixed hyperlipidemia - ICD9: 272.2, ICD10: E78.2 - LIPID PANEL BASIC - COMPREHENSIVE METABOLIC PANEL 6. Acquired hypothyroidism - ICD9: 244.9, ICD10: E03.9 - THYROID STIMULATING HORMONE 7. Screening for prostate cancer - ICD9: V76.44, ICD10: Z12.5 - PSA/PROSTATE SPECIFIC ANTIGEN SCREENING Notify of lab results. He will contact [facility] and Dr Melara for follow up Follow up in 1 year Melvi Amaral MD documented in this encounter [facility] 08-13-2024 Note HNO ID: [id number] Author: MELVI AMARAL MD Service: ? Author Type: Physician Type: Progress Notes Filed: 08/13/2024 14:10 Note Text: Daiana Loida Abdalla is a 69 year old adult here for a Medicare wellness visit. Overall doing well Skin concerns; some sun damage; lesion on left forearm that does not heal. Discussed colonoscopy; had serrated poly removed 2021; at the time 6 month follow up recommended. He will follow with Dr Melara. Arthritis pain in hands and knees, uses mobic 1-2 times.week Medicare Health Risk Assessment General Health Excellent Exercise: Minutes/Day 140 min Exercise: Days/Week 7 days Alcohol: Daily Use Patient declined Alcohol: Drinks/Day Patient declined Alcohol: 6 or more drinks Patient declined Feel off balance No Concerns: Teeth/Dentures No Concerns: Sexual function No Troubled by feelings None of the above Frequency: Eating healthy diet Nearly every day ADLs requiring help None of the above Safety precautions in home/vehicle Smoke, vape, chews tobacco No Difficulty hearing No Difficulty seeing No Current Providers Specialists: I have reviewed specialist-related care of the patient in the medical record. Current care team: Patient Care Team: Melvi Amaral MD as PCP - General Outside specialists seen: Pulmonary Medical/Family history review Reviewed and updated problem list, medical/surgical/family/social history, medications, and allergies. Opioid use review Opioid Medications (last 90 days) No data to display Anxiety/Depression screening PHQ-9 Score: 0. ALEXANDRA-7 Score: 0. Recommendation: no further intervention at this time Cognitive screening Cognitive screening reviewed and Patient declined Mini-Cog test. Functional Observation Was the patient's Timed Up AND Go test unsteady or >= 12 seconds? No Advance Care Planning Patient did not wish or was not able to name a surrogate decision maker or provide an advance care plan Not sure if they have this, he will check with his Measurements BP 128/78 Pulse 68 Resp 16 Ht 167.6 cm (5' 6) Wt 83.1 kg (183 lb 3.2 oz) BMI 29.57 kg/m? Vision Screening: Right: 20/20 Left: 20/ 20 Both: 20/20 CV: RRR Lungs: clear Skin: raised excoriated lesion left forearm Assessment/Plan Medicare annual wellness visit, subsequent (Z00.00) - Counseled on healthy diet and regular exercise - Personalized prevention plan provided ASSESSMENT/PLAN: 1. Medicare annual wellness visit, subsequent - ICD9: V70.0, ICD10: Z00.00 (primary diagnosis) - Counseled on healthy diet and regular exercise 2. Arthritis - ICD9: 716.90, ICD10: M19.90 Use mobic sparingly - MELOXICAM 15 MG TABLET 3. Screening for depression - ICD9: V79.0, ICD10: Z13.31 - DEPRESSION SCREENING 4. Encounter for screening examination for other mental health and behavioral disorders - ICD9: V79.8, ICD10: Z13.39 - ANXIETY SCREENING 5. Mixed hyperlipidemia - ICD9: 272.2, ICD10: E78.2 - LIPID PANEL BASIC - COMPREHENSIVE METABOLIC PANEL 6. Acquired hypothyroidism - ICD9: 244.9, ICD10: E03.9 - THYROID STIMULATING HORMONE 7. Screening for prostate cancer - ICD9: V76.44, ICD10: Z12.5 - PSA/PROSTATE SPECIFIC ANTIGEN SCREENING Notify of lab results. He will contact Derm and Dr Melara for follow up Follow up in 1 year Melvi Amaral MD [facility] 07-27-2024 Telephone encounter Note Patient notified Jose Miguel sent. He will compare prices. Amanda Canales LPN [facility] 07-27-2024 Miscellaneous Notes Patient notified Jose Miguel sent. He will compare prices. Amanda Canales LPN Called [facility], RX is still processing but copay has increased from $42 to $106. Pharmacy believes this is related to melanie alvarado. Amanda Canales LPN Patient calling stating that the Trelegy has become to expensive and asking if a cheaper alternative could be ordered. Patient adds that he is completely out of his med and has attempted to work with his insurance but has not gotten anywhere. Patient uses [facility] [place]. Chary Lakhani RN documented in this encounter [facility] 07-27-2024 Telephone encounter Note Called [facility], RX is still processing but copay has increased from $42 to $106. Pharmacy believes this is related to melanie alvarado. Amanda Canales LPN [facility] 07-27-2024 Telephone encounter Note Patient calling stating that the Trelegy has become to expensive and asking if a cheaper alternative could be ordered. Patient adds that he is completely out of his med and has attempted to work with his insurance but has not gotten anywhere. Patient uses [facility] [place]. Chary Lakhani RN [facility] 07-16-2024 Telephone encounter Note Patient returned call and appt scheduled. [facility] 07-16-2024 Miscellaneous Notes Patient returned call and appt scheduled. Due for Medicare Wellness. Message left for pt to call back. Evelin Gregg MA documented in this encounter [facility] 07-16-2024 Telephone encounter Note Due for Medicare Wellness. Message left for pt to call back. Evelin Gregg MA [facility] 07-05-2024 History of Present illness Narrative Images from the original note were not included. . Respiratory [place] Note Patient name: Daiana Abdalla PCP: Melvi Amaral MD CC: Follow-up asthma HPI: Daiana Abdalla 69 year old adult sometime smoker of cigarettes and marijuana with PMH significant for obesity, asthma, allergies, HLD, GERD, hypothyroidism with worsening of his asthma following COVID. PFT with obstruction of midflows and Yann elevated. Current therapy consists of Trelegy Ellipta and as needed albuterol with normalization of his Yann. Today he states he has been doing well. He needed his albuterol once since his last visit. He does not remember the details surrounding his chest tightness and shortness of breath. He currently denies any respiratory symptoms including chest tightness, severe cough, wheezing or dyspnea limiting his activities. He has noted that today he is coughing more, no sputum production. He does not use his Trelegy every day as prescribed. No recent upper respiratory infections, ED visits or hospitalizations. No current allergy symptoms. DATA: ASTHMA CONTROL TEST Date: 07/05/2024 In the last 4 weeks, how much of the time did your asthma keep you from getting as much done at work or home that you wanted to do? Some of the time (3) In the last 4 weeks, how often have you had shortness of breath? Once or twice per week (4) In the last 4 weeks, how often did your asthma symptoms (wheezing, coughing, shortness of breath, chest tightness or pain) wake you up at night or earlier than usual? 2 or 3 nights per week (2) In the last 4 weeks, how often have you used your rescue inhaler or nebulizer medication (such as Albuterol, Proventil, Ventolin, Maxair, Xoponex, or Primatene Mist)? Not at all (5) In the last 4 weeks, how would you rate your asthma control? Well controlled (4) Total: - SERVICE DATE: 07/05/2024 SERVICE TIME: 9:50 AM Oral Exhaled Nitric Oxide measurement: 23.0 (ppb) Oral Exhaled Nitric Oxide measurement (Previous Encounters) Test Date Oral Exhaled Nitric Oxide (ppb) 07/05/2024 23.0 11/25/2022 12.0 07/26/2022 9.0 11/09/2019 83.0 (A) PAST MEDICAL HISTORY 10/2019: Allergic rhinitis due to allergen Comment: Remote allergy shots, over 25 years ago. No date: Arthritis 10/2019: Asthma Comment: Childhood. No date: Cancer (HCC) Comment: Skin No date: GERD (gastroesophageal reflux disease) No date: Neuropathy Comment: Feet. No date: Other and unspecified hyperlipidemia No date: Unspecified hypothyroidism ALLERGIES Allergen Reactions Augmentin [Amoxicil* Rash Keflex [Cephalexin] Hives Prednisone Intolerance Dizziness, tachycardia pbwshnavvmr-tflasrgkl-ceecjcnp (TRELEGY ELLIPTA) 200-62.5-25 mcg inhalation powder Inhale 1 Puff as instructed once daily. montelukast (SINGULAIR) 10 mg tablet Take 1 tablet by mouth daily at bedtime. levothyroxine (LEVOXYL) 175 mcg tablet Take 1 tablet by mouth once daily. Take on empty stomach. For Thyroid. meloxicam (MOBIC) 15 mg tablet Take 1 tablet by mouth once daily. Take with food. fexofenadine HCl (CELY ALLERGY ORAL) Take 1 tablet by mouth as needed. albuterol HFA (PROVENTIL HFA, VENTOLIN HFA) 90 mcg/actuation inhaler Inhale 2 Puffs as instructed every 4 hours as needed. Social History Tobacco Use Smoking status: Some Days Current packs/day: 0.00 Types: Cigarettes Last attempt to quit: 2022 Years since quittin.6 Smokeless tobacco: Never Tobacco comments: Infrequent smoker of cigarette (3 or less per month), marijuana couple hits per week. Vaping Use Vaping status: Never Used Substance Use Topics Alcohol use: Not Currently Comment: Beer 3 times a week Drug use: Yes Frequency: 2.0 times per week Types: Marijuana Comment: week FAMILY HISTORY Problem Relation Age of Onset Prostate Cancer Father Asthma Father Severe. Thyroid Brother PAST SURGICAL HISTORY No date: HERNIA REPAIR HX No date: RPR UMBILICAL HRNA 5 YRS/> REDUCIBLE PMH, Social history, family history and surgical history reviewed and updated in EMR REVIEW OF SYSTEMS: CONSTITUTIONAL: No fevers, chills, nightsweats, unintended weight loss HEENT: Denies nasal congestion/sinus symptoms, allergy problems. EYES: No diplopia or blurry vision. CARDIOVASCULAR: No chest pain, dyspnea, palpitations, edema. PULM: See HPI INTEGUMENTARY: No new skin changes or rashes PHYSICAL EXAMINATION: Wt 184 lb (83.5kg) BP 136/80, pulse 67, RR 16, SpO2 96% on room air General Appearance: Age-appropriate male, NAD. Skin: Skin color, texture, turgor normal, no suspicious rashes or lesions. Head: Normocephalic, no masses, lesions, tenderness or abnormalities. Eyes: Sclera, conjunctiva normal. Oropharynx: No oral lesions or thrush. Neck: No JVD, no masses, no adenopathy. Lungs: Not labored, normal to percussion, no wheezes or crackles. Heart: Regular rate and rhythm, no murmurs or gallops. Extremities: No edema clubbing. Assessment/Plan: 1. Mild persistent asthma, uncomplicated -Current cough likely related to poor asthma control. Encouraged patient to use his Trelegy every day. Refilled prescription for albuterol. -RTC 6 months or sooner with problems Fifi Salcido MD Respiratory Bowdle documented in this encounter [facility] 07-05-2024 Nurse Note Intake information documented in the prior visit with ARELI Diaz today. [facility] 07-05-2024 Nurse Note Intake information documented in the prior visit with ARELI Diaz today. documented in this encounter [facility] 07-05-2024 Procedure note Associated Ord er(s): NITRIC OXIDE, EXHALED RESPIRATORY THERAPY ORAL EXHALED NITRIC OXIDE SERVICE DATE: 07/05/2024 SERVICE TIME: 9:50 AM Oral Exhaled Nitric Oxide measurement: 23.0 (ppb) Normal: Adult <25 ppb, pediatric (<12 years) <20 ppb High Normal / Increased: Adult 25-50 ppb, pediatric (<12 years) 20-35 ppb Moderately raised exhaled Nitric Oxide may indicate underlying inflammation, but note that: Cold and influenza can raise exhaled Nitric Oxide and some patients have higher baseline exhaled Nitric Oxide levels than others. High: Adult >50 ppb, pediatric (<12 years) >35 ppb Indicative of ongoing eosinophilic inflammation. Symptomatic patient likely to respond to steroids. Possible causes (if already on steroids): Poor compliance, recent allergen exposure, steroid dose inadequate, and steroid resistance. Note that not all patients with high exhaled nitric oxide levels display symptoms. Oral Exhaled Nitric Oxide measurement (Previous Encounters) Test Date Oral Exhaled Nitric Oxide (ppb) 07/05/2024 23.0 11/25/2022 12.0 07/26/2022 9.0 11/09/2019 83.0 (A) NAME: ARELI Diaz PATIENT NAME: Daiana Loida Meneseslatosha DATE: July 05, 2024 TIME: 9:50 AM [facility] 07-05-2024 Procedure note Associated Ord er(s): NITRIC OXIDE, EXHALED RESPIRATORY THERAPY ORAL EXHALED NITRIC OXIDE SERVICE DATE: 07/05/2024 SERVICE TIME: 9:50 AM Oral Exhaled Nitric Oxide measurement: 23.0 (ppb) Normal: Adult <25 ppb, pediatric (<12 years) <20 ppb High Normal / Increased: Adult 25-50 ppb, pediatric (<12 years) 20-35 ppb Moderately raised exhaled Nitric Oxide may indicate underlying inflammation, but note that: Cold and influenza can raise exhaled Nitric Oxide and some patients have higher baseline exhaled Nitric Oxide levels than others. High: Adult >50 ppb, pediatric (<12 years) >35 ppb Indicative of ongoing eosinophilic inflammation. Symptomatic patient likely to respond to steroids. Possible causes (if already on steroids): Poor compliance, recent allergen exposure, steroid dose inadequate, and steroid resistance. Note that not all patients with high exhaled nitric oxide levels display symptoms. Oral Exhaled Nitric Oxide measurement (Previous Encounters) Test Date Oral Exhaled Nitric Oxide (ppb) 07/05/2024 23.0 11/25/2022 12.0 07/26/2022 9.0 11/09/2019 83.0 (A) NAME: ARELI Diaz PATIENT NAME: Daiana Abdalla DATE: July 05, 2024 TIME: 9:50 AM documented in this encounter [facility] 07-05-2024 History of Present illness Narrative PULM FUNCTION: Provider: Fifi Salcido MD Assisting Tech: Yuridia Muñoz RPFT Exhaled Nitric Oxide: 1 documented in this encounter [facility] 06-23-2024 History of Present illness Narrative POPULATION HEALTH NAVIGATION OUTREACH Action/FYI Patient responded via S[employer] Weibo and declined scheduling No need to at this time Reason for Outreach Returned Call/MyChart Patient Contacted: Spoke to patient/parent/or legal guardian Patient identified by name and date of : Yes Returned call/MyChart actions taken: Patient declined: Doesn't feel it's necessary Navigation Signature: Xuan Villalta MA June 23, 2024 1:41 PM POPULATION HEALTH NAVIGATION OUTREACH Action/FYI Patient is on [facility] CURRENT ROSTER Workbench list for below and needs appointment to address: Abdominal Aortic Aneurysm Screening Pneumococcal Vaccine: 65+(1 of 2 - PCV) Depression Screening Anxiety Screening Mammogram Screening Shingrix Vaccine(1 of 2) RSV Vaccine(1 - 1-dose 60+ series) Colorectal Cancer Screening Covid-19 Vaccine( season) Advance Directive Discussion Annual PCP Team Chronic Disease Visit No results found for: HBA1C Patient due for: Medicare Annual Wellness Visit Breast Cancer Screening Colorectal Cancer Screening Advance Directives Left message for patient to call back. Sent Sina Weibo message. No HCC Reason for Outreach Care Gap/HCC or Scheduling Wellness Visits Care Gaps due: Medicare Annual Wellness Visit Breast Cancer Screening Colorectal Cancer Screening Advance Directives Patient Contacted: Unable or unnecessary to reach patient: Left message MyChart message sent Navigation Signature: Xuan Villalta MA June 23, 2024 7:46 AM documented in this encounter [facility] 04-13-2024 History of Present illness Narrative POPULATION HEALTH NAVIGATION OUTREACH Action/FYI Contacted patient to schedule [place] Annual Wellness Visit, care gaps and HCCs due. Spoke to patient and he will call back or use My Chart to schedule. Reason for Outreach Care Gap/HCC or Scheduling Wellness Visits Care Gaps due: Medicare Annual Wellness Visit Colorectal Cancer Screening Patient Contacted: Spoke to patient/parent/or legal guardian Patient identified by name and : Yes Care Gap/HCC/Scheduling Wellness actions taken: Patient declined: Patient will call back later to schedule or asks for a call back Navigation Signature: Polly Abdullahi MA April 13, 2024 3:13 PM documented in this encounter [facility] 12-29-2023 History of Present illness Narrative . Respiratory Bowdle Note Patient name: Daiana Abdalla PCP: Melvi Amaral MD CC: Follow-up visit he states the Trelegy Ellipta is working well for him with HPI: Daianahalle Abdalla 68 year old adult infrequent smoker of cigarettes and marijuana with PMH significant for obesity, asthma, allergies, HLD, hypothyroidism with worsening of his asthma following COVID. PFTs showed small airways obstruction and elevated Yann. At [facility], he had stopped his Wixela 100/50 but stopped because he did not like the taste. He had worsening cough, wheezing. Not limited by SOB, patient walking 6 miles a day. At [facility], changed inhaled therapy to Trelegy Ellipta 200 ug and presents today for follow-up visit. He states the Trelegy Ellipta is working well for him with good control of his asthma symptoms. He did have side effect of constipation. He denies current shortness of breath, cough, sputum production, wheezing, chest pain. No need for his rescue inhaler. He admits to occasional smoking. More recently has had issues with acid reflux symptoms. In fact, he had frequent throat clearing during his examination today. He did not want to try OTC PPI or H2 fabio. Although he has known allergies, he currently denies any issues with sinus congestion or drainage or postnasal drip. DATA: SERVICE DATE: 11/25/2022 SERVICE TIME: 10:11 AM Oral Exhaled Nitric Oxide measurement: 12.0 (ppb) PAST MEDICAL HISTORY Diagnosis Date Allergic rhinitis due to allergen 10/2019 Remote allergy shots, over 25 years ago. Arthritis Asthma 10/2019 Childhood. Cancer (HCC) Skin GERD (gastroesophageal reflux disease) Neuropathy Feet. Other and unspecified hyperlipidemia Unspecified hypothyroidism ALLERGIES Allergen Reactions Augmentin [Amoxicil* Rash Keflex [Cephalexin] Hives Prednisone Intolerance Dizziness, tachycardia montelukast (SINGULAIR) 10 mg tablet Take 1 tablet by mouth daily at bedtime. levothyroxine (LEVOXYL) 175 mcg tablet Take 1 tablet by mouth once daily. Take on empty stomach. For Thyroid. meloxicam (MOBIC) 15 mg tablet Take 1 tablet by mouth once daily. Take with food. albuterol HFA (PROVENTIL HFA, VENTOLIN HFA) 90 mcg/actuation inhaler Inhale 2 Puffs as instructed every 6 hours as needed. fexofenadine HCl (CELY ALLERGY ORAL) Take 1 tablet by mouth as needed. wlthanbargb-wockftbin-hzqnwyuq (TRELEGY ELLIPTA) 200-62.5-25 mcg inhalation powder Inhale 1 Puff as instructed once daily. Social History Tobacco Use Smoking status: Some Days Types: Cigarettes Last attempt to quit: 2022 Years since quittin.1 Smokeless tobacco: Never Tobacco comments: Infrequent smoker of cigarette (3 or less per month), marijuana couple hits per week. Vaping Use Vaping Use: Never used Substance Use Topics Alcohol use: Not Currently Comment: Beer 3 times a week Drug use: Yes Frequency: 2.0 times per week Types: Marijuana Comment: week FAMILY HISTORY Problem Relation Age of Onset Prostate Cancer Father Asthma Father Severe. Thyroid Brother PAST SURGICAL HISTORY Procedure Laterality Date HERNIA REPAIR HX RPR UMBILICAL HRNA 5 YRS/> REDUCIBLE PMH, Social history, family history and surgical history reviewed and updated in EMR REVIEW OF SYSTEMS: CONSTITUTIONAL: No fevers, chills, nightsweats, unintended weight loss HEENT: Denies nasal congestion/sinus symptoms, problematic allergy problems postnasal drip EYES: No diplopia or blurry vision. CARDIOVASCULAR: No chest pain, dyspnea, palpitations,edema. PULM: See HPI GI: No dysphagia/odynophagia, hematochezia, melena. GERD and constipation INTEGUMENTARY: No new skin changes or rashes PHYSICAL EXAMINATION: Wt 187 lb (84.8kg) BP 124/62, pulse 80, RR 14, SpO2 96% on room air General Appearance: Age-appropriate male, NAD, frequent throat clearing. Skin: Skin color, texture, turgor normal, no suspicious rashes or lesions. Head: Normocephalic, no masses, lesions, tenderness or abnormalities. Eyes: Sclera, conjunctiva normal. Oropharynx: No oral lesions, no thrush, no posterior pharyngeal erythema or cobblestoning. Neck: No JVD, no masses. Lungs: Not labored, normal to percussion, no wheezes or crackles. Heart: Regular rate and rhythm, no murmurs or gallops. Extremities: No edema or clubbing. Lymph Nodes: No cervical lymphadenopathy and No supraclavicular lymphadenopathy. Assessment/Plan: 1. Mild asthma, intermittent, uncomplicated -He will continue on Trelegy Ellipta with as needed albuterol. Refilled prescriptions -Complete abstinence from tobacco recommended -Throat clearing noted during examination could be asthma related however, more likely related to his acid reflux disease. Although he has known allergies, he does not have current issues with sinus/nasal congestion and postnasal drip Exhaled nitric oxide at next visit 2. Current occasional smoker -Smoking cessation strongly encouraged 3. GERD -We discussed at length triggers for reflux including caffeine usage, alcohol usage, and timing of meals -We discussed antireflux measures including abstinence of caffeine and alcohol and tobacco. Limit eating/snacking 2 to 3 hours prior to bedtime. If conservative measures do not resolve his symptoms, he was instructed to obtain OTC Prilosec or Prevacid. Fifi Salcido MD Respiratory [facility] documented in this encounter [facility] 09-05-2023 Miscellaneous Notes The following approved medication requests have been transmitted electronically. Requested Prescriptions Pending Prescriptions Disp Refills levothyroxine (LEVOXYL) 175 mcg tablet 30 tablet 11 Sig: Take 1 tablet by mouth once daily. Take on empty stomach. For Thyroid. Austyn Boo APRN.CNP Patient has been identified by name and date of : Yes Requested Prescriptions Pending Prescriptions Disp Refills levothyroxine (LEVOXYL) 175 mcg tablet 30 tablet 11 Sig: Take 1 tablet by mouth once daily. Take on empty stomach. For Thyroid. ZHENG:06/23/23 No known appt scheduled. RX INSTRUCTIONS: Patient aware RX will be sent to pharmacy. No need to notify patient. Christie Gregg documented in this encounter [facility] 06-23-2023 Instructions Evelin Gregg Ma - 06/23/2023 3:17 PM EDT Recommend getting a Pneumonia vaccine and the shingles vaccine. You can get these vaccines at any local pharmacy. Continue with Mobic, may increase to daily usage if able to tolerate. Recommend also trying heat or ice on the hands for arthritis pain. documented in this encounter [facility] 06-23-2023 History of Present illness Narrative Chief Complaint Annual follow up HPI Daiana Loida Lianne is a 68 year old adult who presents here today for physical. He does not have advanced directive. Depression screening: denies feeling depressed or hopeless. Depression screening tool completed and reviewed. Based on score and interview, patient is not at risk for depression. Screening tool discussed with patient, and I recommended no further intervention at this time. Declined Pneumonia and Shingles vaccine at this time. Mini Cog test completed scored 5/5. No bowel, Gi, or urinary issues. Urine stream is a little weaker but is not an issue. He does get up once a night to urinate. Had colonoscopy done in June 2022. Bx done showing serrated 15 mm polyp, pt was advised he should have f/u colonoscopy in 6 months for surveillance purposes. Pt states he would prefer not to repeat colonoscopy at this particular stage. Pt advised to follow up with Specialist on that. No chest pains, dizziness, or SOB. His will check his BP occ at home. Depression/ALEXANDRA: stable, no medications at this time. Denies feeling depressed or hopeless. Lipid: Not currently taking any statins. He is watching diet, daily fruits/veg, minimal meat intake, walking 3-4 miles a day as well as riding bike and golfing. Asthma: Stable; follows with Pulmonary Dr. Fifi Salcido. Regimen of Singulair 10 mg daily, Wixela inhaler BID, Cely prn, and Albuterol prn. Thyroid: Taking Levoxyl 175 mg daily. No missed dosages. Neuropathy: is off and on, not any worse. Not on any medications. Used to see Dr. Díaz, Neurologist. Arthritis: is getting worse, he uses Mobic once every 2 weeks. No swelling of the joints. Thumbs are bad. He does have chronic pain in knees and hips. Past medical history, appointments, medications, allergies reviewed. Previous Medical History PAST MEDICAL HISTORY Diagnosis Date Allergic rhinitis due to allergen 10/2019 Remote allergy shots, over 25 years ago. Arthritis Asthma 10/2019 Childhood. Cancer (HCC) Skin Neuropathy Feet. Other and unspecified hyperlipidemia Unspecified hypothyroidism Previous Surgical History PAST SURGICAL HISTORY Procedure Laterality Date HERNIA REPAIR HX RPR UMBILICAL HRNA 5 YRS/> REDUCIBLE Family History FAMILY HISTORY Problem Relation Age of Onset Prostate Cancer Father Asthma Father Severe. Thyroid Brother Patient Allergies ALLERGIES Allergen Reactions Augmentin [Amoxicil* Rash Keflex [Cephalexin] Hives Prednisone Intolerance Dizziness, tachycardia Current Medications Current Outpatient Medications on File Prior to Visit Medication Sig fluticasone-salmeterol (WIXELA INHUB) 100-50 mcg/dose inhaler Inhale 1 Puff as instructed twice daily. montelukast (SINGULAIR) 10 mg tablet Take 1 tablet by mouth daily at bedtime. levothyroxine (LEVOXYL) 175 mcg tablet Take 1 tablet by mouth once daily. Take on empty stomach. For Thyroid. meloxicam (MOBIC) 15 mg tablet Take 1 tablet by mouth once daily. Take with food. albuterol HFA (PROVENTIL HFA, VENTOLIN HFA) 90 mcg/actuation inhaler Inhale 2 Puffs as instructed every 6 hours as needed. fexofenadine HCl (CELY ALLERGY ORAL) Take 1 tablet by mouth as needed. Current Facility-Administered Medications on File Prior to Visit Medication perflutren lipid microspheres 1.3 mL in NaCl (PF) 0.9% 10 mL injection (DEFINITY) sodium chloride 0.9 % (flush) 10 mL (BD POSIFLUSH) Social History Social History Tobacco Use Smoking status: Former Types: Cigarettes Quit date: 2022 Years since quittin.5 Smokeless tobacco: Never Tobacco comments: Infrequent smoker of cigarette (3 or less per month), marijuana couple hits per week. Vaping Use Vaping Use: Never used Substance Use Topics Alcohol use: Not Currently Comment: Beer 3 times a week Drug use: Yes Frequency: 2.0 times per week Types: Marijuana Comment: week EXAM: BP 122/70 Pulse 72 Resp 16 Wt 84.2 kg (185 lb 11.2 oz) BMI 30.71 kg/m General Appearance: Well appearing, alert, in no acute distress, well-hydrated, well nourished.. Neck: Supple, no adenopathy; thyroid symmetric, normal size. Lungs: Lungs clear to auscultation. No wheezing, rhonchi, rales.. Heart: RRR without murmur, gallop, or rubs. No ectopy. Hands: wilmer thumbs; no swelling, indicates pain in bilateral thumbs. Health Maintenance List ABDOMINAL AORTIC ANEURYSM SCREENING Never done PNEUMOCOCCAL: 65+(1 - PCV) Never done MAMMOGRAM Never done SHINGRIX VACCINE(1 of 2) Never done COVID-19 VACCINE(4 - Pfizer series) due on 10/15/2021 ADVANCE DIRECTIVE DISCUSSION due on 11/17/2022 DEPRESSION ASSESSMENT Never done COLORECTAL CANCER SCREENING due on 06/17/2023 ANNUAL PCP TEAM CHRONIC DISEASE VISIT due on 07/09/2023 INFLUENZA(1) due on 07/18/2023 PROSTATE CANCER SCREENING DISCUSSION due on 08/05/2023 DIABETES SCREEN due on 02/15/2025 LIPID SCREEN due on 02/15/2027 LIPID SCREEN due on 02/15/2027 DTAP,TDAP,TD(3 - Td or Tdap) due on 02/16/2032 BONE DENSITY Completed SPIROMETRY Completed HEPATITIS C SCREENING Completed Data reviewed None ASSESSMENT/PLAN: 1. Mixed hyperlipidemia - ICD9: 272.2, ICD10: E78.2 - Control undetermined, due for labs - Counseled on healthy diet and regular exercise - Discussed need for and benefit of weight loss. BMI 30.71 kg/(m^2) 2. Mild intermittent asthma without complication - ICD9: 493.90, ICD10: J45.20 - Mild intermittent asthma stable - Continue current medications - Avoidance of triggers recommended 3. Acquired hypothyroidism - ICD9: 244.9, ICD10: E03.9 Continue current medications. Get blood work done 4. Adjustment disorder with depressed mood - ICD9: 309.0, ICD10: F43.21 stable 5. Seasonal allergic rhinitis due to pollen - ICD9: 477.0, ICD10: J30.1 Stable Continue current medications. 6. Arthritis - ICD9: 716.90, ICD10: M19.90 Continue with Mobic Recommend heat or ice Follow up in 1 year or sooner if needed. Will notify of lab results. I agree with the Chief Complaint, ROS, and Past Histories independently gathered by the clinical ict support engineer and the remaining scribed note accurately describes my personal service to the patient. Medical Decision Making: Problems: Moderate: 2+ stable chronic illnesses Data: Unique test(s) ordered: 3+ Risk: Moderate: Drug management Medical Decision Making Level: 4 - Moderate Melvi Amaral MD The documentation for this note was completed by Evelin Gregg Ma acting as scribe for Melvi Amaral MD. June 23, 2023 2:44 PM. Evelin Gregg Ma documented in this encounter [facility] 05-26-2023 History of Present illness Narrative Images from the original note were not included. Patient: Daiana Abdalla PCP: Melvi Amaral MD CC: asthma HPI: Daaina Abdalla 68 year old male obese male recent former smoker with PMH significant for asthma, allergies, HLD, hypothyroidism, h/o COVID infection 05/2022 resulting in worsening of his asthma symptoms. Updated testing showed small airways obstruction and markedly elevated Yann. Increased ICS with plans to follow Yann. Also having issues with irregular heart rhythm. Cardiac echo normal. Arrhythmia resolved after completing oral steroids. Maintenance therapy with Flovent, Singulair and as needed Albuterol. Today, he states that he has a morning cough productive of white phlegm. No hemoptysis. Frequent wheezing that is relieved by Albuterol. Exertional dyspnea walking up inclines. Walks nightly 2-3 miles. Golfs twice weekly and walks the course. He will use his Albuterol prior to walking and golfing, but still finds himself wheezing and getting SOB. No chest pain or palpitations. No lower extremity edema. PAST MEDICAL HISTORY Diagnosis Date Allergic rhinitis due to allergen 10/2019 Remote allergy shots, over 25 years ago. Arthritis Asthma 10/2019 Childhood. Cancer (HCC) Skin Neuropathy Feet. Other and unspecified hyperlipidemia Unspecified hypothyroidism Allergies: Augmentin [Amoxicil* Rash Keflex [Cephalexin] Hives Prednisone Intolerance Comment:Dizziness, tachycardia montelukast (SINGULAIR) 10 mg tablet^Take 1 tablet by mouth daily at bedtime.^Disp: 30 tablet^Rfl: 11 levothyroxine (LEVOXYL) 175 mcg tablet^Take 1 tablet by mouth once daily. Take on empty stomach. For Thyroid.^Disp: 30 tablet^Rfl: 11 fluticasone (FLOVENT HFA) 110 mcg/actuation inhaler^Inhale 2 Puffs as instructed twice daily. VIA SPACER THEN RINSE AND GARGLE MOUTH WITH WATER.^Disp: 1 Each^Rfl: 11 meloxicam (MOBIC) 15 mg tablet^Take 1 tablet by mouth once daily. Take with food.^Disp: 30 tablet^Rfl: 1 albuterol HFA (PROVENTIL HFA, VENTOLIN HFA) 90 mcg/actuation inhaler^Inhale 2 Puffs as instructed every 6 hours as needed.^Disp: 1 Each^Rfl: 2 fexofenadine HCl (CELY ALLERGY ORAL)^Take 1 tablet by mouth as needed.^Disp: ^Rfl: Social History Tobacco Use Smoking status: Former Types: Cigarettes Quit date: 2022 Years since quittin.5 Smokeless tobacco: Never Tobacco comments: Infrequent smoker of cigarette (3 or less per month), marijuana couple hits per week. Vaping Use Vaping Use: Never used Substance Use Topics Alcohol use: Not Currently Comment: Beer 3 times a week Drug use: Yes Frequency: 2.0 times per week Types: Marijuana Comment: week Family History Problem Relation Age of Onset Prostate Cancer Father Asthma Father Severe. Thyroid Brother PAST SURGICAL HISTORY Procedure Laterality Date HERNIA REPAIR HX RPR UMBILICAL HRNA 5 YRS/> REDUCIBLE I reviewed the past medical history, family history, social history and surgical history with changes noted above and updated in EMR. IMMUNIZATIONS Prevnar - xx Pneumovax 23 - xx Influenza - xx COVID-19 - 08/20/2021, 02/02/2021, 01/12/2021 ROS: CONSTITUTIONAL: No fevers, chills, nightsweats, unintended weight loss HEENT: Occasional post nasal drip. No sinus congestion or allergy problems. CARDIOVASCULAR: No chest pain, dyspnea, palpitations, orthopnea, PND, edema. PULM: See HPI GI: No dysphagia/odynophagia, problematic reflux PHYSICAL EXAMINATION: BP (P) 104/68 Pulse (!) (P) 56 Resp (P) 17 Wt (P) 83 kg (183 lb) SpO2 (P) 98% BMI (P) 30.27 kg/m Gen: No acute distress. Cooperative with examination. HEENT: Normocephalic. Sclera, conjunctiva clear. Oral hygeine and dentition good. No thrush. Resp: No stridor, accessory respiratory muscle use, supra-sternal or intercostal retractions. No wheezes, crackles. CV: Regular rythm. Heart tones normal. Radial pulses normal. Abd: Non distended. MSK: No kyphoscoliosis. Ext: Warm and well perfused. No clubbing, cyanosis, edema. Skin: No rash, ecchymoses. Neuro: Mental status normal. Affect normal. No tremor. DATA: Oral Exhaled Nitric Oxide measurement (Previous Encounters) Test Date Oral Exhaled Nitric Oxide (ppb) 11/25/2022 12.0 07/26/2022 9.0 11/09/2019 83.0 (A) PFT 07/2022: Pulmonary function test show mild small airways obstruction that improves with bronchodilators CXR, 04/23/2018 IMPRESSION: No acute radiographic abnormality. Sequela of prior granulomatous exposure. Comparison: Correlation made to CT dated 07/23/2013 RESULT: Lines, tubes, and devices: None. Lungs and pleura: Subcentimeter calcified granulomas identified in the right and left midlung zone. No consolidation. No lung mass. No pleural effusion or pneumothorax. Cardiomediastinal silhouette: Normal cardiomediastinal silhouette. Other: Multilevel degenerative disease of the spine with bridging anterior osteophyte production. Echocardiogram, 08/12/2022 CONCLUSIONS: - Exam indication: Palpitations - The left ventricle is small. Left ventricular systolic function is normal. EF = 61 5% (2D 4-ch.) Grade I left ventricular diastolic dysfunction. - The right ventricle is normal in size. Right ventricular systolic function is normal. - There are no significant valvular abnormalities. - The patient has not had a prior CC echocardiographic exam for comparison. SSMENT/PLAN: 1. Mild intermittent asthma without complication - ICD9: 493.90, ICD10: J45.20 (primary diagnosis) Will change to [place] for 4-6 weeks. Albuterol HFA inhaler, 2 inhalations 10-15 minutes prior to activities associated with shortness of breath, and as needed for rescue relief of shortness of breath or wheezing, up to 4 times daily. Continue Singulair. - FLUTICASONE 100 MCG-SALMETEROL 50 MCG/DOSE BLISTR POWDR FOR INHALATION 2. Post-COVID syndrome - ICD9: 139.8, ICD10: U09.9 Portions of this documentation were copied and pasted from previous office visit notes in order to provide a cohesive continuity of the history. The note has been reviewed and edited and updated as necessary. Ronit Smith PA-C documented in this encounter [facility] 05-05-2023 History of Present illness Narrative POPULATION HEALTH NAVIGATION OUTREACH Action/FYI left for a return call Posibahart message sent Due for wellness and colonoscopy Patient Identified by Name and : NO Outreach Outcome/Action Unable to reach patient: Left message MyChart message sent Advance Directives sent Did you use a PCP flex slot to schedule this appointment? N/A Reason for Outreach Care Gap or Scheduling/Wellness visits Payer: Payor: [employer] AND BLUE [employer] / Plan: [employer] HMO / Product Type: HMO / Care Gap Reviewed:: Annual Wellness visit Colorectal Cancer Screening Reminder: Reminder note to check Health Maintenance for items below Health Maintenance items due: ABDOMINAL AORTIC ANEURYSM SCREENING Never done PNEUMOCOCCAL: 65+(1 - PCV) Never done SHINGRIX VACCINE(1 of 2) Never done COVID-19 VACCINE(4 - Booster for Pfizer series) due on 10/15/2021 ADVANCE DIRECTIVE DISCUSSION due on 11/17/2022 DEPRESSION ASSESSMENT Never done COLORECTAL CANCER SCREENING due on 06/17/2023 Navigation Signature: Avani Condon Population Health Navigator May 05, 2023 11:40 AM documented in this encounter [facility] 12-02-2022 Miscellaneous Notes Patient MyChart message requesting the following refill. Requested Prescriptions Pending Prescriptions Disp Refills montelukast (SINGULAIR) 10 mg tablet 30 tablet 11 Sig: Take 1 tablet by mouth daily at bedtime. Patient last appointment: 11/25/[address] [place] [address] Salcido Patient Phone numbers: [phone] (home) Request is for script(s) to be escript to pharmacy. Ariadna Moon documented in this encounter [facility] 11-25-2022 Instructions Fifi Salcido MD - 11/25/2022 10:29 AM EST Continue current dose of Flovent for two months. If feeling well, then decrease Flovent to one inhalation twice daily. documented in this encounter [facility] 11-25-2022 Procedure note Associated Ord er(s): NITRIC OXIDE, EXHALED RESPIRATORY THERAPY ORAL EXHALED NITRIC OXIDE SERVICE DATE: 11/25/2022 SERVICE TIME: 10:11 AM Oral Exhaled Nitric Oxide measurement: 12.0 (ppb) Normal: Adult 5-20 ppb, pediatric (<12 years) 5-15 ppb High Normal / Increased: Adult 20-35 ppb, pediatric (<12 years) 15-25 ppb Moderately raised exhaled Nitric Oxide may indicate underlying inflammation, but note that: Cold and influenza can raise exhaled Nitric Oxide and some patients have higher baseline exhaled Nitric Oxide levels than others. High: Adult >35 ppb, pediatric (<12 years) >25 ppb Indicative of ongoing eosinophilic inflammation. Symptomatic patient likely to respond to steroids. Possible causes (if already on steroids): Poor compliance, recent allergen exposure, steroid dose inadequate, and steroid resistance. Note that not all patients with high exhaled nitric oxide levels display symptoms. Oral Exhaled Nitric Oxide measurement (Previous Encounters) Test Date Oral Exhaled Nitric Oxide (ppb) 11/25/2022 12.0 07/26/2022 9.0 11/09/2019 83.0 (A) NAME: ARELI Diaz PATIENT NAME: Daiana Abdalla DATE: November 25, 2022 TIME: 10:11 AM documented in this encounter [facility] 11-25-2022 History of Present illness Narrative PULM FUNCTION SMARTBLOCK: Provider: Fifi Salcido MD Assisting Tech: ARELI Diaz Exhaled Nitric Oxide: 1 documented in this encounter [facility] 11-25-2022 History of Present illness Narrative Images from the original note were not included. . Respiratory Bowdle Note Patient name: Daiana Abdalla PCP: Melvi Amaral MD CC: Asthma HPI: Daiana Abdalla 67 year old obese male recent former smoker with PMH significant for asthma, allergies, HLD, hypothyroidism, h/o COVID infection 05/2022 resulting in worsening of his asthma symptoms. Updated testing showed small airways obstruction and markedly elevated Yann. Increased ICS with plans to follow Yann. Also having issues with irregular heart rhythm. Cardiac echo normal. Arrhythmia resolved after completing oral steroids. From a respiratory standpoint, he states he has been doing very well. No significant shortness of breath, cough, sputum production or wheezing. Exhaled nitric oxide level remains normal. No side effects with increased inhaled corticosteroid. He notes that he has osteopenia and is concerned about continued use of inhaled corticosteroids and his risk of developing osteoporosis. DATA: SERVICE DATE: 11/25/2022 SERVICE TIME: 10:11 AM Oral Exhaled Nitric Oxide measurement: 12.0 (ppb) PFT 07/2022: Pulmonary function test show mild small airways obstruction that improves with bronchodilators Imaging / Diagnostic Studies: CONCLUSIONS: - Exam indication: Palpitations - The left ventricle is small. Left ventricular systolic function is normal. EF = 61 5% (2D 4-ch.) Grade I left ventricular diastolic dysfunction. - The right ventricle is normal in size. Right ventricular systolic function is normal. - There are no significant valvular abnormalities. - The patient has not had a prior CC echocardiographic exam for comparison. PAST MEDICAL HISTORY Diagnosis Date Allergic rhinitis due to allergen 10/2019 Remote allergy shots, over 25 years ago. Arthritis Asthma 10/2019 Childhood. Cancer (HCC) Skin Neuropathy Feet. Other and unspecified hyperlipidemia Unspecified hypothyroidism ALLERGIES Allergen Reactions Augmentin [Amoxicil* Rash Keflex [Cephalexin] Hives Prednisone Intolerance Dizziness, tachycardia levothyroxine (LEVOXYL) 175 mcg tablet^Take 1 tablet by mouth once daily. Take on empty stomach. For Thyroid.^Disp: 30 tablet^Rfl: 11 fluticasone (FLOVENT HFA) 110 mcg/actuation inhaler^Inhale 2 Puffs as instructed twice daily. VIA SPACER THEN RINSE AND GARGLE MOUTH WITH WATER.^Disp: 1 Each^Rfl: 11 meloxicam (MOBIC) 15 mg tablet^Take 1 tablet by mouth once daily. Take with food.^Disp: 30 tablet^Rfl: 1 montelukast (SINGULAIR) 10 mg tablet^Take 1 tablet by mouth daily at bedtime.^Disp: 30 tablet^Rfl: 11 albuterol HFA (PROVENTIL HFA, VENTOLIN HFA) 90 mcg/actuation inhaler^Inhale 2 Puffs as instructed every 6 hours as needed.^Disp: 1 Each^Rfl: 2 fexofenadine HCl (CELY ALLERGY ORAL)^Take 1 tablet by mouth as needed.^Disp: ^Rfl: Social History Tobacco Use Smoking status: Former Types: Cigarettes Quit date: 2022 Years since quittin.0 Smokeless tobacco: Never Tobacco comments: Infrequent smoker of cigarette (3 or less per month), marijuana couple hits per week. Vaping Use Vaping Use: Never used Substance Use Topics Alcohol use: Not Currently Comment: Beer 3 times a week Drug use: Yes Frequency: 2.0 times per week Types: Marijuana Comment: week FAMILY HISTORY Problem Relation Age of Onset Prostate Cancer Father Asthma Father Severe. Thyroid Brother PAST SURGICAL HISTORY Procedure Laterality Date HERNIA REPAIR HX RPR UMBILICAL HRNA 5 YRS/> REDUCIBLE PMH, Social history, family history and surgical history reviewed and updated in EMR REVIEW OF SYSTEMS: CONSTITUTIONAL: No fevers, chills, nightsweats, unintended weight loss HEENT: Denies nasal congestion/sinus symptoms, allergy problems. CARDIOVASCULAR: No chest pain, dyspnea, palpitations, orthopnea, PND, edema. PULM: See HPI GI: No dysphagia/odynophagia, problematic reflux PHYSICAL EXAMINATION: BP 122/80 Pulse 64 Resp 17 Wt 189 lb (85.7kg) SpO2 95% General Appearance: Age-appropriate male, NAD Skin: Skin color, no suspicious rashes or lesions. Dry Head: Normocephalic, no masses, lesions, tenderness or abnormalities. Eyes: Sclera, conjunctiva normal Oropharynx: Normal dentition, no oral lesions or thrush Neck: No JVD, no masses, no adenopathy Lungs: Not labored, normal percussion, no wheezes or crackles Heart: Regular rate and rhythm, no murmurs gallops Extremities: No edema, no clubbing Assessment/Plan: 1. Mild intermittent asthma, uncomplicated -Will continue on Flovent 110 mcg 2 puffs twice a day for 2 more months. If he continues to do well then he can decrease his inhaled corticosteroid to 1 inhalation twice a day with the plan to eventually discontinue ICS if able. -Continue albuterol as needed -Continue smoking cessation Fifi Salcido MD Respiratory [facility]dle documented in this encounter [facility] 09-20-2022 Miscellaneous Notes The following approved medication requests have been transmitted electronically. Requested Prescriptions Pending Prescriptions Disp Refills levothyroxine (LEVOXYL) 175 mcg tablet 30 tablet 11 Sig: Take 1 tablet by mouth once daily. Take on empty stomach. For Thyroid. Austyn Boo APRN.EVELINA Patient has been identified by name and date of : Yes Last office visit in this department: 07/09/2022 Labs-02/15/22 NOV-none med filled 08/31/21 RX INSTRUCTIONS: Patient aware RX will be sent to pharmacy. No need to notify patient. Patient phones requesting refills as follows: Requested Prescriptions Pending Prescriptions Disp Refills levothyroxine (LEVOXYL) 175 mcg tablet 30 tablet 11 Sig: Take 1 tablet by mouth once daily. Take on empty stomach. For Thyroid. Please review and advise. Kendra Marcelo Pss documented in this encounter [facility] 07-26-2022 History of Present illness Narrative Images from the original note were not included. . Respiratory Bowdle Note Patient name: Daiana Abdalla PCP: Melvi Amaral MD CC: asthma HPI: Daiana Abdalla 67 year old obese male rare smoker with PMH significant for long standing asthma, allergic rhinitis, HLD, hypothyroidism previous patient of Dr. Simmons who presents for follow-up. At [facility] with Dr. Simmons, Singulair was continued and ICS added. Patient states he was doing well until early May when he developed severe coughing, shortness of breath, tachycardia, tested positive for COVID. He took Paxlovid but did not complete the course due to side effects of altered taste. He had diffuse body pruritus and received a course of steroids. Did not tolerate steroids well with feelings of anxiety, tachycardia and palpitations. After completing his course of steroids he had significant fatigue, stating that he felt like an old man. Since his COVID infection he has had more trouble with his asthma. He has persistent cough mainly in the morning productive of clear thick mucus. He is very active, playing golf and walks every day. Activity facilitates mucus production. He has had some intermittent wheezing. No significant dyspnea or chest pain. No edema. Previous exhaled nitric oxide level markedly elevated, today's level is normal. PFTs shows small airways obstruction which was not present on previous spirometry. DATA: RESPIRATORY THERAPY ORAL EXHALED NITRIC OXIDE SERVICE DATE: 11/09/2019 SERVICE TIME: 9:38 AM Oral Exhaled Nitric Oxide measurement: 83.0 (ppb) (A) RESPIRATORY THERAPY ORAL EXHALED NITRIC OXIDE SERVICE DATE: 07/26/2022 SERVICE TIME: 8:36 AM Oral Exhaled Nitric Oxide measurement: 9.0 (ppb) PFT today: Review of pulmonary function test shows small airways obstruction that improves postbronchodilator PFT 2019: Review of pulmonary function tests shows no obstruction PAST MEDICAL HISTORY Diagnosis Date Allergic rhinitis due to allergen 10/2019 Remote allergy shots, over 25 years ago. Arthritis Asthma 10/2019 Childhood. Cancer (HCC) Skin Neuropathy Feet. Other and unspecified hyperlipidemia Unspecified hypothyroidism ALLERGIES Allergen Reactions Augmentin [Amoxicil* Rash Keflex [Cephalexin] Hives Prednisone Intolerance Dizziness, tachycardia meloxicam (MOBIC) 15 mg tablet^Take 1 tablet by mouth once daily. Take with food.^Disp: 30 tablet^Rfl: 1 montelukast (SINGULAIR) 10 mg tablet^Take 1 tablet by mouth daily at bedtime.^Disp: 30 tablet^Rfl: 11 albuterol HFA (PROVENTIL HFA, VENTOLIN HFA) 90 mcg/actuation inhaler^Inhale 2 Puffs as instructed every 6 hours as needed.^Disp: 1 Each^Rfl: 2 levothyroxine (LEVOXYL) 175 mcg tablet^Take 1 tablet by mouth once daily. Take on empty stomach. For Thyroid.^Disp: 30 tablet^Rfl: 11 fexofenadine HCl (CELY ALLERGY ORAL)^Take 1 tablet by mouth as needed.^Disp: ^Rfl: fluticasone (FLOVENT HFA) 110 mcg/actuation inhaler^Inhale 2 Puffs as instructed twice daily. VIA SPACER THEN RINSE AND GARGLE MOUTH WITH WATER.^Disp: 1 Each^Rfl: 11 Social History Tobacco Use Smoking status: Light Smoker Types: Cigarettes Last attempt to quit: 10/08/2014 Years since quittin.8 Smokeless tobacco: Never Tobacco comments: Infrequent smoker of cigarette (3 or less per month), marijuana couple hits per week. Vaping Use Vaping Use: Never used Substance Use Topics Alcohol use: Not Currently Comment: Beer 3 times a week Drug use: Yes Frequency: 2.0 times per week Types: Marijuana Comment: week Pets: Dog FAMILY HISTORY Problem Relation Age of Onset Prostate Cancer Father Asthma Father Severe. Thyroid Brother PAST SURGICAL HISTORY Procedure Laterality Date HERNIA REPAIR HX RPR UMBILICAL HRNA 5 YRS/> REDUCIBLE PMH, Social history, family history and surgical history reviewed and updated in EMR REVIEW OF SYSTEMS: CONSTITUTIONAL: No fevers, chills, nightsweats, unintended weight loss. Persistent intermittent fatigue HEENT: Denies nasal congestion/sinus symptoms, problematic allergy problems. CARDIOVASCULAR: No chest pain, palpitations, orthopnea, PND, edema. PULM: See HPI GI: No dysphagia/odynophagia, problematic reflux, constipation,diarrhea. NEURO: No new balance problems, peripheral weakness/paresthesias or numbness of concern. No difficulty with concentration or memory PSY: No concerns regarding depression, anxiety INTEGUMENTARY: No current rash or pruritus PHYSICAL EXAMINATION: Pulse 83 Resp 12 Ht 5' 5.2 (1.66m) Wt 183 lb (83.0kg) SpO2 96% BMI 30.27 kg/(m^2). General Appearance: Age appropriate male, NAD Skin: Skin color, texture, turgor normal, no suspicious rashes or lesions. Head: Normocephalic, no masses, lesions, tenderness or abnormalities. Eyes: Sclera, conjunctiva normal Oropharynx: Adequate dentition, no oral thrush, copious amounts of mucus Neck: No JVD, no masses Lungs: Not labored, normal to percussion, no wheezes or crackles Heart: Intermittent irregular beat, no murmurs or gallops Extremities: No edema or clubbing Lymph Nodes: No cervical lymphadenopathy and No supraclavicular lymphadenopathy. Assessment/Plan: 1. Mild persistent asthma, uncomplicated -Asthma not controlled due to recent COVID infection -Increased ICS to 110 micrograms 2 puffs twice a day -Continue albuterol as needed -Exhaled nitric oxide level at next visit 2. Post COVID syndrome -See #1 -Unclear whether cardiac symptoms are COVID-related -Echocardiogram 3. Palpitations/irregular heart rate -See #2 Fifi Salcido MD Respiratory [facility]dle documented in this encounter [facility] 07-26-2022 Nurse Note Intake information documented in the prior visit with ARELI Diaz today. documented in this encounter [facility] 07-26-2022 Procedure note Associated Ord er(s): NITRIC OXIDE, EXHALED RESPIRATORY THERAPY ORAL EXHALED NITRIC OXIDE SERVICE DATE: 07/26/2022 SERVICE TIME: 8:36 AM Oral Exhaled Nitric Oxide measurement: 9.0 (ppb) Normal: Adult 5-20 ppb, pediatric (<12 years) 5-15 ppb High Normal / Increased: Adult 20-35 ppb, pediatric (<12 years) 15-25 ppb Moderately raised exhaled Nitric Oxide may indicate underlying inflammation, but note that: Cold and influenza can raise exhaled Nitric Oxide and some patients have higher baseline exhaled Nitric Oxide levels than others. High: Adult >35 ppb, pediatric (<12 years) >25 ppb Indicative of ongoing eosinophilic inflammation. Symptomatic patient likely to respond to steroids. Possible causes (if already on steroids): Poor compliance, recent allergen exposure, steroid dose inadequate, and steroid resistance. Note that not all patients with high exhaled nitric oxide levels display symptoms. Oral Exhaled Nitric Oxide measurement (Previous Encounters) Test Date Oral Exhaled Nitric Oxide (ppb) 07/26/2022 9.0 11/09/2019 83.0 (A) NAME: ARELI Diaz PATIENT NAME: Daiana Loida Abdalla DATE: July 26, 2022 TIME: 8:36 AM documented in this encounter [facility] 07-26-2022 History of Present illness Narrative PULM FUNCTION SMARTBLOCK: Provider: Fifi Salcido MD Assisting Tech: ARELI Diaz Spirometry w/BD: 1 Exhaled Nitric Oxide: 1 documented in this encounter [facility] 07-09-2022 History of Present illness Narrative Chief Complaint Patient presents with: Itching HPI Daiana Loida Abdalla is a 67 year old male who presents here today for Complaint(s) of itching all over body. Pt scheduled today for an acute visit via mychart. Pt reports all over body itching for the past week that keeps him up at night. Also has sores that are not non-healing. Itching - The itching started more so on b/l arms (forearms) about 3 weeks ago. He thought this was poison ramila on his arms. About a week ago he's started having all over body itching with rashes/spots that resolve quickly. Areas moving around all the time. If he keeps himself busy he tends to scratch less. Worse at night when not busy. Was stung by a Wasp on his right shoulder about a month ago with a scar still at that area, unsure if this is related. Denies any fever, chills or GI upset. Neuropathy - Dx a year ago with neuropathy, but has dealt with this for 1-2 years prior to his dx. Was dx by Neurology with peripheral neuropathy. States that his symptoms are very itchy feet and he does rub his feet on the foot of his bed for quite some time. Pt has tried soaking his finger in a solution with neosporin covered. This advice was given to him from a Provider for sores/spots on his fingers.. For the itching he's tried OTC Cortisone cream. Arthritis - Reports arthritis in hands/thumbs but seems at this time to be doing okay. Was Covid + back in May. Asking if stress can cause these issues. Past medical history, appointments, medications, allergies reviewed. Previous Medical History PAST MEDICAL HISTORY Diagnosis Date Allergic rhinitis due to allergen 10/2019 Remote allergy shots, over 25 years ago. Arthritis Asthma 10/2019 Childhood. Cancer (HCC) Neuropathy Feet. Other and unspecified hyperlipidemia Unspecified hypothyroidism Previous Surgical History PAST SURGICAL HISTORY Procedure Laterality Date HERNIA REPAIR HX RPR UMBILICAL HRNA 5 YRS/> REDUCIBLE Family History FAMILY HISTORY Problem Relation Age of Onset Prostate Cancer Father Asthma Father Severe. Thyroid Brother Patient Allergies ALLERGIES Allergen Reactions Augmentin [Amoxicil* Rash Keflex [Cephalexin] Hives Current Medications Current Outpatient Medications on File Prior to Visit Medication Sig meloxicam (MOBIC) 15 mg tablet Take 1 tablet by mouth once daily. Take with food. montelukast (SINGULAIR) 10 mg tablet Take 1 tablet by mouth daily at bedtime. albuterol HFA (PROVENTIL HFA, VENTOLIN HFA) 90 mcg/actuation inhaler Inhale 2 Puffs as instructed every 6 hours as needed. levothyroxine (LEVOXYL) 175 mcg tablet Take 1 tablet by mouth once daily. Take on empty stomach. For Thyroid. fluticasone (FLOVENT HFA) 44 mcg/actuation inhaler 1 inhalation twice daily every day, or as directed. fexofenadine HCl (CELY ALLERGY ORAL) Take 1 tablet by mouth as needed. No current facility-administered medications on file prior to visit. Social History Social History Tobacco Use Smoking status: Light Smoker Types: Cigarettes Last attempt to quit: 10/08/2014 Years since quittin.7 Smokeless tobacco: Never Tobacco comments: Infrequent smoker of cigarette (3 or less per month), marijuana couple hits per week. Vaping Use Vaping Use: Never used Substance Use Topics Alcohol use: Not Currently Comment: Beer 3 times a week Drug use: Yes Frequency: 2.0 times per week Types: Marijuana Comment: week EXAM: BP 118/72 (BP Site: Left Arm, BP Position: Sitting, BP Cuff Size: Regular Adult) Pulse 88 Resp 16 Wt 83 kg (183 lb) BMI 30.45 kg/m General Appearance: Well appearing, alert, in no acute distress, well-hydrated, well nourished.. Skin: areas of eczematous looking skin on hands, around umbilicus. Lungs: Lungs clear to auscultation. No wheezing, rhonchi, rales.. Heart: RRR without murmur, gallop, or rubs. No ectopy.. Health Maintenance List ABDOMINAL AORTIC ANEURYSM SCREENING Never done PNEUMOCOCCAL: 65+(1 - PCV) Never done SHINGRIX VACCINE(1 of 2) Never done COVID-19 VACCINE(4 - Booster for Pfizer series) due on 12/21/2021 COLORECTAL CANCER SCREENING due on 06/18/2022 INFLUENZA(1) due on 07/18/2022 DEPRESSION SCREENING due on 02/14/2023 ANNUAL PCP TEAM CHRONIC DISEASE VISIT due on 05/15/2023 PROSTATE CANCER SCREENING DISCUSSION due on 08/05/2023 DIABETES SCREEN due on 02/15/2025 LIPID SCREEN due on 02/15/2027 DTAP,TDAP,TD(3 - Td or Tdap) due on 02/16/2032 ADVANCE DIRECTIVE DISCUSSION Completed HEPATITIS C SCREENING Completed Data reviewed None ASSESSMENT/PLAN: 1. Itching - ICD9: 698.9, ICD10: L29.9 (primary diagnosis) - 9 day course of Prednisone 2. Eczema, unspecified type - ICD9: 692.9, ICD10: L30.9 - Oral Steriod tx -Prednisone burst - follow up if symptoms persist or worsen. 3. Rash - ICD9: 782.1, ICD10: R21 - As noted above - May check auto-immune labs in the future if not improved. 4. Neuropathy - ICD9: 355.9, ICD10: G62.9 - Cont to monitor 5. Acquired hypothyroidism - ICD9: 244.9, ICD10: E03.9 - Cont to monitor Pt prefers 9 day course of Steroid first before labs. If not improved, pt to update office via [employer]. Will have him check TSH, CBC, ROSINA to check for autoimmune disorder if he does not clear with prednisone I agree with the Chief Complaint, ROS, and Past Histories independently gathered by the clinical ict support engineer and the remaining scribed note accurately describes my personal service to the patient. Medical Decision Making: Problems: Moderate: New problem with uncertain prognosis Risk: Moderate: Drug management Medical Decision Making Level: 4 - Moderate Melvi Amaral MD . The documentation for this note was completed by Shannan Brennan Ma acting as scribe for Melvi Amaral MD. July 09, 2022 4:03 PM. Shannan Brennan Ma documented in this encounter [facility] 06-26-2022 Miscellaneous Notes Called patient to discuss path results, no answer, left Advised that he call Dr Prater's office back to discuss: Path benign, he should have follow up colonoscopy in 6 months for surveillance purposes Can be done locally or at [facility] Advised Dr Prater did send the patient the results with recommendations, but we are happy to discuss further with him as well. documented in this encounter [facility] 06-26-2022 Miscellaneous Notes Dear Daianahalle Abdalla Thank you for using [employer] and for your confidence in [facility]. Someone will be following up with you regarding your message. If you have an immediate need, please call your doctor's office. If it is an emergency, please call 911. Your Care Team documented in this encounter [facility] 06-17-2022 Nurse Note AMBULATORY PATIENT EDUCATION NOTE TOPIC: GI PROCEDURES: Colonoscopy with or without biopsies based on clinical findings READINESS TO LEARN INSTRUCTION PROVIDED TO: Patient and family member COGNITIVE ABILITY: Alert and oriented PTED MOTIVATION TO LEARN: Interested FAMILY SUPPORT: High - Very involved in pt care IPATIENT LEARNS BEST BY: Individual Instruction FACTORS AFFECTING LEARNING: None PHYSICAL LIMITATIONS AFFECTING LEARNING: None LEARNING RESPONSE METHOD OF INSTRUCTION: Individual instruction PATIENT / FAMILY RESPONSE: Verbalizes understanding of: WORSENING CONDITION-Signs and symptoms of a worsening condition that warrant a call to the physician FOLLOW-UP PLAN: Patient instructed to call with any further issues SUPPLEMENTAL MATERIAL: Procedure Discharge Instructions REFERRAL (RECOMMENDATION): None Electronically Signed By: Chelsey Parsons RN PRE OP LEARNING ASSESSMENT PROCEDURE/SURGERY: GI PROCEDURES: Colonoscopy READINESS TO LEARN COGNITIVE ABILITY: Alert and oriented MOTIVATION TO LEARN: Interested FAMILY SUPPORT: High - Very involved in pt care PATIENT LEARNS BEST BY: Individual Instruction FACTORS AFFECTING LEARNING: None PHYSICAL LIMITATIONS AFFECTING LEARNING: None Electronically Signed By: Chelsey Parsons RN In Department: GASTROENTEROLOGY documented in this encounter [facility] 06-17-2022 Miscellaneous Notes grounding placed at right flank. LOT#[id number]. Skin Intact. documented in this encounter [facility] 06-17-2022 History and physical note HISTORY AND PHYSICAL Daiana Abdalla, 67 year old male with appendiceal orifice polyp Current history and physical on file: No Is a new History and Physical required for today's visit? Yes Indication for procedure: History of colon polyps PROCEDURE(S) SCHEDULED FOR: Colonoscopy with or without biopsies and with or without removal of polyps or lesions, dilation (any means), treatment of bleeding (any means), based on clinical findings. EMR or ESD BASELINE BEHAVIOR: Calm BASELINE ORIENTATION: A & O x3 All medications and allergies reviewed: Yes Skin Assessment: Warm dry mucus membranes pink Airway/Respiratory Assessment: Airway: visualization of the uvula- Yes Mouth: opening greater than 2 fingerbreadths- Yes Neck: full range of motion- Yes Breath sounds clear/equal- Yes Cardiac Assessment: Regular rate and rhythm without murmur Abdominal Assessment: Abdomen soft, non-tender, no masses or organomegaly. Sedation Plan: Moderate Additional Comments: None Ezekiel Prater MD documented in this encounter [facility] 05-15-2022 History of Present illness Narrative . COLORECTAL SURGERY NEW VIRTUAL VISIT I had a virtual visit with Mr. Abdalla today. His local doctors have given his a diagnosis of colon polyp . HISTORY: Daiana Abdalla is a 67 year old male here today for the discussion of colon polyps. He has a history of colon polyps and was referred by Dr Melara for follow up colonoscopy within one year from his last, due to the nature of his colon polyps. He is here today to discuss. 05.16.2021 colonoscopy Findings: The perianal and digital rectal examinations were normal. Non-bleeding internal hemorrhoids were found. A few small-mouthed early formation of diverticula were found in the sigmoid colon. A discrete area of mildly nodular and pseudopolypoid mucosa was found in the cecum near the appendiceal orifice. Biopsies were taken with a cold forceps for histology. Verification of patient identification for the specimen was done by the it help desk technician. Estimated blood loss was minimal. Impression: - Non-bleeding internal hemorrhoids. - Diverticulosis in the sigmoid colon. - Nodular and pseudopolypoid mucosa in the cecum. Biopsied. Pathology FINAL DIAGNOSIS Colon, thickened cecal fold, biopsy (A) - Sessile serrated polyp. PAST MEDICAL HISTORY Diagnosis Date Allergic rhinitis due to allergen 10/2019 Remote allergy shots, over 25 years ago. Arthritis Asthma 10/2019 Childhood. Cancer (HCC) Neuropathy Feet. Other and unspecified hyperlipidemia Unspecified hypothyroidism PAST SURGICAL HISTORY Procedure Laterality Date HERNIA REPAIR HX RPR UMBILICAL HRNA 5 YRS/> REDUCIBLE Current Outpatient Medications Medication Sig Dispense Refill nirmatrelvir tablet 150 mg and ritonavir tablet 100 mg in a dose pack ([employer]) Administer TWO pink nirmatrelvir 150 mg tablets and ONE white ritonavir 100 mg tablet for a total of three tablets twice daily. 30 tablet 0 meloxicam (MOBIC) 15 mg tablet Take 1 tablet by mouth once daily. Take with food. 30 tablet 1 montelukast (SINGULAIR) 10 mg tablet Take 1 tablet by mouth daily at bedtime. 30 tablet 11 albuterol HFA (PROVENTIL HFA, VENTOLIN HFA) 90 mcg/actuation inhaler Inhale 2 Puffs as instructed every 6 hours as needed. 1 Each 2 levothyroxine (LEVOXYL) 175 mcg tablet Take 1 tablet by mouth once daily. Take on empty stomach. For Thyroid. 30 tablet 11 fluticasone (FLOVENT HFA) 44 mcg/actuation inhaler 1 inhalation twice daily every day, or as directed. 1 Inhaler 11 fexofenadine HCl (CELY ALLERGY ORAL) Take 1 tablet by mouth as needed. No current facility-administered medications for this visit. REVIEW OF SYSTEMS: PAIN ASSESSMENT: Negative for pain, history of chronic pain, or current treatment for a chronic pain condition. GENERAL: No weight loss, malaise or fevers RESPIRATORY: Negative for cough, hemoptysis, wheezing, COPD, dyspnea or shortness of breath CARDIOVASCULAR: Negative for chest pain, leg swelling, hypertension, CHF or palpitations GI: No nausea, vomiting, or diarrhea : No history of dysuria, frequency or incontinence OPERATIONS SUPERVISOR 2ND SHIFT: NA MUSCULOSKELETAL: Negative for joint pain or swelling, back pain or muscle pain SKIN: Negative for lesions, rash, and itching ENDOCRINE: Negative for cold or heat intolerance, polyuria, polydipsia and goiter NEURO: No history of headaches, syncope, paralysis, seizures or tremors PHYSICAL FINDINGS OF NOTE: Patient reported height 5'5 and weight 192 lbs General Normal, healthy, cooperative, in no acute distress Able to interact verbally by video conference Pulmonary respiratory effort normal Abdominal Not performed Motor patient seen sitting with Normal appearing strength and coordination Anorectal exam Not Performed Medical Decision Making: Assessment Assessment & Diagnosis: Daiana Abdalla is a 67 year old male here today for the surgical evaluation of a polypoid mucosa in the cecum Data Reviewed: Tests & Documents Reviewed/ordered: Review of Pathology Review of Procedures / Tests: Colonoscopy I have independently interpreted: colonoscopy report and pathology report I have discussed Daiana Abdalla's treatment plan and/or results with himself. Treatment plan: proceed with ESD on A31 with Dr Prater follow up after procedure for pathology results Risk of morbidity, mortality and/or complications of treatment plan: moderate documented in this encounter [facility] 05-15-2022 Miscellaneous Notes The following approved medication requests have been transmitted electronically. Pending Prescriptions Disp Refills NIRMATRELVIR 300 MG (150 MG X 2)-RITONAVIR 100 MG TABLET (EUA) 30 tablet 0 Sig: Administer TWO pink nirmatrelvir 150 mg tablets and ONE white ritonavir 100 mg tablet for a total of three tablets twice daily. JESSICA: No Zulay Valencia APRN.EVELINA Pt called in and reports [facility] does not have this medication available. Pt asking if provider could sent to [facility] in [place]. documented in this encounter [facility] 05-15-2022 History of Present illness Narrative Nirmatrelvir/Ritonavir (Paxlovid) Eligibility and Patient Discussion [facility] Formulary Restriction Criteria: Adult outpatients 18 years and older with ALL of the following: [x] Patient has positive SARS-COV-2 viral test (PCR or antigen test) during current illness [x] Patient has symptoms for 5 days or less [x] Not requiring hospitalization at any time for management of COVID-19 [x] Not requiring supplemental oxygen or a change in baseline supplemental oxygen[x] Not utilized for pre-exposure or post-exposure prophylaxis for prevention of COVID-19 [x] Patient does not have severe renal impairment (eGFR < 30 mL/min) or severe hepatic impairment (Child-Mcknight Class C) [x] Meeting patient criteria as below: [x] Older age (age >/= 65 years) OR [] 18 years and older with at least one of the following: [] Obesity or being overweight (BMI > 30) [] [] Chronic kidney diseases with eGFR > 30 mL/min and not requiring dialysis [] Diabetes [] Cardiovascular disease including hypertension [] COPD/other chronic respiratory disease [] Sickle cell disease [] Neurodevelopmental disorder (e.g. cerebral palsy) or other conditions that confer medical complexity (e.g. genetic or metabolic syndromes and severe congenital abnormalities) [] Medical related technological dependence (e.g. tracheostomy, gastrostomy, or positive pressure ventilation (not related to COVID-19)) OR [] 18 years and older with immunosuppressive disease or immunosuppressive therapy defined as: [] Immune-mediated inflammatory disease (rheumatoid arthritis, psoriatic arthritis, ankylosing spondylitis, psoriasis, systemic lupus erythematous, idiopathic inflammatory myositis, systemic sclerosis, primary systemic vasculitis, Sjogren s syndrome, inflammatory bowel disease) AND receiving at least one of the following: [] Prednisone (equivalent of > 10 mg daily at time of infusion) [] Rituximab [] 5-ASA derivatives (e.g., sulfasalazine, mesalamine) [] Solid Organ Transplant recipients [] Post-transplant AND on immunosuppression [] Cancer center patients AND at least one of the following: [] On treatment with anti-B cell monoclonal antibodies (e.g., Rituximab, Obinutuzumab, Ofatumumab) [] On treatment with high-intensity chemotherapy regimen [] Myeloablative hematopoietic stem cell transplant recipients within 6 months of transplant or on systemic therapy for jmvph-wdbvxb-dmht disease [] CAR T-cell/other cellular therapy recipients within 6 months of infusion [] Hypogammaglobulinemia due to cancer/hematologic disease or its treatment [] Primary immunodeficiency disorder (including common variable immuno immunodeficiency disorder and selective antibody deficiency disorder) Criteria above are met: Yes Date of Positive Test: 05/15/22 Date of Symptom Onset: 05/13/22 Patient received COVID vaccine: Yes Drug-Drug interactions reviewed: Yes. Drug interactions were identified and the following actions were taken None; not signficant. I have discussed the use of the investigational therapeutic, nirmatrelvir/ritonavir, for the treatment of mild to moderate COVID-19 and its use under Emergency Use Authorization with the patient. The patient was informed that nirmatrelvir/ritonavir is not an FDA approved drug and that it is authorized for use under this Emergency Use Authorization. The patient was also informed of the significant known benefits and potential risks of nirmatrelvir/ritonavir, and the extent to which such potential risks and benefits are unknown. The patient was informed that there is mandatory reporting of all medication errors and serious adverse events potentially related to nirmatrelvir/ritonavir treatment within 7 calendar days from the onset of the event and that events up to 28 days after completion of therapy need to be reported. The discussion included alternatives to receiving nirmatrelvir/ritonavir, including clinical trials, and potential the risks and benefits of those alternatives. The patient was provided electronically with the Fact Sheet for Patients, Parents and Caregivers. The patient was also instructed that in addition to the treatment with nirmatrelvir/ritonavir, he/she should continue to self-isolate and use infection control measures (e.g., wear mask, isolate, social distance, avoid sharing personal items, clean and disinfect high touch surfaces, and frequent handwashing) according to CDC guidelines. The patient stated understanding and gave verbal consent to proceeding with nirmatrelvir/ritonavir treatment. Melvi Amaral MD May 15, 2022 3:13 PM Chief Complaint Patient presents with: Covid Follow Up HPI:This Team Access Model visit is a virtual encounter. It required patient-provider interaction for the medical decision making as documented below. Patient was offered a virtual/telemedicine appointment in lieu of an office visit due to recommendations to reduce patient exposure to COVID-19. Patient is aware of limitations of performing the visit without a face to face visit in the office setting and agrees. Pt completing a same day virtual visit due to a Covid positive home test this am and interested in having antiviral medication. Pt states that symptoms started about two day ago but he thought this was related to his asthma. Notes increased coughing, runny nose and feeling tired. When he woke up this morning he felt much worse and wiped out. Notes that he is wheezing but states he has asthma. Denies sob, but is using his inhaler. Denies any chest pain or headache. Reports his temp today has been going up, 99.8. Rooming intake negative - Negative. Pharmacy - [facility] [place]. Past medical history, appointments, medications, allergies reviewed. Previous Medical History PAST MEDICAL HISTORY Diagnosis Date Allergic rhinitis due to allergen 10/2019 Remote allergy shots, over 25 years ago. Arthritis Asthma 10/2019 Childhood. Cancer (HCC) Neuropathy Feet. Other and unspecified hyperlipidemia Unspecified hypothyroidism Previous Surgical History PAST SURGICAL HISTORY Procedure Laterality Date HERNIA REPAIR HX RPR UMBILICAL HRNA 5 YRS/> REDUCIBLE Family History FAMILY HISTORY Problem Relation Age of Onset Prostate Cancer Father Asthma Father Severe. Thyroid Brother Patient Allergies ALLERGIES Allergen Reactions Augmentin [Amoxicil* Rash Keflex [Cephalexin] Hives Current Medications Current Outpatient Medications on File Prior to Visit Medication Sig meloxicam (MOBIC) 15 mg tablet Take 1 tablet by mouth once daily. Take with food. montelukast (SINGULAIR) 10 mg tablet Take 1 tablet by mouth daily at bedtime. albuterol HFA (PROVENTIL HFA, VENTOLIN HFA) 90 mcg/actuation inhaler Inhale 2 Puffs as instructed every 6 hours as needed. levothyroxine (LEVOXYL) 175 mcg tablet Take 1 tablet by mouth once daily. Take on empty stomach. For Thyroid. fluticasone (FLOVENT HFA) 44 mcg/actuation inhaler 1 inhalation twice daily every day, or as directed. fexofenadine HCl (CELY ALLERGY ORAL) Take 1 tablet by mouth as needed. No current facility-administered medications on file prior to visit. Social History Social History Tobacco Use Smoking status: Light Tobacco Smoker Last attempt to quit: 10/08/2014 Years since quittin.6 Smokeless tobacco: Never Used Tobacco comment: Infrequent smoker of cigarette (3 or less per month), marijuana couple hits per week. Vaping Use Vaping Use: Never used Substance Use Topics Alcohol use: Yes Comment: Beer 3 times a week Drug use: Yes Frequency: 2.0 times per week Types: Marijuana Comment: week EXAM: There were no vitals taken for this visit. General Appearance: Well appearing, alert, in no acute distress, well-hydrated, well nourished.. Health Maintenance List ABDOMINAL AORTIC ANEURYSM SCREENING Never done PNEUMOCOCCAL: 65+(1 - PCV) Never done SHINGRIX VACCINE(1 of 2) Never done COVID-19 VACCINE(4 - Booster for Pfizer series) due on 12/21/2021 COLORECTAL CANCER SCREENING due on 02/19/2022 DEPRESSION SCREENING due on 02/14/2023 ANNUAL PCP TEAM CHRONIC DISEASE VISIT due on 02/15/2023 PROSTATE CANCER SCREENING DISCUSSION due on 08/05/2023 DIABETES SCREEN due on 02/15/2025 LIPID SCREEN due on 02/15/2027 DTAP,TDAP,TD(3 - Td or Tdap) due on 02/16/2032 INFLUENZA Completed ADVANCE DIRECTIVE DISCUSSION Completed HEPATITIS C SCREENING Completed Data reviewed None ASSESSMENT/PLAN: 1. COVID - ICD9: 079.89, ICD10: U07.1 Will start Paxlovid; call if problems; continue symptomatic care - NIRMATRELVIR 300 MG (150 MG X 2)-RITONAVIR 100 MG TABLET (EUA) Melvi Amaral MD documented in this encounter [facility] 05-15-2022 Instructions Melvi Amaral MD - 05/15/2022 3:06 PM EDT FACT SHEET FOR PATIENTS, PARENTS, AND CAREGIVERS EMERGENCY USE AUTHORIZATION (EUA) OF PAXLOVID FOR CORONAVIRUS DISEASE 2019 (COVID-19) You are being given this Fact Sheet because your healthcare provider believes it is necessary to provide you with PAXLOVID for the treatment of rqou-ah-wfrzylyu coronavirus disease (COVID-19) caused by the SARS-CoV-2 virus. This Fact Sheet contains information to help you understand the risks and benefits of taking the PAXLOVID you have received or may receive. The U.S. Food and Drug Administration (FDA) has issued an Emergency Use Authorization (EUA) to make PAXLOVID available during the COVID-19 pandemic (for more details about an EUA please see What is an Emergency Use Authorization? at the end of this document). PAXLOVID is not an FDA-approved medicine in the [place]. Read this Fact Sheet for information about PAXLOVID. Talk to your healthcare provider about your options or if you have any questions. It is your choice to take PAXLOVID. What is COVID-19? COVID-19 is caused by a virus called a coronavirus. You can get COVID-19 through close contact with another person who has the virus. COVID-19 illnesses have ranged from very nwgf-ls-zzsmjs, including illness resulting in . While information so far suggests that most COVID-19 illness is mild, serious illness can happen and may cause some of your other medical conditions to become worse. Older people and people of all ages with severe, long lasting (chronic) medical conditions like heart disease, lung disease, and diabetes, for example seem to be at higher risk of being hospitalized for COVID-19. What is PAXLOVID? PAXLOVID is an investigational medicine used to treat blhl-dv-lsnvmhnm COVID-19 in adults and children [12 years of age and older weighing at least 88 pounds (40 kg)] with positive results of direct SARS-CoV-2 viral testing, and who are at high risk for progression to severe COVID-19, including hospitalization or . PAXLOVID is investigational because it is still being studied. There is limited information about the safety and effectiveness of using PAXLOVID to treat people with dlle-xd-ixekqyuy COVID-19. The FDA has authorized the emergency use of PAXLOVID for the treatment of ccky-vm-vmjhcisd COVID-19 in adults and children [12 years of age and older weighing at least 88 pounds (40 kg)] with a positive test for the virus that causes COVID-19, and who are at high risk for progression to severe COVID-19, including hospitalization or , under an EUA. 1 Revised: 01 February 2022 What should I tell my healthcare provider before I take PAXLOVID? Tell your healthcare provider if you: Have any allergies Have liver or kidney disease Are or plan to become Are a child Have any serious illnesses Tell your healthcare provider about all the medicines you take, including prescription and waop-ajw-kfreeia medicines, vitamins, and herbal supplements. Some medicines may interact with PAXLOVID and may cause serious side effects. Keep a list of your medicines to show your healthcare provider and pharmacist when you get a new medicine. You can ask your healthcare provider or pharmacist for a list of medicines that interact with PAXLOVID. Do not start taking a new medicine without telling your healthcare provider. Your healthcare provider can tell you if it is safe to take PAXLOVID with other medicines. Tell your healthcare provider if you are taking combined hormonal contraceptive. PAXLOVID may affect how your control pills work. Females who are able to become should use another effective alternative form of contraception or an additional barrier method of contraception. Talk to your healthcare provider if you have any questions about contraceptive methods that might be right for you. How do I take PAXLOVID? PAXLOVID consists of 2 medicines: nirmatrelvir and ritonavir. Take 2 pink tablets of nirmatrelvir with 1 white tablet of ritonavir by mouth 2 times each day (in the morning and in the evening) for 5 days. For each dose, take all 3 tablets at the same time. If you have kidney disease, talk to your healthcare provider. You may need a different dose. Swallow the tablets whole. Do not chew, break, or crush the tablets. Take PAXLOVID with or without food. Do not stop taking PAXLOVID without talking to your healthcare provider, even if you feel better. If you miss a dose of PAXLOVID within 8 hours of the time it is usually taken, take it as soon as you remember. If you miss a dose by more than 8 hours, skip the missed dose and take the next dose at your regular time. Do not take 2 doses of PAXLOVID at the same time. If you take too much PAXLOVID, call your healthcare provider or go to the nearest hospital emergency room right away. If you are taking a ritonavir-or cobicistat-containing medicine to treat hepatitis C or Human Immunodeficiency Virus (HIV), you should continue to take your medicine as prescribed by your healthcare provider. Talk to your healthcare provider if you do not feel better or if you feel worse after 5 days. Who should generally not take PAXLOVID? Do not take PAXLOVID if: You are allergic to nirmatrelvir, ritonavir, or any of the ingredients in PAXLOVID You are taking any of the following medicines: Alfuzosin Pethidine, propoxyphene Ranolazine Amiodarone, dronedarone, flecainide, propafenone, quinidine Colchicine Lurasidone, pimozide, clozapine Dihydroergotamine, ergotamine, methylergonovine Lovastatin, simvastatin Sildenafil (Revatio ) for pulmonary arterial hypertension (PAH) Triazolam, oral midazolam Apalutamide Carbamazepine, phenobarbital, phenytoin Rifampin Ethel s Wort (hypericum perforatum) Taking PAXLOVID with these medicines may cause serious or life-threatening side effects or affect how PAXLOVID works. These are not the only medicines that may cause serious side effects if taken with PAXLOVID. PAXLOVID may increase or decrease the levels of multiple other medicines. It is very important to tell your healthcare provider about all of the medicines you are taking because additional laboratory tests or changes in the dose of your other medicines may be necessary while you are taking PAXLOVID. Your healthcare provider may also tell you about specific symptoms to watch out for that may indicate that you need to stop or decrease the dose of some of your other medicines. What are the important possible side effects of PAXLOVID? Possible side effects of PAXLOVID are: Allergic Reactions. Allergic reactions can happen in people taking PAXLOVID, even after only 1 dose. Stop taking PAXLOVID and call your healthcare provider right away if you get any of the following symptoms of an allergic reaction: hives trouble swallowing or breathing swelling of the mouth, lips, or face throat tightness hoarseness skin rash Liver Problems. Tell your healthcare provider right away if you have any of these signs and symptoms of liver problems: loss of appetite, yellowing of your skin and the whites of eyes (jaundice), dark-colored urine, pale colored stools and itchy skin, stomach area (abdominal) pain. Resistance to HIV Medicines. If you have untreated HIV infection, PAXLOVID may lead to some HIV medicines not working as well in the future. Other possible side effects include: altered sense of taste diarrhea high blood pressure muscle aches These are not all the possible side effects of PAXLOVID. Not many people have taken PAXLOVID. Serious and unexpected side effects may happen. PAXLOVID is still being studied, so it is possible that all of the risks are not known at this time. What other treatment choices are there? Veklury (remdesivir) is FDA-approved for the treatment of guof-mr-araipvqi COVID-19 in certain adults and children. Talk with your doctor to see if Veklury is appropriate for you. Like PAXLOVID, FDA may also allow for the emergency use of other medicines to treat people with COVID-19. Go to https://www.fda.gov/emergency-prepa redness-andresponse/owy-wqywq-hhwmp emboa-udk-awzwgv-framework/emergenc e-xld-uycsdtypjtuhm for information on the emergency use of other medicines that are authorized by FDA to treat people with COVID-19. Your healthcare provider may talk with you about clinical trials for which you may be eligible. It is your choice to be treated or not to be treated with PAXLOVID. Should you decide not to receive it or for your child not to receive it, it will not change your standard medical care. What if I am or ? There is immunopathologist treating women or mothers with PAXLOVID. For a mother and unborn baby, the benefit of taking PAXLOVID may be greater than the risk from the treatment. If you are , discuss your options and specific situation with your healthcare provider. It is recommended that you use effective barrier contraception or do not have sexual activity while taking PAXLOVID. If you are , discuss your options and specific situation with your healthcare provider. How do I report side effects with PAXLOVID? Contact your healthcare provider if you have any side effects that bother you or do not go away. Report side effects to FDA MedWatch at www.fda.gov/medwatch or call 4-992-TUS5192 or you can report side effects to [employer]. at the contact information provided below. Website Fax number Telephone number [employer] How should I store PAXLOVID? Store PAXLOVID tablets at room temperature, between 68?F to 77?F (20?C to 25?C). How can I learn more about COVID-19? Ask your healthcare provider. Visit https://www.cdc.gov/COVID19. Contact your local or state public health department. What is an Emergency Use Authorization (EUA)? The [place] FDA has made PAXLOVID available under an emergency access mechanism called an Emergency Use Authorization (EUA). The EUA is supported by a [employer] Former of Health and Human Service (HHS) declaration that circumstances exist to justify the emergency use of drugs and biological products during the COVID-19 pandemic. PAXLOVID for the treatment of ejjq-he-wfjlrhhf COVID-19 in adults and children [12 years of age and older weighing at least 88 pounds (40 kg)] with positive results of direct SARS-CoV-2 viral testing, and who are at high risk for progression to severe COVID-19, including hospitalization or , has not undergone the same type of review as an FDA-approved product. In issuing an EUA under the COVID-19 public health emergency, the FDA has determined, among other things, that based on the total amount of scientific evidence available including data from adequate and well-controlled clinical trials, if available, it is reasonable to believe that the product may be effective for diagnosing, treating, or preventing COVID-19, or a serious or life-threatening disease or condition caused by COVID-19; that the known and potential benefits of the product, when used to diagnose, treat, or prevent such disease or condition, outweigh the known and potential risks of such product; and that there are no adequate, approved, and available alternatives. All of these criteria must be met to allow for the product to be used in the treatment of patients during the COVID-19 pandemic. The EUA for PAXLOVID is in effect for the duration of the COVID-19 declaration justifying emergency use of this product, unless terminated or revoked (after which the products may no longer be used under the EUA). Additional Information For general questions, visit the website or call the telephone number provided below. Website Telephone number www.[employer] (9-593-Y53-PACK) You can also go to www.[employer]NOWBOX or call for more information. Pfizer Distributed by [employer] [place] [place] [address] [id number] Revised: 01 February 2022 documented in this encounter [facility] 05-15-2022 Miscellaneous Notes Pt called and notified that an appt has been scheduled, agreeable to appt. Shannan Brennan Ma Pt will need VV in order to receive Paxlovid antiviral medication. I've scheduled a VV at 3:00 pm today with PCP. Update pt via [employer] about appt and instructions. Pt to confirm appt with PCP at 3:00 pm. Shannan Brennan Ma Patient calling he did COVID home test this morning and was positive. Patient said his asthma has been much worse past 2 days, and he is very fatigued. Patient is asking about getting the antiviral rx? Patient uses [facility] for his pharmacy. Please advise documented in this encounter [facility] 04-10-2021 Telephone encounter Note Colonoscopy scheduled 05-16-21 Mailed Miralax/Dulcolax Bowel Prep Instructions [facility] OPEN ACCESS QUESTIONNAIRE 1. Are you currently having any new or unusual stomach/gastrointestinal issues at this time such as constipation, diarrhea, abdominal pain, rectal bleeding etc?No 2. Do you have any difficulty swallowing? No 3. Do you have any implanted devices such as a defibrillator, pacemaker, cardiac stents or deep brain stimulator? No 4. Do you take any Blood thinners such as Coumadin, Plavix, Xarelto, Eliquis, Brilinta or any other blood thinner? No 5. Do you have any new or past cardiac (heart) or pulmonary (lung) issues? No 6. Do you currently use any oxygen? No 7. Have you been hospitalized in the past 6 weeks? No 8. Have you had difficulty with anesthesia previously re: Difficult intubation? No Other difficulty or allergic reaction to anesthesia other than post op N/V? No 9. Are you on dialysis? No 10. Do you have any bleeding disorders such as hemophilia or Factor 5? No 11. Are you an Insulin Dependent Diabetic? No IF ANY OF THE TOP ELEVEN QUESTIONS ARE ANSWERED YES PLEASE SCHEDULE THE PATIENT FOR A CONSULT. advised 12. Is the patient's BMI 40 or greater? NA:There is no height or weight on file to calculate BMI.. 13. Do you take any narcotics or anti-Anxiety medications? No 14. Do you use any illegal or recreational drugs including marijuana? Yes / occ marijuana 15. Any alcohol use: YES: What type of alcohol, how much and how often do you drink? : 6 beers per week 16. Have you been diagnosed with chronic liver disease such as hepatitis or cirrhosis? No 17. Do you have a seizure disorder? No 18. Do you have ulcerative colitis or Crohn's disease? No 19. Are you or could you be ? No 20. Any other important health information we should be made aware of prior to your colonoscopy? No To be completed by LIP: Did patient have MAC anesthesia with a previous endoscopy procedure? No Patient appropriate for Open Access Colonoscopy: Yes: appropriate for Open Access Procedure Checklist: Prior to closing the encounter: Complete questionnaire: Yes Confirm Prep order has been Ordered/Pended: Yes. ? Patient's procedure could be delayed if not given the script for the prep. Please ensure the prep is escripted to pharmacy or printed. Instructions for the prep will print upon filing or pending this smartset. Please send all open access questionnaires to [facility] Sched Pool #[id number] [facility] 04-10-2021 Miscellaneous Notes Colonoscopy scheduled 05-16-21 Mailed Miralax/Dulcolax Bowel Prep Instructions [facility] OPEN ACCESS QUESTIONNAIRE 1. Are you currently having any new or unusual stomach/gastrointestinal issues at this time such as constipation, diarrhea, abdominal pain, rectal bleeding etc?No 2. Do you have any difficulty swallowing? No 3. Do you have any implanted devices such as a defibrillator, pacemaker, cardiac stents or deep brain stimulator? No 4. Do you take any Blood thinners such as Coumadin, Plavix, Xarelto, Eliquis, Brilinta or any other blood thinner? No 5. Do you have any new or past cardiac (heart) or pulmonary (lung) issues? No 6. Do you currently use any oxygen? No 7. Have you been hospitalized in the past 6 weeks? No 8. Have you had difficulty with anesthesia previously re: Difficult intubation? No Other difficulty or allergic reaction to anesthesia other than post op N/V? No 9. Are you on dialysis? No 10. Do you have any bleeding disorders such as hemophilia or Factor 5? No 11. Are you an Insulin Dependent Diabetic? No IF ANY OF THE TOP ELEVEN QUESTIONS ARE ANSWERED YES PLEASE SCHEDULE THE PATIENT FOR A CONSULT. advised 12. Is the patient's BMI 40 or greater? NA:There is no height or weight on file to calculate BMI.. 13. Do you take any narcotics or anti-Anxiety medications? No 14. Do you use any illegal or recreational drugs including marijuana? Yes / occ marijuana 15. Any alcohol use: YES: What type of alcohol, how much and how often do you drink? : 6 beers per week 16. Have you been diagnosed with chronic liver disease such as hepatitis or cirrhosis? No 17. Do you have a seizure disorder? No 18. Do you have ulcerative colitis or Crohn's disease? No 19. Are you or could you be ? No 20. Any other important health information we should be made aware of prior to your colonoscopy? No To be completed by LIP: Did patient have MAC anesthesia with a previous endoscopy procedure? No Patient appropriate for Open Access Colonoscopy: Yes: appropriate for Open Access Procedure Checklist: Prior to closing the encounter: Complete questionnaire: Yes Confirm Prep order has been Ordered/Pended: Yes. ? Patient's procedure could be delayed if not given the script for the prep. Please ensure the prep is escripted to pharmacy or printed. Instructions for the prep will print upon filing or pending this smartset. Please send all open access questionnaires to [facility] Sched Pool #[id number] Order filed Melvi Amaral MD Asked additional info from pt regarding preference to stay w/in [facility] to complete or if he had another Provider in mind. If staying w/in [facility] will do open access questionnaire and route appropriately. Shannan Brennan MA documented in this encounter [facility] 04-10-2021 Telephone encounter Note Order filed Melvi Amaral MD [facility] 04-09-2021 Telephone encounter Note [facility] 03-30-2021 Telephone encounter Note Asked additional info from pt regarding preference to stay w/in [facility] to complete or if he had another Provider in mind. If staying w/in [facility] will do open access questionnaire and route appropriately. Shannan Brennan MA [facility] Evaluation note Diagnosis Uncomplicated asthma, unspecified asthma severity, unspecified whether persistent- Primary [facility]- [facility] History of colonic polyps Personal history of colonic polyps [facility] Diagnosis Polyp of colon, unspecified part of colon, unspecified type- Primary [facility] Diagnosis Polyp of colon, unspecified part of colon, unspecified type [facility] Diagnosis Itching- Primary Unspecified pruritic disorder Rash Rash and other nonspecific skin eruption Neuropathy Mononeuritis of unspecified site Acquired hypothyroidism Unspecified hypothyroidism documented in this encounter [facility] note* Diagnosis Uncomplicated asthma, unspecified asthma severity, unspecified whether persistent documented in this encounter [facility] note* Diagnosis Uncomplicated asthma, unspecified asthma severity, unspecified whether persistent documented in this encounter [facility] note* Diagnosis Mild persistent asthma without complication- Primary Unspecified asthma Post-COVID syndrome Palpitations documented in this encounter [facility] note* Diagnosis COVID documented in this encounter [facility] note* Diagnosis Mild persistent asthma without complication Unspecified asthma documented in this encounter [facility] note* Diagnosis Mild intermittent asthma without complication- Primary Unspecified asthma documented in this encounter [facility] note* Diagnosis Mild intermittent asthma without complication- Primary Unspecified asthma Post-COVID syndrome documented in this encounter [facility] note* Diagnosis Acquired hypothyroidism- Primary Unspecified hypothyroidism Mixed hyperlipidemia Mild intermittent asthma without complication Unspecified asthma Seasonal allergic rhinitis due to pollen Arthritis Arthropathy, unspecified, site unspecified documented in this encounter [facility] note* Diagnosis Mild intermittent asthma without complication- Primary Unspecified asthma Current occasional smoker Tobacco use disorder Gastroesophageal reflux disease, unspecified whether esophagitis present documented in this encounter [facility] note* Diagnosis Special screening for malignant neoplasms, colon- Primary documented in this encounter [facility] note* Diagnosis Mild intermittent asthma without complication- Primary Unspecified asthma documented in this encounter [facility] note* Diagnosis Mild persistent asthma without complication- Primary Unspecified asthma documented in this encounter [facility] note* Diagnosis Medicare annual wellness visit, subsequent- Primary Routine general medical examination at a health care facility Arthritis Arthropathy, unspecified, site unspecified Screening for depression Encounter for screening examination for other mental health and behavioral disorders Mixed hyperlipidemia Acquired hypothyroidism Unspecified hypothyroidism Screening for prostate cancer Special screening for malignant neoplasm of prostate documented in this encounter [facility] note* Diagnosis Screen for colon cancer- Primary Special screening for malignant neoplasms, colon History of colonic polyps Personal history of colonic polyps documented in this encounter [facility] note* Diagnosis Encounter for screening for malignant neoplasm of colon- Primary Special screening for malignant neoplasms, colon Screen for colon cancer Special screening for malignant neoplasms, colon History of colonic polyps Personal history of colonic polyps documented in this encounter [facility] note* Diagnosis Dizziness- Primary Dizziness and giddiness Syncope and collapse Mild intermittent asthma, unspecified whether complicated (HCC) documented in this encounter [facility] note* Diagnosis Syncope and collapse documented in this encounter [facility] for referral (narrative)* Outpatient Procedure (Routine) - Pending Review Specialty Diagnoses / Procedures Referred By Contac t Referred To Contact [facility] Diagnoses Uncomplicated asthma, unspecified asthma severity, unspecified whether persistent Procedures SPIROMETRY - BASELINE AND POST DILATOR BRNCDILAT RSPSE SPMTRY PRE&POST-BRNCDILAT ADMN Fifi Salcido MD [address] [facility] [place] [address] [address] Referral ID Status Reason Start Date Expiration Date Visits Requested Visits Authorized [id number] Pending Review Auto-Generat ed Referral 04/23/2022 05/22/2023 1 1 * Outpatient Procedure (Routine) - Pending Review Specialty Diagnoses / Procedures [facility] Diagnoses Uncomplicated asthma, unspecified asthma severity, unspecified whether persistent Procedures NITRIC OXIDE, EXHALED NITRIC OXIDE GAS DETERMINATION Fifi Salcido MD [address] [facility] [place] [address] [place] [address] Referral ID Status Reason Start Date Expiration Date Visits Requested Visits Authorized [id number] Pending Review Auto-Generat ed Referral 04/23/2022 05/22/2023 1 1 [facility] for referral (narrative)* Outpatient Procedure (Routine) - Pending Review Specialty Diagnoses / Procedures Referred By Contac t Referred To [facility] Diagnoses Polyp of colon, unspecified part of colon, unspecified type Procedures COLONOSCOPY DIAGNOSTIC COLONOSCOPY FLX DX W/COLLJ SPEC WHEN PFRMD Meg Montoya MD [address] [place] [id number] [place] [id number] Referral ID Status Reason Start Date Expiration Date Visits Requested Visits Authorized [id number] Pending Review Auto-Generat ed Referral 05/16/2022 05/16/2023 1 1 [facility] for referral (narrative)* Outpatient Procedure (Routine) - Closed Specialty Diagnoses / Procedures Referred By Contac t Referred To Contact [facility] Diagnoses Polyp of colon, unspecified part of colon, unspecified type Procedures COLONOSCOPY DIAGNOSTIC COLONOSCOPY FLX DX W/COLLJ SPEC WHEN PFMeg Soto MD [address] [place] [address] [place] [address] Referral ID Status Reason Start Date Expiration Date V isits Requested Visits Authorized [id number] Closed Auto-Generate d Referral 05/16/2022 05/16/2023 1 1 [facility] for referral (narrative)* Outpatient Procedure (Routine) - Authorized Specialty Diagnoses / Procedures Referred By Contac t Referred To [facility] Diagnoses Mild persistent asthma without complication Procedures NITRIC OXIDE, EXHALED NITRIC OXIDE GAS DETERMINATION Fifi Salcido MD [facility] [place] [address] [address] [place] [address] [place] [address] Referral ID Status Reason Start Date Expiration Date Visits Requested Visits Authorized [id number] Authorized Auto-Generat ed Referral 07/26/2022 08/25/2023 1 1 * Outpatient Procedure (Routine) - Authorized Specialty Diagnoses / Procedures Referred By Contac t Referred To Contact [facility] Diagnoses Palpitations Procedures ECHO ECHO TTHRC R-T 2D W/WOM-MODE COMPL SPEC&COLR D Fifi Salcido MD [address] [place] [address] [facility] [place] [address] [place] [id number] Referral ID Status Reason Start Date Expiration Date Visits Requested Visits Authorized [id number] Authorized Auto-Generat ed Referral 07/26/2022 07/26/2023 1 1 [facility] for referral (narrative)* Outpatient Procedure (Routine) - Authorized Specialty Diagnoses / Procedures Referred By Contac t Referred To [facility] Diagnoses Asthma, unspecified asthma severity, unspecified whether complicated, unspecified whether persistent Procedures NITRIC OXIDE, EXHALED NITRIC OXIDE GAS DETERMINATION Fifi Salcido MD [address] [place] [address] [facility] [place] [address] [place] [address] Referral ID Status Reason Start Date Expiration Date Visits Requested Visits Authorized [id number] Authorized Auto-Generat ed Referral 12/29/2023 01/27/2025 1 1 [facility] for referral (narrative)* Outpatient Procedure (Routine) - Authorized Specialty Diagnoses / Procedures Referred By Contac t Referred To Contact [facility] Diagnoses Screen for colon cancer History of colonic polyps Procedures COLONOSCOPY SCREENING COLONOSCOPY FLX DX W/COLLJ SPEC WHEN Christina Orellana APRN.CNP [address] [place] [address] [facility] [place] [address] [place] [address] Referral ID Status Reason Start Date Expiration Date Visits Requested Visits Authorized [id number] Authorized Auto-Generat ed Referral 09/21/2024 09/21/2025 1 1 [facility] for referral (narrative)* Outpatient Procedure (Routine) - Closed Specialty Diagnoses / Procedures Referred By Joshua t Referred To Contact [facility] Diagnoses Screen for colon cancer History of colonic polyps Procedures COLONOSCOPY SCREENING COLONOSCOPY FLX DX W/COLLJ SPEC WHEN Christina Orellana APRN.CERTIFIED PHYSICIAN'S ASSISTANT [address] [place] [address] [address] Referral ID Status Reason Start Date Expiration Date V isits Requested Visits Authorized [id number] Closed Auto-Generate d Referral 09/21/2024 09/21/2025 1 1 [facility] for visit Narrative* Outpatient Procedure (Routine) - Closed Specialty Diagnoses / Procedures Referred By Joshua t Referred To Contact [facility] Diagnoses Polyp of colon, unspecified part of colon, unspecified type Procedures COLONOSCOPY DIAGNOSTIC COLONOSCOPY FLX DX W/COLLJ SPEC WHEN Meg Zuluaga MD [address] [id number] [place] [phone] Referral ID Status Reason Start Date Expiration Date V isits Requested Visits Authorized [id number] Closed Auto-Generate d Referral 05/16/2022 05/16/2023 1 1 [facility] for visit Narrative* Outpatient Procedure (Routine) - Closed Specialty Diagnoses / Procedures [facility] To Contact [facility] Diagnoses Screen for colon cancer History of colonic polyps Procedures COLONOSCOPY SCREENING COLONOSCOPY FLX DX W/COLLJ SPEC WHEN Christina Orellana APRN.CERTIFIED PHYSICIAN'S ASSISTANT [address] [place] [address] [address] Referral ID Status Reason Start Date Expiration Date V isits Requested Visits Authorized [id number] Closed Auto-Generate d Referral 09/21/2024 09/21/2025 1 1 [facility] Summary Purpose Family History No Family History Records FoundNo Family History Records FoundNo Family History Records Found Advance Directives No Advanced Directives Records FoundDocuments on File Type Date Recorded Patient Customer Relations Advisor Expl anation Advance Directive(s) 05/16/2021 9:17 AM Advance Directive(s) 04/30/2021 8:56 AM Documents on File Type Date Recorded Patient Customer Relations Advisor Expl anation Advance Directive(s) 05/16/2021 9:17 AM Advance Directive(s) 04/30/2021 8:56 AM Medications Administered Section Inactive Administered Medications - up to 3 most recent administrations Medication Order MAR Action Action Date Dose Rate Site fentaNYL 50 mcg/mL injection (SUBLIMAZE) INTRAVENOUS, NEEDED, Starting on Fri06/17/22 at 1523, Until Fri06/17/22 at 1539 Given 06/17/2022 3:39 PM EDT 25 mcg Given 06/17/2022 3:23 PM EDT 50 mcg lactated ringers iv infusion 30 mL/hr, INTRAVENOUS, CONTINUOUS, Starting on Fri06/17/22 at 1500, Until Fri06/18/22 at 0403, Preprocedure New Bag/Syringe/Bottle 06/17/2022 2:59 PM EDT 30 mL/hr 30 mL/hr midazolam (PF) injection (VERSED) INTRAVENOUS, NEEDED, Starting on Fri06/17/22 at 1523, Until Fri06/17/22 at 1539 Given 06/17/2022 3:39 PM EDT 1 mg Given 06/17/2022 3:23 PM EDT 3 mg Additional Source Comments (unrecognized sect ion and content) No Status Records FoundNo Status Records FoundNo Status Records Found INFORMATION SOURCE (unrecogn ized section and content) DATE CREATED AUTHOR [facility] DATE CREATED AUTHOR AUTHOR'S ORGANIZ ATION 07/05/2025 [facility] DATE CREATED AUTHOR AUTHOR'S ORGANIZ ATION 09/12/2025 [facility] Source Comments (unrecognize d section and content) In the event this informatio n is protected by the Federal Confidentiality of Alcohol and Drug Abuse Patient Records regulations: The Federal rules restrict any use of the information to criminally investigate or prosecute any alcohol or drug abuse patient.[facility] Center[facility] the event this information is protected by the Federal Confidentiality of Alcohol and Drug Abuse Patient Records regulations: The Federal rules restrict any use of the information to criminally investigate or prosecute any alcohol or drug abuse patient.[facility] CenterIn the event this information is protected by the Federal Confidentiality of Alcohol and Drug Abuse Patient Records regulations: The Federal rules restrict any use of the information to criminally investigate or prosecute any alcohol or drug abuse patient.[facility] CenterIn the event this information is protected by the Federal Confidentiality of Alcohol and Drug Abuse Patient Records regulations: The Federal rules restrict any use of the information to criminally investigate or prosecute any alcohol or drug abuse patient.[facility] CenterIn the event this information is protected by the Federal Confidentiality of Alcohol and Drug Abuse Patient Records regulations: The Federal rules restrict any use of the information to criminally investigate or prosecute any alcohol or drug abuse patient.[facility] CenterIn the event this information is protected by the Federal Confidentiality of Alcohol and Drug Abuse Patient Records regulations: The Federal rules restrict any use of the information to criminally investigate or prosecute any alcohol or drug abuse patient.[facility] CenterIn the event this information is protected by the Federal Confidentiality of Alcohol and Drug Abuse Patient Records regulations: The Federal rules restrict any use of the information to criminally investigate or prosecute any alcohol or drug abuse patient.[facility] CenterIn the event this information is protected by the Federal Confidentiality of Alcohol and Drug Abuse Patient Records regulations: The Federal rules restrict any use of the information to criminally investigate or prosecute any alcohol or drug abuse patient.[facility] CenterIn the event this information is protected by the Federal Confidentiality of Alcohol and Drug Abuse Patient Records regulations: The Federal rules restrict any use of the information to criminally investigate or prosecute any alcohol or drug abuse patient.[facility] CenterIn the event this information is protected by the Federal Confidentiality of Alcohol and Drug Abuse Patient Records regulations: The Federal rules restrict any use of the information to criminally investigate or prosecute any alcohol or drug abuse patient.[facility] CenterIn the event this information is protected by the Federal Confidentiality of Alcohol and Drug Abuse Patient Records regulations: The Federal rules restrict any use of the information to criminally investigate or prosecute any alcohol or drug abuse patient.[facility] CenterIn the event this information is protected by the Federal Confidentiality of Alcohol and Drug Abuse Patient Records regulations: The Federal rules restrict any use of the information to criminally investigate or prosecute any alcohol or drug abuse patient.[facility] CenterIn the event this information is protected by the Federal Confidentiality of Alcohol and Drug Abuse Patient Records regulations: The Federal rules restrict any use of the information to criminally investigate or prosecute any alcohol or drug abuse patient.[facility] CenterIn the event this information is protected by the Federal Confidentiality of Alcohol and Drug Abuse Patient Records regulations: The Federal rules restrict any use of the information to criminally investigate or prosecute any alcohol or drug abuse patient.[facility] CenterIn the event this information is protected by the Federal Confidentiality of Alcohol and Drug Abuse Patient Records regulations: The Federal rules restrict any use of the information to criminally investigate or prosecute any alcohol or drug abuse patient.[facility] CenterIn the event this information is protected by the Federal Confidentiality of Alcohol and Drug Abuse Patient Records regulations: The Federal rules restrict any use of the information to criminally investigate or prosecute any alcohol or drug abuse patient.[facility] CenterIn the event this information is protected by the Federal Confidentiality of Alcohol and Drug Abuse Patient Records regulations: The Federal rules restrict any use of the information to criminally investigate or prosecute any alcohol or drug abuse patient.[facility] CenterIn the event this information is protected by the Federal Confidentiality of Alcohol and Drug Abuse Patient Records regulations: The Federal rules restrict any use of the information to criminally investigate or prosecute any alcohol or drug abuse patient.[facility] CenterIn the event this information is protected by the Federal Confidentiality of Alcohol and Drug Abuse Patient Records regulations: The Federal rules restrict any use of the information to criminally investigate or prosecute any alcohol or drug abuse patient.[facility] CenterIn the event this information is protected by the Federal Confidentiality of Alcohol and Drug Abuse Patient Records regulations: The Federal rules restrict any use of the information to criminally investigate or prosecute any alcohol or drug abuse patient.[facility] CenterIn the event this information is protected by the Federal Confidentiality of Alcohol and Drug Abuse Patient Records regulations: The Federal rules restrict any use of the information to criminally investigate or prosecute any alcohol or drug abuse patient.[facility] CenterIn the event this information is protected by the Federal Confidentiality of Alcohol and Drug Abuse Patient Records regulations: The Federal rules restrict any use of the information to criminally investigate or prosecute any alcohol or drug abuse patient.[facility] CenterIn the event this information is protected by the Federal Confidentiality of Alcohol and Drug Abuse Patient Records regulations: The Federal rules restrict any use of the information to criminally investigate or prosecute any alcohol or drug abuse patient.[facility] CenterIn the event this information is protected by the Federal Confidentiality of Alcohol and Drug Abuse Patient Records regulations: The Federal rules restrict any use of the information to criminally investigate or prosecute any alcohol or drug abuse patient.[facility] CenterIn the event this information is protected by the Federal Confidentiality of Alcohol and Drug Abuse Patient Records regulations: The Federal rules restrict any use of the information to criminally investigate or prosecute any alcohol or drug abuse patient.[facility] CenterIn the event this information is protected by the Federal Confidentiality of Alcohol and Drug Abuse Patient Records regulations: The Federal rules restrict any use of the information to criminally investigate or prosecute any alcohol or drug abuse patient.[facility] CenterIn the event this information is protected by the Federal Confidentiality of Alcohol and Drug Abuse Patient Records regulations: The Federal rules restrict any use of the information to criminally investigate or prosecute any alcohol or drug abuse patient.[facility] CenterIn the event this information is protected by the Federal Confidentiality of Alcohol and Drug Abuse Patient Records regulations: The Federal rules restrict any use of the information to criminally investigate or prosecute any alcohol or drug abuse patient.[facility] CenterIn the event this information is protected by the Federal Confidentiality of Alcohol and Drug Abuse Patient Records regulations: The Federal rules restrict any use of the information to criminally investigate or prosecute any alcohol or drug abuse patient.[facility] CenterIn the event this information is protected by the Federal Confidentiality of Alcohol and Drug Abuse Patient Records regulations: The Federal rules restrict any use of the information to criminally investigate or prosecute any alcohol or drug abuse patient.[facility] CenterIn the event this information is protected by the Federal Confidentiality of Alcohol and Drug Abuse Patient Records regulations: The Federal rules restrict any use of the information to criminally investigate or prosecute any alcohol or drug abuse patient.[facility] CenterIn the event this information is protected by the Federal Confidentiality of Alcohol and Drug Abuse Patient Records regulations: The Federal rules restrict any use of the information to criminally investigate or prosecute any alcohol or drug abuse patient.[facility] CenterIn the event this information is protected by the Federal Confidentiality of Alcohol and Drug Abuse Patient Records regulations: The Federal rules restrict any use of the information to criminally investigate or prosecute any alcohol or drug abuse patient.[facility] CenterIn the event this information is protected by the Federal Confidentiality of Alcohol and Drug Abuse Patient Records regulations: The Federal rules restrict any use of the information to criminally investigate or prosecute any alcohol or drug abuse patient.[facility] CenterIn the event this information is protected by the Federal Confidentiality of Alcohol and Drug Abuse Patient Records regulations: The Federal rules restrict any use of the information to criminally investigate or prosecute any alcohol or drug abuse patient.[facility] CenterIn the event this information is protected by the Federal Confidentiality of Alcohol and Drug Abuse Patient Records regulations: The Federal rules restrict any use of the information to criminally investigate or prosecute any alcohol or drug abuse patient.[facility] CenterIn the event this information is protected by the Federal Confidentiality of Alcohol and Drug Abuse Patient Records regulations: The Federal rules restrict any use of the information to criminally investigate or prosecute any alcohol or drug abuse patient.[facility] CenterIn the event this information is protected by the Federal Confidentiality of Alcohol and Drug Abuse Patient Records regulations: The Federal rules restrict any use of the information to criminally investigate or prosecute any alcohol or drug abuse patient.[facility] CenterIn the event this information is protected by the Federal Confidentiality of Alcohol and Drug Abuse Patient Records regulations: The Federal rules restrict any use of the information to criminally investigate or prosecute any alcohol or drug abuse patient.[facility] Care Teams (unrecognized sec tion and content) Outcomes Specialist Relationship Specialty Start Date End Date Melvi Amaral MD [address] [facility] [place] [address] PCP - General 06/06/10 Outcomes Specialist Relationship Specialty Start Date End Date Melvi Amaral MD [address] [facility] [place] [address] PCP - General 06/06/10 Outcomes Specialist Relationship Specialty Start Date End Date Melvi Amaral MD [address] [facility] [place] [address] PCP - General 06/06/10 Outcomes Specialist Relationship Specialty Start Date End Date Melvi Amaral MD [address] [facility] [place] [address] PCP - General 06/06/10 Outcomes Specialist Relationship Specialty Start Date End Date Melvi Amaral MD [address] [facility] [place] [address] PCP - General 06/06/10 Outcomes Specialist Relationship Specialty Start Date End Date Melvi Amaral MD [address] [facility] [place] [address] PCP - General 06/06/10 Outcomes Specialist Relationship Specialty Start Date End Date Melvi Amaral MD [address] [facility] [place] [address] PCP - General 06/06/10 Outcomes Specialist Relationship Specialty Start Date End Date Melvi Amaral MD [address] [facility] [place] [address] PCP - General 06/06/10 Outcomes Specialist Relationship Specialty Start Date End Date Melvi Amaral MD [address] [facility] [place] [address] PCP - General 06/06/10 Outcomes Specialist Relationship Specialty Start Date End Date Melvi Amaral MD [address] [facility] [place] [address] PCP - General 06/06/10 Outcomes Specialist Relationship Specialty Start Date End Date Melvi Amaral MD [address] [place] [address] PCP - General 06/06/10 Outcomes Specialist Relationship Specialty Start Date End Date Melvi Amaral MD [address] [place] [address] PCP - General 06/06/10 Outcomes Specialist Relationship Specialty Start Date End Date Melvi Amaral MD [address] [place] [address] PCP - General 06/06/10 Outcomes Specialist Relationship Specialty Start Date End Date Melvi Amaral MD [address] [place] [address] PCP - General 06/06/10 Outcomes Specialist Relationship Specialty Start Date End Date Melvi Amaral MD [address] [place] [address] PCP - General 06/06/10 Outcomes Specialist Relationship Specialty Start Date End Date Melvi Amaral MD [address] [place] [address] PCP - General 06/06/10 Outcomes Specialist Relationship Specialty Start Date End Date Melvi Amaral MD [address] [place] [address] PCP - General 06/06/10 Outcomes Specialist Relationship Specialty Start Date End Date Melvi Amaral MD [address] [place] [address] PCP - General 06/06/10 Outcomes Specialist Relationship Specialty Start Date End Date Melvi Amaral MD [address] [place] [address] PCP - General 06/06/10 Outcomes Specialist Relationship Specialty Start Date End Date Melvi Amaral MD [address] [place] [address] PCP - General 06/06/10 Outcomes Specialist Relationship Specialty Start Date End Date Melvi Amaral MD [address] [place] [address] PCP - General 06/06/10 Outcomes Specialist Relationship Specialty Start Date End Date Melvi Amaral MD [address] [place] [address] PCP - General 06/06/10 Outcomes Specialist Relationship Specialty Start Date End Date Melvi Amaral MD [address] [place] [address] PCP - General 06/06/10 Outcomes Specialist Relationship Specialty Start Date End Date Melvi Amaral MD [address] [place] [address] PCP - General 06/06/10 Outcomes Specialist Relationship Specialty Start Date End Date Melvi Amaral MD [address] [place] [address] PCP - General 06/06/10 Zulay Valencia, SERVER.CERTIFIED PHYSICIAN'S ASSISTANT [address] [place] [address] Senior Geotechnical Engineer [facility] 10/24/24 Austyn Boo APRN.CERTIFIED PHYSICIAN'S ASSISTANT [address] [place] [address] Senior Geotechnical Engineer [facility] 11/02/24 Outcomes Specialist Relationship Specialty Start Date End Date Melvi Amaral MD [address] [place], [place] [address] PCP - General 06/06/10 Austyn Boo APRN.CERTIFIED PHYSICIAN'S ASSISTANT [address] [place] [address] [facility] 11/02/24 Outcomes Specialist Relationship Specialty Start Date End Date Melvi Amaral MD [address] [place], [place] [address] PCP - General 06/06/10 Austyn Boo APRN.CERTIFIED PHYSICIAN'S ASSISTANT [address] [place], [place] [address] [facility] 11/02/24 Reason for Visit (unrecogniz ed section and content) Reason Comments Medication Request antivirals Reason Comments Covid Follow Up Reason Comments Colon Polyps Specialty Diagnoses / Procedures Referred By Contac t Referred To Contact Colon and Rectal Surgery Diagnoses History of colonic polyps Procedures CONSULT TO COLO-RECTAL SURGERY OFFICE/OUTPATIENT [facility] MDM 60-74 MINUTES Melvi Amaral MD [address] [place] [address] Referral ID Status Reason Start Date Expiration Date Visits Requested Visits Authorized [id number] Pending Review PCP Requested Referral 02/15/2022 02/15/2023 1 1 Reason Comments Results Reason Comments Itching Reason Comments Spirometry Specialty Diagnoses / Procedures Referred By Contac t Referred To Contact [facility] Diagnoses Uncomplicated asthma, unspecified asthma severity, unspecified whether persistent Procedures SPIROMETRY - BASELINE AND POST DILATOR BRNCDILAT RSPSE SPMTRY PRE&POST-BRNCDILAT ADMN Fifi Salcido MD [address] [place] [address] [address] Referral ID Status Reason Start Date Expiration Date V isits Requested Visits Authorized [id number] Closed Auto-Generate d Referral 04/23/2022 05/22/2023 1 1 Specialty Diagnoses / Procedures [facility] To [facility] Diagnoses Uncomplicated asthma, unspecified asthma severity, unspecified whether persistent Procedures NITRIC OXIDE, EXHALED NITRIC OXIDE GAS DETERMINATION Fifi Salcido MD [address] [place] [address] [address] Referral ID Status Reason Start Date Expiration Date V isits Requested Visits Authorized [id number] Closed Auto-Generate d Referral 04/23/2022 05/22/2023 1 1 Reason Comments New Patient Asthma Reason Onset Date Comments Refill Request 09/20/2022 Reason Onset Date Comments Refill Request 05/15/2022 Refill Request 11/08/2022 Specialty Diagnoses / Procedures [facility] Diagnoses Mild persistent asthma without complication Procedures NITRIC OXIDE, EXHALED NITRIC OXIDE GAS DETERMINATION Fifi Salcido MD [address] [place] [address] [address] Referral ID Status Reason Start Date Expiration Date V isits Requested Visits Authorized [id number] Closed Auto-Generate d Referral 07/26/2022 08/25/2023 1 1 Reason Comments Established Patient 4 month follow up Reason Onset Date Comments Refill Request 12/02/2022 singulair Reason Onset Date Comments Population Health Navigation Outreach 05/05/2023 [place] Care Gap Reason Comments Established Patient 6 month follow up Reason Comments Physical Reason Onset Date Comments Refill Request 09/05/2023 Reason Comments Refill Request Reason Comments Established Patient asthma Reason Onset Date Comments Population Health Navigation Outreach 04/13/2024 [place] AWV/HCC and care gaps Reason Onset Date Comments Population [facility] Navigation Outreach 06/23/2024 Soni Regalado PCSA Specialty Diagnoses / Procedures Referred By Contgordo t Referred To Contact [facility] Diagnoses Asthma, unspecified asthma severity, unspecified whether complicated, unspecified whether persistent Procedures NITRIC OXIDE, EXHALED NITRIC OXIDE GAS DETERMINATION Fifi Salcido MD [address] [place] [address] [facility] [place] [address] [place] [address] Referral ID Status Reason Start Date Expiration Date V isits Requested Visits Authorized [id number] Closed Auto-Generate d Referral 12/29/2023 01/27/2025 1 1 Reason Comments Established Patient six month follow up Reason Comments due for appt Reason Comments Medication Problem Reason Comments Medicare Wellness Exam Reason Onset Date Comments Refill Request 09/10/2024 Reason Comments Consult Colonoscopy consulta tion. Reason Comments Syncope Reason Comments Orders FOR RECORDS PERTAINING TO PATIENTS WHO ARE OR HAVE BEEN ENROLLED IN A CHEMICAL DEPENDENCY/SUBSTANCEABUSE PROGRAM, SOME INFORMATION MAY BE OMITTED. This clinical summary was aggregated from multiple sources. Caution should be exercised in using it in the provision of clinical care. This summary normalizes information from multiple sources, and as a consequence, information in this document may materially change the coding, format and clinical context of patient data. In addition, data may be omitted in some cases. CLINICAL DECISIONS SHOULD BE BASED ON THE PRIMARY CLINICAL RECORDS. [employer] provides no warranty or guarantee of the accuracy or completeness of information in this document.
== END | disposition home or self-care (01) ==
PROVIDERS: Referring Provider Student in an Organized Health Care Education/Training Program; Visit Provider Student in an Organized Health Care Education/Training Program
DX: I35.1 Nonrheumatic aortic (valve) insufficiency (principal)
CPT/HCPCS: 93306